=== PATIENT | male | born 1970 | race Caucasian/White ===

== ENCOUNTER 2017-09-16 19:56 | Inpatient (IN) | payer MEDICARE ==
[~2017-09-16] VITALS: Ht 162.6 cm; Wt 54.0 kg
[2017-09-16 20:00] VITALS: PULSE 100
[2017-09-16 20:06] VITALS: BP 127/68; PULSE 98; RESP 24; TEMP 97.5; O2SAT 91
[2017-09-16 20:35] VITALS: O2SAT 94
[2017-09-16 22:00] VITALS: PULSE 113
[2017-09-16] MEDS ORDERED: LIDO1SOL8 SWISH-SWAL (22:11)
[2017-09-16] MEDS ORDERED: MAGNESIUM HYDROXIDE SUSP 30 ML CUP PO PRN (22:15)
[2017-09-16] MEDS ORDERED: BISACODYL 10 MG SUPP RECTAL PRN (22:15)
[2017-09-16] MEDS ORDERED: ACETAMINOPHEN 325 MG TAB PO PRN (22:15)
[2017-09-16] MEDS ORDERED: RESP: ALBUTEROL 2.5 MG/IPRATROPIUM 0.5 MG NEB (PRN) INH (22:15)
[2017-09-16] MEDS ORDERED: MISCELLANEOUS NURSING INFORMATION XX SCH (22:15)
[2017-09-16] MEDS ORDERED: SODIUM CHLORIDE 0.9% FLUSH 10 ML FLUSH IV FLUSH PRN (22:15)
[2017-09-16] MEDS ORDERED: CHLORHEXIDINE GLUCONATE 2 % 1 PACK (2 CLOTHS) TOP PRN (22:15)
[2017-09-16] MEDS ORDERED: ONDANSETRON HCL 4 MG/2 ML VIAL IV PUSH PRN (22:15)
[2017-09-16] MEDS ORDERED: LACTULOSE SYRUP 20 GM/30 ML CUP PO PRN (22:15)
[2017-09-16] MEDS ORDERED: SENNOSIDES 8.6 MG TAB PO PRN (22:15)
[2017-09-16] MEDS ORDERED: LIVA2TAB PO (22:16)
[2017-09-16] MEDS ORDERED: ATAZ1TAB PO (22:16)
[2017-09-16] MEDS ORDERED: EMTR1TAB4 PO (22:19)
--- NOTE | 2017-09-16 22:20 | HHI.HP ---
HPI Service Critical Care Medicine Primary Care Physician Unknown Admission Diagnosis Diagnosis: Travel History International Travel<30 Days: No Contact w/Intl Traveler <30 Da: No Traveled to Known Affected Are: No History of Present Illness 47-year-old very pleasant gentleman with past medical history of HIV on HAART meds at home, compliant with medications and followed by Dr. Preston in [place] for almost 30 years ([phone]) presented to [facility] with complaints of cough, shortness of breath, and fatigue. He also had a mild fever and chills. The CT of the chest at [facility] revealed extensive large cavitary pneumonia, multiple blebs suggestive of likely COPD and bullous emphysema and secondary infected blebs. Initial sputum revealed presumptive Pseudomonas aeruginosa, resistant to Levaquin, sensitive to Zosyn. Patient underwent needle aspiration of one of the cavitary lesions. The procedure was complicated by development of pneumothorax and subcutaneous emphysema with continues air leak. For this the patient is transferred to [facility] for higher level of care and possible CT surgery consultation. Review of Systems Constitutional: COMPLAINS OF: Diaphoretic episodes, Fatigue, Fever, Weight loss , Chills, Dizziness, Night Sweats, DENIES: Weight gain, Change in appetite Endocrine: DENIES: Heat/cold intolerance, Polydipsia, Polyuria, Polyphagia Eyes: DENIES: Blurred vision, Diplopia, Eye inflammation, Eye pain, Vision loss , Photosensitivity, Double Vision Ears, nose, mouth, throat: DENIES: Tinnitus, Hearing loss, Vertigo, Nasal discharge, Oral lesions, Throat pain, Hoarseness, Ear Pain, Running Nose, Epistaxis, Sinus Pain, Toothache, Odynophagia Respiratory: COMPLAINS OF: Cough, Sputum production, Shortness of breath, DENIES: Apneas, Snoring, Wheezing, Hemoptysis Cardiovascular: DENIES: Chest pain, Palpitations, Syncope, Dyspnea on Exertion , PND, Lower Extremity Edema, Orthopnea, Claudication Gastrointestinal: DENIES: Abdominal pain, Black stools, Bloody stools, Constipation, Diarrhea, Nausea, Vomiting, Difficulty Swallowing, Anorexia Genitourinary: DENIES: Sexual dysfunction, Urinary frequency, Urinary incontinence, Urgency, Hematuria, Dysuria, Nocturia, Penile Discharge, Testicular Pain, Testicular Swelling Musculoskeletal: DENIES: Joint pain, Muscle aches, Stiffness, Joint Swelling, Back pain, Neck pain Integumentary: DENIES: Abnormal pigmentation, Nail changes, Pruritus, Rash Hematologic/lymphatic: DENIES: Bruising, Lymphadenopathy Immunologic/allergic: DENIES: Eczema, Urticaria Neurologic: DENIES: Abnormal gait, Headache, Localized weakness, Paresthesias, Seizures, Speech Problems, Tremor, Poor Balance Psychiatric: DENIES: Anxiety, Confusion, Mood changes, Depression, Hallucinations, Agitation, Suicidal Ideation, Homicidal Ideation, Delusions Past Family Social History Allergies: Coded Allergies: No Known Allergies (Unverified , 09/16/17) Past Medical History HIV Past Surgical History Neck and back surgery Reported Medications Reported Meds & Active Scripts Active Reported Descovy (Emtricitabine-Tenofovir Alafenamide) 200-25 mg Tab 1 Tab PO DAILY Evotaz (Atazanavir-Cobicistat) 300-150 Mg Tab 1 Tab PO DAILY Livalo (Pitavastatin) 2 Mg Tab 2 Mg PO DAILY Lidocaine Viscous Liq 2 % Liqd 5 Ml SWISH-SWAL QID PRN Active Ordered Medications Current Medications Medications (Trade) Dose Ordered Sig/Jose Route PRN Reason Start Time Stop Time Status Last Admin Dose Admin Sodium Chloride 1,000 ml @ 84 mls/hr [id number] IV 09/16/17 23:00 09/16/17 23:15 Sodium Chloride (NS Flush) 2 ml UNSCH PRN IV FLUSH FLUSH AFTER USING IV ACCESS 09/16/17 22:15 Sodium Chloride (NS Flush) 2 ml BID IV FLUSH 09/17/17 09:00 Acetaminophen (Tylenol) 650 mg Q6H PRN PO PAIN 1-5 AND/OR FEVER >101F 09/16/17 22:15 Hydromorphone HCl (Dilaudid Pf Inj) 1 mg Q4H PRN IV PAIN SCALE 6 TO 10 09/16/17 22:45 09/16/17 22:43 Famotidine (Pepcid Inj) 20 mg Q12HR IV PUSH 09/17/17 09:00 Ondansetron HCl (Zofran Inj) 4 mg Q6H PRN IV PUSH NAUSEA OR VOMITING 09/16/17 22:15 Temazepam (Restoril) 15 mg HS PRN PO INSOMNIA 09/16/17 22:15 Albuterol/ Ipratropium (Duoneb Neb) 1 ampule Q4HR NEB INH 09/17/17 00:00 09/16/17 23:11 Albuterol/ Ipratropium (Duoneb Neb) 1 ampule Q2HR NEB PRN INH WHEEZING 09/16/17 22:15 Heparin Sodium (Porcine) (Heparin Inj) 5,000 units Q8HR SQ 09/16/17 22:40 Miscellaneous Information 1 Q361D XX 09/16/17 22:15 09/16/17 22:15 Chlorhexidine Gluconate (Chlorhexidine 2% Cloth) 3 pack Taper DAILY@04 TOP 09/17/17 04:00 09/13/18 03:59 Chlorhexidine Gluconate (Chlorhexidine 2% Cloth) 3 pack UNSCH PRN TOP HYGIENIC CARE 09/16/17 22:15 Senna/Docusate Sodium (Ashwini-Colace) 1 tab BID PO 09/17/17 09:00 Magnesium Hydroxide (Milk Of Magnesia Liq) 30 ml Q12H PRN PO Mild constipation 09/16/17 22:15 Sennosides (Senokot) 17.2 mg Q12H PRN PO Moderate constipation 09/16/17 22:15 Bisacodyl (Dulcolax Supp) 10 mg DAILY PRN RECTAL SEVERE CONSITIPATION 09/16/17 22:15 Lactulose (Lactulose Liq) 30 ml DAILY PRN PO SEVERE CONSITIPATION 09/16/17 22:15 Cefepime HCl 2000 mg/Sodium Chloride 100 ml @ 200 mls/hr Q8H IV 09/16/17 23:00 09/16/17 23:04 Azithromycin 500 mg/Sodium Chloride 250 ml @ 250 mls/hr Q24H IV 09/17/17 00:00 09/16/17 23:04 Metronidazole 100 ml @ 100 mls/hr Q8HR IV 09/16/17 22:45 09/16/17 23:14 Patient Own Medication PT OWN MED: NF- (Atazana... DAILY PO 09/17/17 09:00 Future Hold Patient Own Medication NF-(Emtricitabine 200mg-Tenofovir [id number]... DAILY PO 09/17/17 09:00 Future Hold Pravastatin Sodium (Pravachol) 40 mg DAILY PO 09/17/17 09:00 Family History Family history significant of malignancy Social History Smokes half pack per day denies alcohol or illicit drug abuse Physical Exam Vital Signs Vital Signs Date Time Temp Pulse Resp B/P (MAP) Pulse Ox O2 Delivery O2 Flow Rate FiO2 09/16/17 20:06 97.5 98 24 127/68 (87) 91 Physical Exam GENERAL: Cachectic sick gentleman in moderate respiratory distress on facemask nonrebreather SKIN: Warm and dry. HEAD: Normocephalic. EYES: No scleral icterus. No injection or drainage. NECK: Supple, trachea midline. No JVD or lymphadenopathy. CARDIOVASCULAR: Regular rate and rhythm without murmurs, gallops, or rubs. RESPIRATORY: Breath sounds equal bilaterally. No accessory muscle use. GASTROINTESTINAL: Abdomen soft, non-tender, nondistended. MUSCULOSKELETAL: No cyanosis, or edema. BACK: Nontender without obvious deformity. NEURO EXAM: GCS: 15 Mental Status: The patient is alert and oriented to person, place, and time with normal speech. Cranial Nerves: Visual acuity intact bilaterally. Visual vazquez normal in all quadrants. Pupils are round, reactive to light. Extraocular movements are intact without ptosis. Hearing is normal bilaterally. Voice is normal. Tongue protrudes midline and moves symmetrically. Reflexes: Biceps, patellar, and Achilles are 2/4 bilaterally. No clonus. Laboratory Laboratory Tests Test 09/16/17 20:00 Nasal Screen MRSA (PCR) MRSA DETECTED Septic Shock Reassessment Septic shock perfusion: reassessment completed Caprini VTE Risk Assessment Caprini VTE Risk Assessment: Mod/High Risk (score >= 2) Caprini Risk Assessment Model Point Value = 1 Point Value = 2 Point Value = 3 Point Value = 5 Age 41-60 Minor surgery BMI > 25 kg/m2 Swollen legs Varicose veins or History of unexplained or recurrent spontaneous Oral contraceptives or hormone replacement Sepsis (< 1 month) Serious lung disease, including pneumonia (< 1 month) Abnormal pulmonary function Acute myocardial infarction Congestive heart failure (< 1 month) History of inflammatory bowel disease Medical patient at bed rest Age 61-74 Arthroscopic surgery Major open surgery (> 45 min) Laparoscopic surgery (> 45 min) Malignancy Confined to bed (> 72 hours) Immobilizing plaster cast Central venous access Age >= 75 History of VTE Family history of VTE Factor V Leiden Prothrombin [id number] Lupus anticoagulant Anticardiolipin antibodies Elevated serum homocysteine Heparin-induced thrombocytopenia Other congenital or acquired thrombophilia Stroke (< 1 month) Elective arthroplasty Hip, pelvis, or leg fracture Acute spinal cord injury (< 1 month) Prophylaxis Regimen Total Risk Factor Score Risk Level Prophylaxis Regimen 0-1 Low Early ambulation 2 Moderate Order ONE of the following: *Sequential Compression Device (SCD) *Heparin 5000 units SQ BID 3-4 Higher Order ONE of the following medications: *Heparin 5000 units SQ TID *Enoxaparin/Lovenox 40 mg SQ daily (WT < 150 kg, CrCl > 30 mL/min) *Enoxaparin/Lovenox 30 mg SQ daily (WT < 150 kg, CrCl > 10-29 mL/min) *Enoxaparin/Lovenox 30 mg SQ BID (WT < 150 kg, CrCl > 30 mL/min) AND/OR *Sequential Compression Device (SCD) 5 or more Highest Order ONE of the following medications: *Heparin 5000 units SQ TID (Preferred with Epidurals) *Enoxaparin/Lovenox 40 mg SQ daily (WT < 150 kg, CrCl > 30 mL/min) *Enoxaparin/Lovenox 30 mg SQ daily (WT < 150 kg, CrCl > 10-29 mL/min) *Enoxaparin/Lovenox 30 mg SQ BID (WT < 150 kg, CrCl > 30 mL/min) AND *Sequential Compression Device (SCD) Assessment and Plan Assessment and Plan Subcutaneous emphysema Pneumothorax - Continue Chest tube in place to low wall suction - Pulmonary and cardiothoracic surgery consultation - CXR daily Pseudomonas pneumonia - Continue Zosyn per sensitivity from [facility] - Infectious disease consultation HIV infection - Continue home HAART meds - Further per ID COPD - DuoNeb scheduled and when necessary - No wheezing - No indication for steroids - Pulmonary consultation DVT GI prophylaxis - Teds SCDs - Subcutaneous heparin - Pepcid Critical Care: The total critical care time was 35 minutes. Time to perform other separately billable procedures was not included in the critical care time. Сергей Trujillo MD Sep 16, 2017 10:20 pm
[2017-09-16] MEDS: HEPARIN SODIUM - SQ 10,000 UNITS/ML VIAL SQ SCH (22:40)
[2017-09-16] MEDS: HYDROmorphone HCL PF 2 MG/ML VIAL IV PRN (22:43)
[2017-09-16] MEDS ORDERED: metroNIDAZOLE 500 MG INJ 100 ML IV SCH (22:45)
[2017-09-16] MEDS ORDERED: CEFEPIME INJ 2,000 MG in SODIUM CHLORIDE 0.9% INJ 100 ML IV SCH (23:00)
[2017-09-16] MEDS: RESP: ALBUTEROL 2.5 MG/IPRATROPIUM 0.5 MG NEB (SCH) INH (23:11)
[2017-09-16] MEDS: SODIUM CHLOR 0.9% 1000 ML INJ 1,000 ML IV SCH (23:15)
[2017-09-17] VITALS (14 sets, daily range): BP systolic 106–128; BP diastolic 57–75; PULSE 87–105; RESP 18–32; TEMP 97.6–98.6; O2SAT 92–98
[2017-09-17] MEDS ORDERED: AZITHROMYCIN INJ 500 MG in SODIUM CHLOR 0.9% 250 ML INJ 250 ML IV SCH ×2
[2017-09-17] MEDS: RESP: ALBUTEROL 2.5 MG/IPRATROPIUM 0.5 MG NEB (SCH) INH ×5 (03:12→20:01)
[2017-09-17 03:16] LABS: AUTOMATED NEUTROPHIL # 28.5 TH/MM3 (1.8-7.7); BASOPHIL % 0.1 % (0.0-2.0); EOSINOPHIL % 0.1 % (0.0-4.0); HEMATOCRIT 35.1 % (39.0-51.0); HEMOGLOBIN 11.9 GM/DL (13.0-17.0); LYMPH % 3.6 % (9.0-44.0); LYMPHOCYTE # 1.1 TH/MM3 (1.0-4.8); MEAN CELL VOLUME 90.8 FL (80.0-100.0); MEAN CORPUSCULAR HEMOGLOBIN 30.9 PG (27.0-34.0); MEAN PLATELET VOLUME 6.2 FL (7.0-11.0); MONO % 4.2 % (0.0-8.0); MONOCYTE # 1.3 TH/MM3 (0-0.9); PLATELET COUNT 413 TH/MM3 (150-450); RED BLOOD COUNT 3.86 MIL/MM3 (4.50-5.90); RED CELL DISTRIBUTION WIDTH 13.7 % (11.6-17.2); WHITE BLOOD COUNT 30.9 TH/MM3 (4.0-11.0)
[2017-09-17 03:26] LABS: INTERNATIONAL NORMALIZED RATIO 1.2 RATIO; PROTHROMBIN TIME - PATIENT 11.9 SEC (9.8-11.6)
[2017-09-17 03:34] LABS: ALBUMIN 1.6 GM/DL (3.4-5.0); ALT (GPT) 30 U/L (12-78); AST (GOT) 22 U/L (15-37); BICARBONATE 30.2 MEQ/L (21.0-32.0); BLOOD UREA NITROGEN 32 MG/DL (7-18); CALCIUM 8.5 MG/DL (8.5-10.1); CHLORIDE 101 MEQ/L (98-107); CREATININE 0.55 MG/DL (0.60-1.30); GLOMERULAR FILTRATION RATE 158 ML/MIN (>89); GLUCOSE,RANDOM 87 MG/DL (74-106); MAGNESIUM 2.3 MG/DL (1.5-2.5); PHOSPHORUS 2.7 MG/DL (2.5-4.9); SODIUM (NA) 137 MEQ/L (136-145)
[2017-09-17 03:37] LABS: ALKALINE PHOSPHATASE 132 U/L (45-117); TOTAL BILIRUBIN ADULT 3.5 MG/DL (0.2-1.0); TOTAL PROTEIN 5.6 GM/DL (6.4-8.2)
[2017-09-17] MEDS: HYDROmorphone HCL PF 2 MG/ML VIAL IV PRN ×5 (03:45→19:42)
[2017-09-17] MEDS: CHLORHEXIDINE GLUCONATE 2 % 1 PACK (2 CLOTHS) TOP SCH ×2 (03:46→23:05)
[2017-09-17 04:41] LABS: BANDS 16 % (0-6); METAMYELOCYTES 2 % (0-1); MONOCYTES 1 % (0-8); NEUTROPHIL # MANUAL DIFF 30.6 TH/MM3 (1.8-7.7); POLYS (SEG NEUTROPHILS) 81 % (16-70)
[2017-09-17 04:42] LABS: TOXIC GRANULATION 1+ (NORMAL)
[2017-09-17] MEDS: HEPARIN SODIUM - SQ 10,000 UNITS/ML VIAL SQ SCH ×3 (05:22→21:39)
[2017-09-17] MEDS: PIPERACIL-TAZO 4.5 GM PREMIX 100 ML IV SCH ×4 (05:22→21:40)
--- NOTE | 2017-09-17 05:40 | RADRPT ---
EXAM DATE/TIME: 09/17/2017 03:16 [place] COMPARISON: No previous studies available for comparison. INDICATIONS : Shortness of breath, possible pneumonia. MEDICAL HISTORY : None. SURGICAL HISTORY : None. ENCOUNTER: Initial ACUITY: 1 day PAIN SCORE: 0/10 LOCATION: Bilateral chest FINDINGS: A single AP semierect view of the chest was obtained and demonstrates a right-sided chest tube in nallely ce with the tip projected over the right side of the mediastinum. There is a right basilar pneumothor ax which is small to moderate in size. There is extensive subcutaneous emphysema bilaterally. There i s a large focal masslike area of high density in the right midlung. This measures up to approximately 6.6 cm. There is a more loculated appearing component of the pneumothorax above this. There is focal opacity at the right medial lung base. The left lung appears clear. The ribs appear intact. There ar e electrocardiogram leads. There is no effusion. There is no midline shift. CONCLUSION: 1. Right-sided chest tube in place with moderate right pneumothorax. There is a loculated pneumothora x component projects over the upper lobe and extensive bilateral subcutaneous emphysema. 2. Large masslike opacity in the right midlung. Adam Reis MD on September 17, 2017 at 5:35 Board Certified Radiologist. This report was verified electronically.
[2017-09-17] MEDS: DOCUSATE SODIUM 50 MG/SENNA 8.6 MG TAB PO SCH ×2 (08:26→19:43)
[2017-09-17] MEDS: FAMOTIDINE 20 MG/2 ML VIAL IV PUSH SCH ×2 (08:26→19:43)
[2017-09-17] MEDS: SODIUM CHLORIDE 0.9% FLUSH 10 ML FLUSH IV FLUSH SCH ×2 (08:26→19:38)
[2017-09-17] MEDS: PRAVASTATIN SOD 40 MG TAB PO SCH (08:26)
[2017-09-17] MEDS ORDERED: ATAZANAVIR 300 MG PO SCH (09:00)
[2017-09-17] MEDS ORDERED: TENOFOVIR ALAFENAMIDE 25 MG PO SCH (09:00)
[2017-09-17] MEDS ORDERED: COBICISTAT 150 MG PO SCH (09:00)
[2017-09-17] MEDS ORDERED: EMTRICITABINE 200 MG PO SCH (09:00)
[2017-09-17] MEDS: SODIUM CHLOR 0.9% 1000 ML INJ 1,000 ML IV SCH ×2 (11:37→21:43)
--- NOTE | 2017-09-17 11:53 | PD.ID.CON ---
History of Present Illness Service ID Consult Requested By Reason for Consult evaluation and Mment of Pseudomonas Pneumonia in a patient with preexisiting bleb. Primary Care Physician Unknown Diagnoses: History of Present Illness is a 47 y/o CM with PMHx of HIV on HAART for past 30 years per in [place]. I could not reach him at number provided [phone] will attempt to call him when more info available from [facility]. Info from [facility] reviewed, no culture micro data available. Reviewed hospitalist and ID notes and following information obtained so far. Patient is reportedly compliant with HIV meds with undetectable viral load and CD4 unknown. Patient reports to me that he was being treated with oral levaquin as outpatient for Pneumonia. Despite being treated for Pneumonia he had chest pain. When he presented to [facility] with complaints of cough, shortness of breath, and fatigue. He also had a mild fever and chills. The CT of the chest at [facility] revealed extensive large cavitary pneumonia, multiple blebs suggestive of likely COPD and bullous emphysema and secondary infected blebs. Patients PCP status is not known at present time and if this bleb is as a result of COPD or PCP related bullae. Initial sputum revealed presumptive Pseudomonas aeruginosa, resistant to Levaquin, sensitive to Zosyn. Patient underwent needle aspiration of one of the cavitary lesions. The procedure was complicated by development of pneumothorax and subcutaneous emphysema with continues air leak. Post procedure patient developed swelling around the neck and therefore it appears patient was transferred to [facility] for higher level of care and possible CT surgery consultation. ID is consulted for evaluation and Mment of Pseudomonas Pneumonia in a patient with preexisiting bleb. Review of Systems ROS Limitations: Poor Historian Constitutional: COMPLAINS OF: Weight loss, Change in appetite, DENIES: Diaphoretic episodes, Fatigue, Fever, Weight gain, Chills, Dizziness, Night Sweats Endocrine: DENIES: Heat/cold intolerance, Polydipsia, Polyuria, Polyphagia Eyes: DENIES: Blurred vision, Diplopia, Eye inflammation, Eye pain, Vision loss , Photosensitivity, Double Vision Ears, nose, mouth, throat: DENIES: Tinnitus, Hearing loss, Vertigo, Nasal discharge, Oral lesions, Throat pain, Hoarseness, Ear Pain, Running Nose, Epistaxis, Sinus Pain, Toothache, Odynophagia Respiratory: COMPLAINS OF: Shortness of breath Cardiovascular: COMPLAINS OF: Chest pain, DENIES: Palpitations, Syncope, Dyspnea on Exertion, PND, Lower Extremity Edema, Orthopnea, Claudication Gastrointestinal: DENIES: Abdominal pain, Black stools, Bloody stools, Constipation, Diarrhea, Nausea, Vomiting, Difficulty Swallowing, Anorexia Genitourinary: DENIES: Sexual dysfunction, Urinary frequency, Urinary incontinence, Urgency, Hematuria, Dysuria, Nocturia, Penile Discharge, Testicular Pain, Testicular Swelling Musculoskeletal: DENIES: Joint pain, Muscle aches, Stiffness, Joint Swelling, Back pain, Neck pain Integumentary: DENIES: Abnormal pigmentation, Nail changes, Pruritus, Rash Hematologic/lymphatic: DENIES: Bruising, Lymphadenopathy Immunologic/allergic: DENIES: Eczema, Urticaria Neurologic: DENIES: Abnormal gait, Headache, Localized weakness, Paresthesias, Seizures, Speech Problems, Tremor, Poor Balance Psychiatric: DENIES: Anxiety, Confusion, Mood changes, Depression, Hallucinations, Agitation, Suicidal Ideation, Homicidal Ideation, Delusions Except as stated in HPI: all other systems reviewed are Neg Past Family Social History Allergies: Coded Allergies: No Known Allergies (Unverified , 09/16/17) Past Medical History HIV Past Surgical History Neck and back surgery Reported Medications Reported Meds & Active Scripts Active Reported Descovy (Emtricitabine-Tenofovir Alafenamide) 200-25 mg Tab 1 Tab PO DAILY Evotaz (Atazanavir-Cobicistat) 300-150 Mg Tab 1 Tab PO DAILY Livalo (Pitavastatin) 2 Mg Tab 2 Mg PO DAILY Lidocaine Viscous Liq 2 % Liqd 5 Ml SWISH-SWAL QID PRN Active Ordered Medications Current Medications Medications (Trade) Dose Ordered Sig/Jose Route Start Time Stop Time Status Last Admin Sodium Chloride 1,000 ml @ 84 mls/hr [id number] IV 09/16/17 23:00 09/17/17 11:37 (NS Flush) 2 ml UNSCH PRN IV FLUSH 09/16/17 22:15 (NS Flush) 2 ml BID IV FLUSH 09/17/17 09:00 09/17/17 08:26 (Tylenol) 650 mg Q6H PRN PO 09/16/17 22:15 (Dilaudid Pf Inj) 1 mg Q4H PRN IV 09/16/17 22:45 09/17/17 11:36 (Pepcid Inj) 20 mg Q12HR IV PUSH 09/17/17 09:00 09/17/17 08:26 (Zofran Inj) 4 mg Q6H PRN IV PUSH 09/16/17 22:15 (Restoril) 15 mg HS PRN PO 09/16/17 22:15 (Duoneb Neb) 1 ampule Q4HR NEB INH 09/17/17 00:00 09/17/17 11:10 (Duoneb Neb) 1 ampule Q2HR NEB PRN INH 09/16/17 22:15 (Heparin Inj) 5,000 units Q8HR SQ 09/16/17 22:40 09/17/17 05:22 Miscellaneous Information 1 Q361D XX 09/16/17 22:15 09/16/17 22:15 (Chlorhexidine 2% Cloth) 3 pack Taper DAILY@04 TOP 09/17/17 04:00 09/13/18 03:59 09/17/17 03:46 (Chlorhexidine 2% Cloth) 3 pack UNSCH PRN TOP 09/16/17 22:15 (Ashwini-Colace) 1 tab BID PO 09/17/17 09:00 09/17/17 08:26 (Milk Of Magnesia Liq) 30 ml Q12H PRN PO 09/16/17 22:15 (Senokot) 17.2 mg Q12H PRN PO 09/16/17 22:15 (Dulcolax Supp) 10 mg DAILY PRN RECTAL 09/16/17 22:15 (Lactulose Liq) 30 ml DAILY PRN PO 09/16/17 22:15 Patient Own Medication PT OWN MED: NF- (Atazana... DAILY PO 09/17/17 09:00 Future Hold Patient Own Medication NF-(Emtricitabine 200mg-Tenofovir [id number]... DAILY PO 09/17/17 09:00 Future Hold (Pravachol) 40 mg DAILY PO 09/17/17 09:00 09/17/17 08:26 Piperacillin Sod/ Tazobactam Sod 100 ml @ 200 mls/hr Q6H IV 09/17/17 05:00 09/17/17 11:36 Family History reviewed Social History Lives with partner. From [facility]. Physical Exam Vital Signs Vital Signs Date Time Temp Pulse Resp B/P (MAP) Pulse Ox O2 Delivery O2 Flow Rate FiO2 09/17/17 08:08 98 Partial Rebreather 09/17/17 06:00 100 09/17/17 04:15 18 09/17/17 04:00 105 09/17/17 04:00 97.9 105 18 115/62 (79) 92 09/17/17 03:11 98 Partial Rebreather 13.00 09/17/17 02:00 97 09/17/17 00:00 98.0 102 20 128/75 (92) 94 09/17/17 00:00 102 09/16/17 22:00 113 09/16/17 20:35 94 Non-Rebreather 15.00 100 09/16/17 20:06 97.5 98 24 127/68 (87) 91 09/16/17 20:00 100 Physical Exam GENERAL: Thin built patient, in no apparent distress. SKIN: No rashes, ecchymoses or lesions. Cool and dry. HEAD: Atraumatic. Normocephalic. No temporal or scalp tenderness. EYES: Pupils equal round and reactive. Extraocular motions intact. No scleral icterus. No injection or drainage. ENT: Mask on face. Oral thrush. NECK: Trachea midline. Supple, nontender, no meningeal signs. CARDIOVASCULAR: HS audible. RESPIRATORY: Decreased AE on Right side. Rt side CT in place. GASTROINTESTINAL: Abdomen soft, non-tender, nondistended. MUSCULOSKELETAL: Extremities without clubbing, cyanosis, or edema. NEUROLOGICAL: Awake and alert. Non focal exam Psych cooperative IV line sites with no e.o infection Laboratory Laboratory Tests Test 09/16/17 20:00 09/17/17 03:05 Nasal Screen MRSA (PCR) MRSA DETECTED White Blood Count 30.9 Red Blood Count 3.86 Hemoglobin 11.9 Hematocrit 35.1 Mean Corpuscular Volume 90.8 Mean Corpuscular Hemoglobin 30.9 Mean Corpuscular Hemoglobin Concent 34.0 Red Cell Distribution Width 13.7 Platelet Count 413 Mean Platelet Volume 6.2 Neutrophils (%) (Auto) 92.0 Lymphocytes (%) (Auto) 3.6 Monocytes (%) (Auto) 4.2 Eosinophils (%) (Auto) 0.1 Basophils (%) (Auto) 0.1 Neutrophils # (Auto) 28.5 Lymphocytes # (Auto) 1.1 Monocytes # (Auto) 1.3 Eosinophils # (Auto) 0.0 Basophils # (Auto) 0.0 CBC Comment AUTO DIFF Differential Total Cells Counted 100 Neutrophils % (Manual) 81 Band Neutrophils % 16 Monocytes % 1 Neutrophils # (Manual) 30.6 Metamyelocytes 2 Differential Comment FINAL DIFF MANUAL Toxic Granulation 1+ Platelet Estimate NORMAL Platelet Morphology Comment NORMAL Prothrombin Time 11.9 Prothromb Time International Ratio 1.2 Blood Urea Nitrogen 32 Creatinine 0.55 Random Glucose 87 Total Protein 5.6 Albumin 1.6 Calcium Level 8.5 Phosphorus Level 2.7 Magnesium Level 2.3 Alkaline Phosphatase 132 Aspartate Amino Transf (AST/SGOT) 22 Alanine Aminotransferase (ALT/SGPT) 30 Total Bilirubin 3.5 Sodium Level 137 Potassium Level 3.4 Chloride Level 101 Carbon Dioxide Level 30.2 Anion Gap 6 Estimat Glomerular Filtration Rate 158 Lactic Acid Level 1.0 Date/Time Source Procedure Growth Status 09/17/17 00:35 Blood Peripheral Aerobic Blood Culture Pending Received 09/17/17 00:35 Blood Peripheral Anaerobic Blood Culture Pending Received Result Diagram: 09/17/17 0305 09/17/17 0305 Imaging Last Impressions Chest X-Ray 09/17/17 0000 Signed Impressions: Service Date/Time: August 03:16 - CONCLUSION: 1. Right-sided chest tube in place with moderate right pneumothorax. There is a loculated pneumothorax component projects over the upper lobe and extensive bilateral subcutaneous emphysema. 2. Large masslike opacity in the right midlung. Adam Reis MD Assessment and Plan Assessment and Plan Lung masses/abscesses or both. Pseudomonas Pneumonia. Unsure of the timing of the blebs (if these occurred years back as a result of COPD or PCP related Blebs) Acute resp failure Pneumothorax : ? post procedure vs spontaneous from bleb leak. HIV on HAART reportedly well controlled with undetectable viral load. High grade leucocytosis (sepsis, ? steroids) Recs: Continue Zosyn IV Sputum culture and gram stain Blood cultures x 2 CT chest with IV contrast: jl Minor. At risk for malignancy and infections due to HIV status. 2D ECHO r/o vegetations/endocarditis. 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 Follow cultures Follow clinically. dw MDs and patient: source control is important. May benefit from lung resection of one of the larger areas if clinically possible will defer to CTS. dw significant other in the room and patient: updated about plan: urgency to obtain micro and path and CTS opinion first. Depending on their input will provide further recs and also discuss with . Explained to partner I will speak to after more info as at this point I am in process of data gathering and addressing acute infectious process. Critical thinking and decision making. I will be off 09/18/2017 to 09/20/2017. Other ID MDs covering for me. Please check with [facility] call center. Anita Interiano MD Sep 17, 2017 11:53
[2017-09-17] MEDS: DESCOVY PO SCH (14:00)
[2017-09-17] MEDS: EVOTAZ PO SCH (14:00)
[2017-09-17] MEDS: ACETAMINOPHEN/HYDROcodone 325 MG/10 MG TAB PO PRN ×2 (16:14→21:39)
--- NOTE | 2017-09-17 17:54 | HHI.CCPN ---
Subjective Remarks/Hospital Course 09/16: 47-year-old very pleasant gentleman with past medical history of HIV on HAART meds at home, compliant with medications and followed by Dr. Preston in [place] for almost 30 years ([phone]) presented to [facility] with complaints of cough, shortness of breath, and fatigue. He also had a mild fever and chills. The CT of the chest at [facility] revealed extensive large cavitary pneumonia, multiple blebs suggestive of likely COPD and bullous emphysema and secondary infected blebs. Initial sputum revealed presumptive Pseudomonas aeruginosa, resistant to Levaquin, sensitive to Zosyn. Patient underwent needle aspiration of one of the cavitary lesions. The procedure was complicated by development of pneumothorax and subcutaneous emphysema with continues air leak. For this the patient is transferred to [facility] for higher level of care and possible CT surgery consultation. 09/17: Remains on partial rebreather. Persistent large air leak noted from right sided chest tube. Complains of chest pain off and on. Objective Vital Signs Date Time Temp Pulse Resp B/P (MAP) Pulse Ox O2 Delivery O2 Flow Rate FiO2 09/17/17 16:00 104 32 113/57 (75) 96 09/17/17 12:00 97.6 09/17/17 08:08 Partial Rebreather 09/17/17 03:11 13.00 09/16/17 20:35 100 Intake and Output 09/17/17 09/17/17 09/18/17 08:00 16:00 00:00 Intake Total 100 ml Output Total 550 ml Balance -450 ml Result Diagram: 09/17/17 0305 09/17/17 0305 Objective Remarks GENERAL: Cachectic sick gentleman in moderate respiratory distress on facemask partial rebreather SKIN: Warm and dry. HEAD: Normocephalic. EYES: No scleral icterus. No injection or drainage. NECK: Supple, trachea midline. No JVD or lymphadenopathy. CARDIOVASCULAR: Regular rate and rhythm without murmurs, gallops, or rubs. RESPIRATORY: Good air entry bilaterally no wheezing or crackles. Scattered rhonchi bilaterally. Right sided chest tube in place with significant positive air leak GASTROINTESTINAL: Abdomen soft, non-tender, nondistended. MUSCULOSKELETAL: No cyanosis, or edema. BACK: Nontender without obvious deformity. NEURO EXAM: Awake alert oriented 3, nonfocal grossly. A/P Assessment and Plan Subcutaneous emphysema Right Pneumothorax - Continue Chest tube in place to low wall suction - Pulmonary and cardiothoracic surgery consultation - CXR daily Pseudomonas pneumonia -Antibiotics per ID HIV infection - Continue home HAART meds - Further per ID COPD - DuoNeb scheduled and when necessary - No wheezing - No indication for steroids - Pulmonary consultation DVT GI prophylaxis - Teds SCDs - Subcutaneous heparin - Pepcid Discussed with Dr. Jose Camacho, D/W ID Possible plan for surgery next week per Dr. Camacho the pulmonary status is precarious. Philip Interiano MD Sep 17, 2017 17:54
--- NOTE | 2017-09-17 18:16 | MB ---
cc: Crow NULL DATE OF CONSULTATION 09/17/17 Mr. Ibrahim is a 47-year-old white male with a longstanding history of HIV, on therapy with a doctor in [facility]. He was admitted to [facility] for pneumonia. He was found to have cavitary infiltrate extensive in the right upper lobe as well as multiple blebs suggesting COPD/emphysema. He apparently had an aspiration of the infiltrate which revealed Pseudomonas. As a consequence of that procedure, he developed a pneumothorax, had a tube inserted and has had a persistent air leak. He was transferred here for consideration of additional interventions for the air leak and continued treatment of the infection. The patient is a two pack per day smoker, has smoked since he was a teen. Denies ever having been diagnosed with COPD prior to this, although he was given aerosol treatments two years ago with relief when he had what sounds like an exacerbation. PAST MEDICAL HISTORY 1. Longstanding history of HIV but with apparently very few complications currently on therapy. 2. Neck surgery, what sounds like a fusion for arthritis. No prior cardiovascular history. ALLERGIES None known. MEDICATIONS Reviewed in the EMR. SOCIAL HISTORY No alcohol or drug abuse. He lives with a male partner. REVIEW OF SYSTEMS He has had cough with some sputum. No hemoptysis. No chest pain. He developed subcutaneous air after the pneumothorax. That has apparently improved, but his voice has not returned to normal. Some chest discomfort, precordial, at present since the time of the chest tube insertion. No nausea, vomiting, abdominal pain or change in bowel habits and no chronic edema. PHYSICAL EXAMINATION VITAL SIGNS: 98 degrees, 113/60, respirations are 22, pulse is 100. HEENT: Sclerae anicteric. Mucous membranes are moist. NECK: Neck veins are not distended. LUNGS: Breath sounds are diminished, some scattered congestion, particularly on the right, no wheezing. HEART: Regular rhythm. No harsh murmur. EXTREMITIES: No peripheral edema. IMAGING STUDIES Chest x-ray Reveals a right upper lobe cavity with infiltrate at the base, possibly one or two air-fluid levels, patchy infiltrate in the left hilar region and at the right heart border. CT scan is pending. He has subcutaneous air as well and a chest tube in good position. I should have mentioned that the chest tube has an active air leak. DISCUSSION Mr. Ibrahim presents with what appears to be a large bulla in the right upper lobe, probably underlying emphysema given the history of smoking for his entire adult life. He also has HIV though and infectious disease is evaluating him and requesting the microbiology and pathology reports from the previous hospital. Thoracic surgery has also been consulted in light of the persistent air leak. We will continue him on oxygen therapy, tube to water seal, aerosol treatments three times a day and as needed. Further diagnostic and/or therapeutic intervention will depend on his ongoing clinical course. R. MD LAURI Canales/ /4:25 PM /5:54 PM
--- NOTE | 2017-09-17 20:59 | MB ---
cc: TOD WYLIE MD DATE OF CONSULTATION 09/17/17 1968 HISTORY OF PRESENT ILLNESS A 47-year-old male, history of HIV positive on heart medication HAART for the last 30 years with a doctor in [facility] who apparently is compliant with his medications with an undetectable viral load, CD-4 count was unknown. He was treated recently with Levaquin for outpatient pneumonia. He presented to [facility] on the , found to have cavitary pneumonia and, because of his HIV, they had also found that his CT scan showed an extensive large cavitary pneumonia, multiple blebs suggested of likely COPD, bullous emphysema and secondary infected blebs. The patient underwent needle aspiration of one of the cavitary lesions and it was complicated by development of a large hemothorax and subcutaneous emphysema with continuous air leak. They transferred the patient to our facility for higher care and for cardiovascular surgery consultation. They consulted Infectious Disease for evaluation of Pseudomonas pneumonia in a patient with preexisting blebs. PAST MEDICAL HISTORY 1. HIV positive. 2. Apparently has had significant weight loss in the several months, BMI of 17, marked muscle waist. PAST SURGICAL HISTORY Neck and back surgery. ALLERGIES No known allergies MEDICATIONS 1. Albuterol 2. 3. Fluconazole. 4. Duonebs. 5. Levaquin. 6. Singulair. 7. Neomycin 8. Polymyxin 90. 9. Nystatin 10. ____statin FAMILY HISTORY No history of the colon cancer or liver disease. SOCIAL HISTORY Smokes half a pack per day. No alcohol or illicit drugs. REVIEW OF SYSTEMS Positive for shortness of breath. No current chest pain. He has had some pain at site of his chest tube. Positive for recent weight loss. No joint swelling, redness, no paresthesia, no dysuria. PHYSICAL EXAMINATION VITAL SIGNS: Blood pressure 114/60, heart rate 104, temperature max 97.6, respiratory rate 26-28. GENERAL: He is awake, alert. He has a partial non-rebreather in place. HEENT: Head is normocephalic, atraumatic. Pupils equal and reactive. Oral mucosa pink, moist. NECK: Supple. No JVD. CARDIAC: S1, S2 slightly tachycardiac. No audible rubs or gallops. LUNGS: Very diminished in the bases, right versus the left. He has a pigtail catheter in the right with a positive air leak, minimal drainage. He has some subcuticular emphysema on the right upper chest wall. ABDOMEN: Soft, flat, concave. EXTREMITIES: No cyanosis, clubbing or edema. LABORATORY DATA Hemoglobin 11, hematocrit 35, white cell count of 30,000, platelet count 413. Sodium 137, potassium 3.4, BUN of 32, creatinine 0.5, CRP of 5.4, INR 1.2. MRSA nondetected. Blood cultures are pending. IMAGING STUDIES Chest x-ray shows some moderate right pneumothorax, loculated pneumothorax upper lobe, extensive bilateral subcu emphysema. IMPRESSION This is a 47-year-old with history of COPD, emphysema with bulla that was found to have a cavitary pneumonia where they did a biopsy. We will try to obtain the path report from [facility]. In the meantime, the patient will require right upper lobe lobectomy but we will need to discuss what his CD-4 counts are as I do not have that at this time. Also will not be able to evaluate with a pulmonary function test due to his current need for high-flow O2. Procedure, alternatives and risks will be discussed by Dr. Tod Wylie. Planning is possibly on Thursday. We will continue to try to wean the patient from the amount of O2 that he is. BRAYAN Killian Dictating for MD Blanquita Pryor/ /4:42 PM /8:27 PM
[2017-09-17] MEDS ORDERED: IOHEXOL 350 MG/ML 10 ML VIAL (for RAD DIAG) IVCONTRAST ONE (21:28)
[2017-09-17] MEDS: TEMAZEPAM 15 MG CAP PO PRN (21:39)
--- NOTE | 2017-09-17 22:00 | RADRPT ---
EXAM DATE/TIME: 09/17/2017 21:03 [place] COMPARISON: No previous studies available for comparison. INDICATIONS : Shortness of breath. Lung mass vs abscess. IV CONTRAST: 50 cc Omnipaque 350 (iohexol) IV RADIATION DOSE: 5.71 CTDIvol (mGy) MEDICAL HISTORY : None SURGICAL HISTORY : None. ENCOUNTER: Initial ACUITY: 1 day PAIN SCALE: 0/10 LOCATION: chest TECHNIQUE: Volumetric scanning of the chest was performed. Using automated exposure control and adjustment of t he mA and/or kV according to patient size, radiation dose was kept as low as reasonably achievable to obtain optimal diagnostic quality images. DICOM format image data is available electronically for r eview and comparison. Follow-up recommendations for detected pulmonary nodules are based at a minimum on nodule size and pa tient risk factors according to Fleischner Society Guidelines. FINDINGS: LUNGS: There is a large cavitary mass measuring 10.3 x 12.9 cm in the right apex with air-fluid level. This appears parenchymal with apparent communication to a right upper lobe bronchus. Moderate centrilobula r this edema of the left lung apex. Additional cavitary bilateral nodules which are largely subcentim eter in size. Air space consolidation at the extreme lung bases. PLEURA: Apical right anterior chest tube in good position. Moderate residual right-sided hydropneumothorax wi th abdominal phase subpulmonic air. MEDIASTINUM: Pneumomediastinum. Multiple subcentimeter mediastinal nodes. Slightly prominent right hilar lymph nod e. Very trace anterior pericardial effusion. Heart is otherwise unremarkable. AXILLAE: Extensive subcutaneous emphysema bilaterally. MUSCULOSKELETAL: Extensive soft tissue subcutaneous emphysema. MISCELLANEOUS: The visualized upper abdominal organs demonstrate no acute abnormality. POST CONTRAST: No abnormal areas of enhancement are seen. CONCLUSION: 1. Large cavitary mass measuring 10.3 x 12.9 cm in the right apex which appears parenchymal and is co nsistent with cavitary lung mass, abscess or secondarily infected. There are additional bilateral sub centimeter cavitary lung nodules. 2. Well-positioned apical right anterior chest tube with moderate residual right-sided inferior hydro pneumothorax. Patient may benefit from second inferiorly placed chest tube. 3. Extensive subcutaneous emphysema and pneumomediastinum. Charli Linder MD on September 17, 2017 at 21:51 Board Certified Radiologist. This report was verified electronically.
[2017-09-18] VITALS (21 sets, daily range): BP systolic 86–114; BP diastolic 53–69; PULSE 74–122; RESP 23–40; TEMP 97.9–98.9; O2SAT 96–100
[2017-09-18] MEDS: HYDROmorphone HCL PF 2 MG/ML VIAL IV PRN ×4 (05:29→18:53)
[2017-09-18] MEDS: HEPARIN SODIUM - SQ 10,000 UNITS/ML VIAL SQ SCH ×3 (05:30→20:22)
[2017-09-18] MEDS: PIPERACIL-TAZO 4.5 GM PREMIX 100 ML IV SCH ×4 (05:30→21:31)
[2017-09-18 05:32] LABS: AUTOMATED NEUTROPHIL # 14.6 TH/MM3 (1.8-7.7); BASOPHIL % 0.1 % (0.0-2.0); EOSINOPHIL % 0.1 % (0.0-4.0); HEMATOCRIT 30.5 % (39.0-51.0); HEMOGLOBIN 10.4 GM/DL (13.0-17.0); LYMPH % 5.9 % (9.0-44.0); MEAN CELL VOLUME 92.4 FL (80.0-100.0); MEAN CORPUSCULAR HEMOGLOBIN 31.6 PG (27.0-34.0); MEAN CORPUSCULAR HGB CONC 34.2 % (32.0-36.0); MEAN PLATELET VOLUME 6.1 FL (7.0-11.0); MONOCYTE # 1.2 TH/MM3 (0-0.9); NEUT % 86.9 % (16.0-70.0); PLATELET COUNT 360 TH/MM3 (150-450); RED CELL DISTRIBUTION WIDTH 13.8 % (11.6-17.2); WHITE BLOOD COUNT 16.7 TH/MM3 (4.0-11.0)
[2017-09-18 05:54] LABS: ALBUMIN 1.5 GM/DL (3.4-5.0); ALKALINE PHOSPHATASE 120 U/L (45-117); ALT (GPT) 22 U/L (12-78); AST (GOT) 21 U/L (15-37); BLOOD UREA NITROGEN 17 MG/DL (7-18); CALCIUM 8.2 MG/DL (8.5-10.1); CHLORIDE 101 MEQ/L (98-107); CREATININE 0.46 MG/DL (0.60-1.30); GLOMERULAR FILTRATION RATE 195 ML/MIN (>89); GLUCOSE,RANDOM 69 MG/DL (74-106); SODIUM (NA) 136 MEQ/L (136-145); TOTAL BILIRUBIN ADULT 0.7 MG/DL (0.2-1.0); TOTAL PROTEIN 5.2 GM/DL (6.4-8.2)
[2017-09-18] MEDS: RESP: ALBUTEROL 2.5 MG/IPRATROPIUM 0.5 MG NEB (SCH) INH ×3 (07:19→19:43)
[2017-09-18] MEDS: DOCUSATE SODIUM 50 MG/SENNA 8.6 MG TAB PO SCH ×2 (09:00→20:22)
[2017-09-18] MEDS: SODIUM CHLORIDE 0.9% FLUSH 10 ML FLUSH IV FLUSH SCH ×2 (09:00→20:21)
[2017-09-18] MEDS: EVOTAZ PO SCH (09:14)
[2017-09-18] MEDS: DESCOVY PO SCH (09:14)
[2017-09-18] MEDS: FAMOTIDINE 20 MG/2 ML VIAL IV PUSH SCH ×2 (09:14→20:20)
[2017-09-18] MEDS: PRAVASTATIN SOD 40 MG TAB PO SCH (09:15)
--- NOTE | 2017-09-18 09:28 | HHI.CCPN ---
Subjective Remarks/Hospital Course 09/16: 47-year-old very pleasant gentleman with past medical history of HIV on HAART meds at home, compliant with medications and followed by Dr. Preston in [place] for almost 30 years ([phone]) presented to [place] [place] [facility] with complaints of cough, shortness of breath, and fatigue. He also had a mild fever and chills. The CT of the chest at [place] [place] [place] revealed extensive large cavitary pneumonia, multiple blebs suggestive of likely COPD and bullous emphysema and secondary infected blebs. Initial sputum revealed presumptive Pseudomonas aeruginosa, resistant to Levaquin, sensitive to Zosyn. Patient underwent needle aspiration of one of the cavitary lesions. The procedure was complicated by development of pneumothorax and subcutaneous emphysema with continues air leak. For this the patient is transferred to [facility] for higher level of care and possible CT surgery consultation. 09/17: Remains on partial rebreather. Persistent large air leak noted from right sided chest tube. Complains of chest pain off and on. 09/18 Patient is on partial rebreather with sats 98-100%. Afebrile. Objective Vital Signs Date Time Temp Pulse Resp B/P (MAP) Pulse Ox O2 Delivery O2 Flow Rate FiO2 09/18/17 07:20 98 Partial Rebreather 09/18/17 06:00 74 09/18/17 04:00 98.3 32 114/65 (81) 09/17/17 20:00 12.00 09/16/17 20:35 100 Intake and Output 09/18/17 09/18/17 09/19/17 08:00 16:00 00:00 Intake Total 100 ml Output Total 900 ml Balance -800 ml Result Diagram: 09/18/17 0400 09/18/17 0400 Other Results Laboratory Tests Test 09/17/17 12:50 09/18/17 04:00 C-Reactive Protein 5.40 MG/DL White Blood Count 16.7 TH/MM3 Red Blood Count 3.30 MIL/MM3 Hemoglobin 10.4 GM/DL Hematocrit 30.5 % Mean Corpuscular Volume 92.4 FL Mean Corpuscular Hemoglobin 31.6 PG Mean Corpuscular Hemoglobin Concent 34.2 % Red Cell Distribution Width 13.8 % Platelet Count 360 TH/MM3 Mean Platelet Volume 6.1 FL Neutrophils (%) (Auto) 86.9 % Lymphocytes (%) (Auto) 5.9 % Monocytes (%) (Auto) 7.0 % Eosinophils (%) (Auto) 0.1 % Basophils (%) (Auto) 0.1 % Neutrophils # (Auto) 14.6 TH/MM3 Lymphocytes # (Auto) 1.0 TH/MM3 Monocytes # (Auto) 1.2 TH/MM3 Eosinophils # (Auto) 0.0 TH/MM3 Basophils # (Auto) 0.0 TH/MM3 CBC Comment DIFF FINAL Differential Comment Blood Urea Nitrogen 17 MG/DL Creatinine 0.46 MG/DL Random Glucose 69 MG/DL Total Protein 5.2 GM/DL Albumin 1.5 GM/DL Calcium Level 8.2 MG/DL Alkaline Phosphatase 120 U/L Aspartate Amino Transf (AST/SGOT) 21 U/L Alanine Aminotransferase (ALT/SGPT) 22 U/L Total Bilirubin 0.7 MG/DL Sodium Level 136 MEQ/L Potassium Level 3.5 MEQ/L Chloride Level 101 MEQ/L Carbon Dioxide Level 29.0 MEQ/L Anion Gap 6 MEQ/L Estimat Glomerular Filtration Rate 195 ML/MIN Imaging Last Impressions Chest X-Ray 09/17/17 0000 Signed Impressions: Service Date/Time: August 03:16 - CONCLUSION: 1. Right-sided chest tube in place with moderate right pneumothorax. There is a loculated pneumothorax component projects over the upper lobe and extensive bilateral subcutaneous emphysema. 2. Large masslike opacity in the right midlung. Adam Reis MD Chest CT 09/17/17 0000 Signed Impressions: Service Date/Time: August 21:03 - CONCLUSION: 1. Large cavitary mass measuring 10.3 x 12.9 cm in the right apex which appears parenchymal and is consistent with cavitary lung mass, abscess or secondarily infected. There are additional bilateral subcentimeter cavitary lung nodules. 2. Well-positioned apical right anterior chest tube with moderate residual right-sided inferior hydropneumothorax. Patient may benefit from second inferiorly placed chest tube. 3. Extensive subcutaneous emphysema and pneumomediastinum. Charli Linder MD Objective Remarks GENERAL: Cachectic sick gentleman on facemask partial rebreather SKIN: Warm and dry. HEAD: Normocephalic. EYES: No scleral icterus. No injection or drainage. NECK: Supple, trachea midline. No JVD or lymphadenopathy. CARDIOVASCULAR: Regular rate and rhythm without murmurs, gallops, or rubs. RESPIRATORY: Good air entry bilaterally no wheezing or crackles. Scattered rhonchi bilaterally. Right sided chest tube in place with significant positive air leak GASTROINTESTINAL: Abdomen soft, non-tender, nondistended. MUSCULOSKELETAL: No cyanosis, or edema. BACK: Nontender without obvious deformity. NEURO EXAM: Awake alert oriented 3, nonfocal grossly. A/P Assessment and Plan 1)Resp Insuff 2)Subcutaneous emphysema 3)Cavitary lung mass 4)Right hydro Pneumothorax 5)Pseudomonas pneumonia 6)HIV infection 7)COPD Plan Neuro: Awake and alert Pulm: Continue with oxygen keep sat >92% Bronchodilators CT chest showed Large cavitary mass measuring 10.3 x 12.9 cm in the right apex which appears parenchymal and is consistent with cavitary lung mass , abscess or secondarily infected. There are additional bilateral subcentimeter cavitary lung nodules. Well-positioned apical right anterior chest tube with moderate residual right-sided inferior hydropneumothorax. Extensive subcutaneous emphysema and pneumomediastinum. Pulm, CTS is following, for possible surgery next week ( RUL lobectomy ) CV: Monitor HR and BP keep MAP>65mmHg For 2D echo : Monitor renal function, I/O's, electrolytes replacement per protocol On NS@84ml/hr ID: Continue with abx ( Zosyn)add vanco Monitor for signs of infections ( Fever , WBC) WBC is trending down ID is following, follow up on 09/17- NGTD Check sputum cx, strep pneumonia and Legionella urinary Ag Heme: Monitor CBC Endo: SSI for glycemic control DVT GI prophylaxis - Teds SCDs - Subcutaneous heparin - Pepcid Level 2 Alanna Gore MD Sep 18, 2017 09:28
[2017-09-18] MEDS ORDERED: GLUCAGON 1 MG/ML VIAL OTHER PRN (09:30)
[2017-09-18] MEDS ORDERED: DEXTROSE 50% IN WATER 50 ML VIAL(D50) IV PUSH PRN (09:30)
[2017-09-18] MEDS ORDERED: VANCOMYCIN INJ 1,000 MG in SODIUM CHLOR 0.9% 250 ML INJ 250 ML IV SCH (09:30)
[2017-09-18] MEDS: INSULIN NovoLIN REGULAR SUPPLEMENTAL SCALE SQ SCH ×3 (10:00→20:46)
[2017-09-18] MEDS ORDERED: Vancomycin Consult Pharmacy 1 EA OTHER SCH (10:00)
[2017-09-18] MEDS: SODIUM CHLOR 0.9% 1000 ML INJ 1,000 ML IV SCH ×2 (12:05→21:32)
[2017-09-18] MEDS: ACETAMINOPHEN/HYDROcodone 325 MG/10 MG TAB PO PRN ×2 (12:05→20:23)
--- NOTE | 2017-09-18 12:47 | HHI.IDPN ---
Subjective Subjective Remarks ID X cover for Dr Interiano chart reviewed 47 yo male with HIV ax 20 yrs or so and large cavitary RUL mass diagnosed about 1 month ago He c/o productive cough co odynophagia states his CD4 1200 - on Evotaz+ Descovey His WBC down to 16K On NC O2 feels better He is afebrile, but is hypotensive, not on pressors Antibiotics [facility] Allergies: Coded Allergies: No Known Allergies (Unverified , 09/16/17) Objective . Vital Signs Date Time Temp Pulse Resp B/P (MAP) Pulse Ox O2 Delivery O2 Flow Rate FiO2 09/18/17 11:00 108 09/18/17 11:00 108 30 94/53 (67) 96 09/18/17 10:00 107 09/18/17 10:00 107 36 91/58 (69) 98 09/18/17 09:00 110 33 96/69 (78) 100 09/18/17 09:00 110 09/18/17 08:01 107 37 86/67 (73) 96 09/18/17 08:01 107 09/18/17 08:00 105 09/18/17 08:00 98.1 105 40 99 09/18/17 07:20 98 Partial Rebreather 09/18/17 06:00 74 09/18/17 04:00 98.3 92 32 114/65 (81) 100 09/18/17 04:00 92 09/18/17 02:00 95 09/18/17 00:00 84 09/18/17 00:00 97.9 84 25 111/61 (78) 98 09/17/17 22:00 98 09/17/17 20:00 99 09/17/17 20:00 98 Partial Rebreather 12.00 09/17/17 20:00 97.9 99 28 106/58 (74) 94 09/17/17 18:00 87 09/17/17 17:00 97 09/17/17 16:00 104 32 113/57 (75) 96 09/17/17 16:00 104 09/17/17 16:00 104 09/17/17 14:00 105 . Laboratory Tests Test 09/17/17 03:05 09/18/17 04:00 White Blood Count 30.9 TH/MM3 16.7 TH/MM3 Red Blood Count 3.86 MIL/MM3 3.30 MIL/MM3 Hemoglobin 11.9 GM/DL 10.4 GM/DL Hematocrit 35.1 % 30.5 % Mean Corpuscular Volume 90.8 FL 92.4 FL Mean Corpuscular Hemoglobin 30.9 PG 31.6 PG Mean Corpuscular Hemoglobin Concent 34.0 % 34.2 % Red Cell Distribution Width 13.7 % 13.8 % Platelet Count 413 TH/MM3 360 TH/MM3 Mean Platelet Volume 6.2 FL 6.1 FL Neutrophils (%) (Auto) 92.0 % 86.9 % Lymphocytes (%) (Auto) 3.6 % 5.9 % Monocytes (%) (Auto) 4.2 % 7.0 % Eosinophils (%) (Auto) 0.1 % 0.1 % Basophils (%) (Auto) 0.1 % 0.1 % Neutrophils # (Auto) 28.5 TH/MM3 14.6 TH/MM3 Lymphocytes # (Auto) 1.1 TH/MM3 1.0 TH/MM3 Monocytes # (Auto) 1.3 TH/MM3 1.2 TH/MM3 Eosinophils # (Auto) 0.0 TH/MM3 0.0 TH/MM3 Basophils # (Auto) 0.0 TH/MM3 0.0 TH/MM3 CBC Comment AUTO DIFF DIFF FINAL Differential Total Cells Counted 100 Neutrophils % (Manual) 81 % Band Neutrophils % 16 % Monocytes % 1 % Neutrophils # (Manual) 30.6 TH/MM3 Metamyelocytes 2 % Differential Comment FINAL DIFF MANUAL Toxic Granulation 1+ Platelet Estimate NORMAL Platelet Morphology Comment NORMAL Laboratory Tests Test 09/17/17 03:05 09/17/17 12:50 09/18/17 04:00 Blood Urea Nitrogen 32 MG/DL 17 MG/DL Creatinine 0.55 MG/DL 0.46 MG/DL Random Glucose 87 MG/DL 69 MG/DL Total Protein 5.6 GM/DL 5.2 GM/DL Albumin 1.6 GM/DL 1.5 GM/DL Calcium Level 8.5 MG/DL 8.2 MG/DL Phosphorus Level 2.7 MG/DL Magnesium Level 2.3 MG/DL Alkaline Phosphatase 132 U/L 120 U/L Aspartate Amino Transf (AST/SGOT) 22 U/L 21 U/L Alanine Aminotransferase (ALT/SGPT) 30 U/L 22 U/L Total Bilirubin 3.5 MG/DL 0.7 MG/DL Sodium Level 137 MEQ/L 136 MEQ/L Potassium Level 3.4 MEQ/L 3.5 MEQ/L Chloride Level 101 MEQ/L 101 MEQ/L Carbon Dioxide Level 30.2 MEQ/L 29.0 MEQ/L Anion Gap 6 MEQ/L 6 MEQ/L Estimat Glomerular Filtration Rate 158 ML/MIN 195 ML/MIN Lactic Acid Level 1.0 mmol/L C-Reactive Protein 5.40 MG/DL Microbiology Date/Time Source Procedure Growth Status 09/17/17 00:35 Blood Peripheral Aerobic Blood Culture - Preliminary NO GROWTH IN 1 DAY Resulted 09/17/17 00:35 Blood Peripheral Anaerobic Blood Culture - Preliminary NO GROWTH IN 1 DAY Resulted 09/17/17 00:31 Blood Peripheral Aerobic Blood Culture - Preliminary NO GROWTH IN 1 DAY Resulted 09/17/17 00:31 Blood Peripheral Anaerobic Blood Culture - Preliminary NO GROWTH IN 1 DAY Resulted 09/18/17 11:45 Sputum Expectorated Sputum Gram Stain Pending Received 09/18/17 11:45 Sputum Expectorated Sputum Sputum Culture Pending Received 09/18/17 11:56 Urine Catheterized Urine Legionella Antigen Pending Received 09/18/17 11:56 Urine Catheterized Urine Streptococcus pneumoniae Antigen (M Pending Received Imaging Last Impressions Chest X-Ray 09/17/17 0000 Signed Impressions: Service Date/Time: August 03:16 - CONCLUSION: 1. Right-sided chest tube in place with moderate right pneumothorax. There is a loculated pneumothorax component projects over the upper lobe and extensive bilateral subcutaneous emphysema. 2. Large masslike opacity in the right midlung. Adam Reis MD Chest CT 09/17/17 0000 Signed Impressions: Service Date/Time: August 21:03 - CONCLUSION: 1. Large cavitary mass measuring 10.3 x 12.9 cm in the right apex which appears parenchymal and is consistent with cavitary lung mass, abscess or secondarily infected. There are additional bilateral subcentimeter cavitary lung nodules. 2. Well-positioned apical right anterior chest tube with moderate residual right-sided inferior hydropneumothorax. Patient may benefit from second inferiorly placed chest tube. 3. Extensive subcutaneous emphysema and pneumomediastinum. Charli Linder MD Physical Exam CONSTITUTIONAL/GENERAL: This a thin cachectic patient, in no apparent distress. TUBES/LINES/DRAINS: SKIN: No jaundice, rashes, or lesions. Skin temperature appropriate. Not diaphoretic. HEAD: Atraumatic. Normocephalic. EYES: Pupils equal and round and reactive. Extraocular motions intact. No scleral icterus. No injection or drainage. Fundi not examined. ENT: Hearing grossly normal. Nose without bleeding or purulent drainage. Throat without visible erythema, exudates, masses, or lesions. No thrush NECK: Trachea midline. Supple, nontender. No palpable thyroid enlargement or nodularity. CARDIOVASCULAR: Regular rate and rhythm without murmurs, gallops, or rubs. No JVD. Peripheral pulses symmetric. RESPIRATORY/CHEST: Symmetric, unlabored respirations. Clear to auscultation. Breath sounds amphoric to R apex + RUL rhonchi. + increased egophonic (markedly ) R apex GASTROINTESTINAL: Abdomen soft, non-tender, nondistended. No hepato-splenomegaly , or palpable masses. No guarding. Bowel sounds present. GENITOURINARY: Without palpable bladder distension. MUSCULOSKELETAL: Extremities without clubbing, cyanosis, or edema. No joint tenderness or effusion noted. No calf tenderness. No mottling or clubbing. LYMPHATICS: No palpable cervical or supraclavicular adenopathy. NEUROLOGICAL: Awake and alert. Motor and sensory grossly within normal limits. Follows commands. Clear speech . Moves all extremities. PSYCHIATRIC: No obvious anxiety/depression. no apparent hallucinations or other psychotic thought process. Assessment & Plan Remarks Pseudomonas Pneumonia. Unsure of the timing of the blebs (if these occurred years back as a result of COPD or PCP related Blebs) jl [facility]: he has no bx done there, but has thoracocenthesis with cytology and culture: I requested the report Acute resp failure Pneumothorax : ? post procedure vs spontaneous from bleb leak. HIV on HAART reportedly well controlled with undetectable viral load. High grade leucocytosis (sepsis, ? steroids) Recs: Continue Zosyn IV Sputum culture and gram stain Blood cultures x 2 CT chest with IV contrast At risk for malignancy and infections due to HIV status. 2D ECHO r/o vegetations/endocarditis. Continue HAART per (patient's HIV doctor in [place]) jl pt dw his s/o @ b/s jl RN talked to pathologist tad @ [facility] Follow cultures Follow clinically. jl Camacho agree with plan for lobectomy Thursday Angelique Roche MD Sep 18, 2017 12:47
[2017-09-18] MEDS: VANCOMYCIN INJ 750 MG in SODIUM CHLOR 0.9% 250 ML INJ 250 ML IV SCH ×2 (12:58→20:21)
--- NOTE | 2017-09-18 14:07 | PD.CAR.PN ---
CVT Progress Note Subjective/Hospital Course: A 47-year-old male, history of HIV positive on heart medication HAART for the last 30 years with a doctor in [facility] who apparently is compliant with his medications with an undetectable viral load, CD-4 1200 He was treated recently with Levaquin for outpatient pneumonia. He presented to [facility] on the , found to have cavitary pneumonia and, because of his HIV, they had also found that his CT scan showed an extensive large cavitary pneumonia, multiple blebs suggested of likely COPD, bullous emphysema and secondary infected blebs. The patient underwent needle aspiration of one of the cavitary lesions and it was complicated by development of a large hemothorax and subcutaneous emphysema with continuous air leak. They transferred the patient to our facility for higher care and for cardiovascular surgery consultation. They consulted Infectious Disease for evaluation of Pseudomonas pneumonia in a patient with preexisting blebs. 09/18 pt still has intermittent air leak / now on 4 liter nasal cannula sitting up in bed, still scheduled for tentative surgery on Thursday Objective: GENERAL: A&O x 3 SKIN: Warm and dry. HEAD: Normocephalic. EYES: No scleral icterus. No injection or drainage. NECK: Supple, trachea midline. No JVD or lymphadenopathy. CARDIOVASCULAR: Regular rate and rhythm without murmurs, gallops, or rubs. RESPIRATORY: Breath sounds equal bilaterally. No accessory muscle use. right lateral chest tube to 20cm wall suction + intermittent air leak / + subq emphysema GASTROINTESTINAL: Abdomen soft, non-tender, nondistended. MUSCULOSKELETAL: No cyanosis, or edema. BACK: Nontender without obvious deformity. No CVA tenderness. Vital Signs Date Time Temp Pulse Resp B/P (MAP) Pulse Ox O2 Delivery O2 Flow Rate FiO2 09/18/17 12:00 104 09/18/17 12:00 98.5 104 28 97/63 (74) 96 09/18/17 11:00 108 09/18/17 11:00 108 30 94/53 (67) 96 09/18/17 10:00 107 09/18/17 10:00 107 36 91/58 (69) 98 09/18/17 09:00 110 33 96/69 (78) 100 09/18/17 09:00 110 09/18/17 08:01 107 37 86/67 (73) 96 09/18/17 08:01 107 09/18/17 08:00 105 09/18/17 08:00 98.1 105 40 99 09/18/17 07:20 98 Partial Rebreather 09/18/17 06:00 74 09/18/17 04:00 98.3 92 32 114/65 (81) 100 09/18/17 04:00 92 09/18/17 02:00 95 09/18/17 00:00 84 09/18/17 00:00 97.9 84 25 111/61 (78) 98 09/17/17 22:00 98 09/17/17 20:00 99 09/17/17 20:00 98 Partial Rebreather 12.00 09/17/17 20:00 97.9 99 28 106/58 (74) 94 09/17/17 18:00 87 09/17/17 17:00 97 09/17/17 16:00 104 32 113/57 (75) 96 09/17/17 16:00 104 09/17/17 16:00 104 09/17/17 14:00 105 Labs: Laboratory Tests Test 09/18/17 04:00 White Blood Count 16.7 TH/MM3 (4.0-11.0) Red Blood Count 3.30 MIL/MM3 (4.50-5.90) Hemoglobin 10.4 GM/DL (13.0-17.0) Hematocrit 30.5 % (39.0-51.0) Mean Corpuscular Volume 92.4 FL (80.0-100.0) Mean Corpuscular Hemoglobin 31.6 PG (27.0-34.0) Mean Corpuscular Hemoglobin Concent 34.2 % (32.0-36.0) Red Cell Distribution Width 13.8 % (11.6-17.2) Platelet Count 360 TH/MM3 (150-450) Mean Platelet Volume 6.1 FL (7.0-11.0) Neutrophils (%) (Auto) 86.9 % (16.0-70.0) Lymphocytes (%) (Auto) 5.9 % (9.0-44.0) Monocytes (%) (Auto) 7.0 % (0.0-8.0) Eosinophils (%) (Auto) 0.1 % (0.0-4.0) Basophils (%) (Auto) 0.1 % (0.0-2.0) Neutrophils # (Auto) 14.6 TH/MM3 (1.8-7.7) Lymphocytes # (Auto) 1.0 TH/MM3 (1.0-4.8) Monocytes # (Auto) 1.2 TH/MM3 (0-0.9) Eosinophils # (Auto) 0.0 TH/MM3 (0-0.4) Basophils # (Auto) 0.0 TH/MM3 (0-0.2) CBC Comment DIFF FINAL Differential Comment Blood Urea Nitrogen 17 MG/DL (7-18) Creatinine 0.46 MG/DL (0.60-1.30) Random Glucose 69 MG/DL (74-106) Total Protein 5.2 GM/DL (6.4-8.2) Albumin 1.5 GM/DL (3.4-5.0) Calcium Level 8.2 MG/DL (8.5-10.1) Alkaline Phosphatase 120 U/L (45-117) Aspartate Amino Transf (AST/SGOT) 21 U/L (15-37) Alanine Aminotransferase (ALT/SGPT) 22 U/L (12-78) Total Bilirubin 0.7 MG/DL (0.2-1.0) Sodium Level 136 MEQ/L (136-145) Potassium Level 3.5 MEQ/L (3.5-5.1) Chloride Level 101 MEQ/L (98-107) Carbon Dioxide Level 29.0 MEQ/L (21.0-32.0) Anion Gap 6 MEQ/L (5-15) Estimat Glomerular Filtration Rate 195 ML/MIN (>89) Result Diagram: 09/18/1739909/18/17399 Telemetry: NSR > ST (1) COPD (chronic obstructive pulmonary disease) (2) Cavitary lesion of lung (3) HIV disease (4) Pneumothorax on right Plan: for right thoracotomy right upper lobectomy on 09/21 Rosemary Montes Sep 18, 2017 14:06
[2017-09-18] MEDS ORDERED: Gentamicin Consult Pharmacy 1 EA OTHER SCH (15:30)
--- NOTE | 2017-09-18 16:39 | ECHRPT ---
Indication: endocarditis CONCLUSIONS Normal left ventricular size. The left ventricular systolic function is low normal with an estimated ejection fraction in the rang e of 50- 55%. The pulmonary valve is not well visualized. BP: / HR: Rhythm: MEASUREMENTS (Male / Female) Normal Values Technical Quality:Very technically difficult study 2D ECHO LV Ejection Fraction MOD 4C 53.8 % LV Ejection Fraction 4C AL 56.2 % DOPPLER Mitral E Point Velocity 56.8 cm/s Mitral A Point Velocity 72.1 cm/s Mitral E to A Ratio 0.8 LV E' Lateral Velocity 7.9 cm/s Mitral E to LV E' Lateral Ratio 7.2 LV E' Septal Velocity 5.9 cm/s Mitral E to LV E' Septal Ratio 9.7 TR Peak Velocity 235.0 cm/s TR Peak Gradient 22.1 mmHg Right Atrial Pressure 10.0 mmHg Pulmonary Artery Systolic Pressu 32.1 mmHg Right Ventricular Systolic Press 32.1 mmHg FINDINGS LEFT VENTRICLE Normal left ventricular size. The left ventricular systolic function is low normal with an estimated ejection fraction in the rang e of 50- 55%. RIGHT VENTRICLE Normal right ventricular size and systolic function. LEFT ATRIUM The left atrial size is normal. RIGHT ATRIUM The right atrial size is normal. ATRIAL SEPTUM Normal atrial septal thickness without atrial level shunting by limited color doppler interrogation. AORTA The aortic root and proximal ascending aorta are normal in size on limited imaging. MITRAL VALVE Structurally normal mitral valve. No mitral valve stenosis or regurgitation. AORTIC VALVE Trileaflet aortic valve. No aortic valve stenosis or regurgitation. TRICUSPID VALVE Structurally normal tricuspid valve. No tricuspid valve stenosis or regurgitation. PULMONARY VALVE The pulmonary valve is not well visualized. VESSELS The inferior vena cava is normal in size. PERICARDIUM No pericardial effusion. Celio Bruno MD, FACC (Electronically Signed) Final Date:18 September 2017 16:39
[2017-09-18] MEDS ORDERED: GENTAMICIN INJ 300 MG in SODIUM CHLORIDE 0.9% INJ 100 ML IV ONE (18:00)
--- NOTE | 2017-09-18 18:27 | RADRPT ---
EXAM DATE/TIME: 09/18/2017 18:09 [facility] COMPARISON: CT THORAX W & W/O CONTRAST, September 17, 2017, 21:03. CHEST SINGLE AP, September 17, 2017, 3:16. INDICATIONS : Follow up pneumothorax MEDICAL HISTORY : None. SURGICAL HISTORY : None. ENCOUNTER: Initial ACUITY: 1 day PAIN SCORE: 10/10 LOCATION: Right chest FINDINGS: Large cavitary mass in the right lung apex. Stable right base pneumothorax. Right thoracostomy tube r emains stable in position. Left lung remains clear. Extensive subcutaneous emphysema bilaterally. Car diac contours are grossly stable. CONCLUSION: No significant change Kosta Frias MD on September 18, 2017 at 18:24 Board Certified Radiologist. This report was verified electronically.
[2017-09-18] MEDS: TEMAZEPAM 15 MG CAP PO PRN (21:31)
--- NOTE | 2017-09-18 22:08 | HHI.PR ---
Addendum to Inpatient Note Additional Information otes from [facility] obtained on fluid: benign cytology PSAE I cefepime R leva S zosymacey, doug blake [employer] stain/fungal stain neg cont zosyn; add tob fluc Angelique Roche MD Sep 18, 2017 22:08
[2017-09-19] VITALS (14 sets, daily range): BP systolic 97–122; BP diastolic 58–75; PULSE 65–122; RESP 17–31; TEMP 98.3–98.6; O2SAT 94–100
[2017-09-19] MEDS: INSULIN NovoLIN REGULAR SUPPLEMENTAL SCALE SQ SCH ×4 (03:54→22:00)
[2017-09-19] MEDS: PIPERACIL-TAZO 4.5 GM PREMIX 100 ML IV SCH ×4 (03:55→22:18)
[2017-09-19] MEDS: CHLORHEXIDINE GLUCONATE 2 % 1 PACK (2 CLOTHS) TOP SCH (03:55)
[2017-09-19] MEDS: VANCOMYCIN INJ 750 MG in SODIUM CHLOR 0.9% 250 ML INJ 250 ML IV SCH ×2 (03:55→13:42)
[2017-09-19] MEDS: HEPARIN SODIUM - SQ 10,000 UNITS/ML VIAL SQ SCH ×3 (04:14→22:16)
[2017-09-19 04:40] LABS: AUTOMATED NEUTROPHIL # 15.6 TH/MM3 (1.8-7.7); BASOPHIL % 0.1 % (0.0-2.0); EOSINOPHIL % 0.1 % (0.0-4.0); HEMATOCRIT 37.3 % (39.0-51.0); HEMOGLOBIN 12.3 GM/DL (13.0-17.0); LYMPH % 4.9 % (9.0-44.0); LYMPHOCYTE # 0.9 TH/MM3 (1.0-4.8); MEAN CELL VOLUME 93.5 FL (80.0-100.0); MEAN CORPUSCULAR HEMOGLOBIN 30.9 PG (27.0-34.0); MEAN CORPUSCULAR HGB CONC 33.1 % (32.0-36.0); MEAN PLATELET VOLUME 6.5 FL (7.0-11.0); MONO % 5.6 % (0.0-8.0); NEUT % 89.3 % (16.0-70.0); PLATELET COUNT 300 TH/MM3 (150-450); RED BLOOD COUNT 3.99 MIL/MM3 (4.50-5.90); RED CELL DISTRIBUTION WIDTH 14.1 % (11.6-17.2); WHITE BLOOD COUNT 17.5 TH/MM3 (4.0-11.0)
[2017-09-19 05:01] LABS: BICARBONATE 22.9 MEQ/L (21.0-32.0); CALCIUM 8.2 MG/DL (8.5-10.1); CREATININE 0.42 MG/DL (0.60-1.30); MAGNESIUM 1.9 MG/DL (1.5-2.5); PHOSPHORUS 1.6 MG/DL (2.5-4.9); RANDOM GENTAMICIN 2.2 MCG/ML
[2017-09-19] MEDS: HYDROmorphone HCL PF 2 MG/ML VIAL IV PRN ×4 (05:33→19:48)
[2017-09-19] MEDS: RESP: ALBUTEROL 2.5 MG/IPRATROPIUM 0.5 MG NEB (SCH) INH ×3 (07:22→18:58)
[2017-09-19] MEDS: FAMOTIDINE 20 MG/2 ML VIAL IV PUSH SCH ×2 (08:13→22:17)
[2017-09-19] MEDS: ACETAMINOPHEN/HYDROcodone 325 MG/10 MG TAB PO PRN ×4 (08:13→22:16)
[2017-09-19] MEDS: FLUCONAZOLE 200 MG TAB PO SCH (08:14)
[2017-09-19] MEDS: PRAVASTATIN SOD 40 MG TAB PO SCH (08:14)
[2017-09-19] MEDS: DOCUSATE SODIUM 50 MG/SENNA 8.6 MG TAB PO SCH ×2 (08:14→21:00)
[2017-09-19] MEDS: DESCOVY PO SCH (08:16)
[2017-09-19] MEDS: EVOTAZ PO SCH (08:22)
[2017-09-19] MEDS: SODIUM CHLORIDE 0.9% FLUSH 10 ML FLUSH IV FLUSH SCH ×2 (08:25→22:17)
--- NOTE | 2017-09-19 08:50 | RADRPT ---
EXAM DATE/TIME: 09/19/2017 08:12 [facility] COMPARISON: CT THORAX W & W/O CONTRAST, September 17, 2017, 21:03. CHEST SINGLE AP, September 18, 2017, 18:09. INDICATIONS : Pneumonia. MEDICAL HISTORY : None. SURGICAL HISTORY : None. ENCOUNTER: Subsequent ACUITY: 1 day PAIN SCORE: 4/10 LOCATION: Bilateral chest FINDINGS: There continues to be a large cavitary mass in the right upper lung. The inferior aspect of this has soft tissue density. The superior aspect has air. There is a right-sided chest tube in place. A p neumothorax is not seen on this chest x-ray. There is extensive subcutaneous emphysema seen. There is some minimal suspected atelectasis at the right lung base. There is blunting of the right costoph renic angle likely secondary to mild effusion on the right side. The left lung appears grossly clear . The heart size is normal. The trachea is deviated to the left potentially secondary to the large cavitary mass. There is an anterior cervical fusion plate present. CONCLUSION: 1. Large cavitary mass with associated soft tissue density occupying much of the right upper lung. This appears to cause some displacement of the trachea at the level of the thoracic inlet towards the left. 2. Right chest tube without a pneumothorax seen on this plain film examination. There continues to be extensive subcutaneous emphysema. 3. Mild right pleural effusion. Kosta Jones MD on September 19, 2017 at 8:37 Board Certified Radiologist. This report was verified electronically.
[2017-09-19] MEDS: SODIUM CHLOR 0.9% 1000 ML INJ 1,000 ML IV SCH (10:17)
[2017-09-19] MEDS ORDERED: PHARMACY ORDERED LAB ONE (11:45)
[2017-09-19] MEDS ORDERED: ICU - POTASSIUM PHOSPHATE 30 MMOL/NS 250 ML IV PRN ×2 (14:30)
[2017-09-19] MEDS ORDERED: POTASSIUM CHLORIDE 25 MEQ EFFERVESCENT TAB PO PRN (14:30)
[2017-09-19] MEDS ORDERED: ICU - MAGNESIUM SULFATE 2 GM/NS 100 ML IV PRN ×2 (14:30)
[2017-09-19] MEDS ORDERED: ICU - SODIUM PHOSPHATE 30 MMOL/NS 250 ML IV PRN ×2 (14:30)
[2017-09-19] MEDS ORDERED: ICU - D/C ICU ELECTROLYTE ORDERS PRN (14:30)
[2017-09-19] MEDS ORDERED: ICU - MAGNESIUM OXIDE 400 MG TAB PO PRN (14:30)
[2017-09-19] MEDS ORDERED: ICU - POTASSIUM CHLORIDE/AQUEOUS SOLN 20 MEQ/100 ML IVPB IV PRN (14:30)
[2017-09-19] MEDS ORDERED: ICU - MAGNESIUM SULFATE 4 GM/NS 100 ML IV PRN ×2 (14:30)
[2017-09-19] MEDS ORDERED: ICU - CALL ORDERING PHYSICIAN PRN (14:30)
[2017-09-19] MEDS ORDERED: ICU - POTASSIUM PHOSPHATE MONOBASIC 500 MG TAB PO PRN (14:30)
[2017-09-19] MEDS ORDERED: ICU - POTASSIUM CHLORIDE/AQUEOUS SOLN 40 MEQ/100 ML IVPB IV PRN (14:30)
[2017-09-19] MEDS: GENTAMICIN INJ 300 MG in SODIUM CHLORIDE 0.9% INJ 100 ML IV SCH (17:17)
--- NOTE | 2017-09-19 18:22 | HHI.IDPN ---
Subjective Subjective Remarks ID X cover for Dr Interiano doing better On RA co chest pain His WBC up to 17K feels better He is afebrile, BP better growing PSAE and staph from sputum clx Antibiotics vanco zosyn Allergies: Coded Allergies: No Known Allergies (Unverified , 09/16/17) Objective . Vital Signs Date Time Temp Pulse Resp B/P (MAP) Pulse Ox O2 Delivery O2 Flow Rate FiO2 09/19/17 16:00 98.6 94 17 104/75 (85) 97 09/19/17 16:00 108 09/19/17 14:00 108 09/19/17 12:00 98.3 100 18 121/66 (84) 100 09/19/17 12:00 97 09/19/17 10:00 92 09/19/17 08:00 98.4 104 18 97/58 (71) 99 09/19/17 08:00 104 09/19/17 07:27 94 Aerosol Mask 7.00 09/19/17 06:00 88 09/19/17 04:00 98.6 65 20 101/65 (77) 99 09/19/17 04:00 65 09/19/17 02:00 91 09/19/17 00:00 102 09/19/17 00:00 95 31 106/58 (74) 97 09/18/17 22:00 101 09/18/17 20:00 98.2 113 28 109/61 (77) 100 09/18/17 20:00 113 09/18/17 19:45 100 Venturi Mask 6.00 50 09/18/17 19:00 106 09/19/17 09/19/17 09/20/17 15:00 23:00 07:00 Intake Total 100 ml Balance 100 ml IV Total 100 ml . Laboratory Tests Test 09/18/17 04:00 09/19/17 03:55 White Blood Count 16.7 TH/MM3 17.5 TH/MM3 Red Blood Count 3.30 MIL/MM3 3.99 MIL/MM3 Hemoglobin 10.4 GM/DL 12.3 GM/DL Hematocrit 30.5 % 37.3 % Mean Corpuscular Volume 92.4 FL 93.5 FL Mean Corpuscular Hemoglobin 31.6 PG 30.9 PG Mean Corpuscular Hemoglobin Concent 34.2 % 33.1 % Red Cell Distribution Width 13.8 % 14.1 % Platelet Count 360 TH/MM3 300 TH/MM3 Mean Platelet Volume 6.1 FL 6.5 FL Neutrophils (%) (Auto) 86.9 % 89.3 % Lymphocytes (%) (Auto) 5.9 % 4.9 % Monocytes (%) (Auto) 7.0 % 5.6 % Eosinophils (%) (Auto) 0.1 % 0.1 % Basophils (%) (Auto) 0.1 % 0.1 % Neutrophils # (Auto) 14.6 TH/MM3 15.6 TH/MM3 Lymphocytes # (Auto) 1.0 TH/MM3 0.9 TH/MM3 Monocytes # (Auto) 1.2 TH/MM3 1.0 TH/MM3 Eosinophils # (Auto) 0.0 TH/MM3 0.0 TH/MM3 Basophils # (Auto) 0.0 TH/MM3 0.0 TH/MM3 CBC Comment DIFF FINAL DIFF FINAL Differential Comment Laboratory Tests Test 09/18/17 04:00 09/19/17 03:55 Blood Urea Nitrogen 17 MG/DL 13 MG/DL Creatinine 0.46 MG/DL 0.42 MG/DL Random Glucose 69 MG/DL 51 MG/DL Total Protein 5.2 GM/DL Albumin 1.5 GM/DL Calcium Level 8.2 MG/DL 8.2 MG/DL Alkaline Phosphatase 120 U/L Aspartate Amino Transf (AST/SGOT) 21 U/L Alanine Aminotransferase (ALT/SGPT) 22 U/L Total Bilirubin 0.7 MG/DL Sodium Level 136 MEQ/L 135 MEQ/L Potassium Level 3.5 MEQ/L 2.9 MEQ/L Chloride Level 101 MEQ/L 104 MEQ/L Carbon Dioxide Level 29.0 MEQ/L 22.9 MEQ/L Anion Gap 6 MEQ/L 8 MEQ/L Estimat Glomerular Filtration Rate 195 ML/MIN 216 ML/MIN Phosphorus Level 1.6 MG/DL Magnesium Level 1.9 MG/DL Microbiology Date/Time Source Procedure Growth Status 09/17/17 00:35 Blood Peripheral Aerobic Blood Culture - Preliminary NO GROWTH IN 2 DAYS Resulted 09/17/17 00:35 Blood Peripheral Anaerobic Blood Culture - Preliminary NO GROWTH IN 2 DAYS Resulted 09/17/17 00:31 Blood Peripheral Aerobic Blood Culture - Preliminary NO GROWTH IN 2 DAYS Resulted 09/17/17 00:31 Blood Peripheral Anaerobic Blood Culture - Preliminary NO GROWTH IN 2 DAYS Resulted 09/18/17 11:45 Sputum Expectorated Sputum Gram Stain - Final Resulted 09/18/17 11:45 Sputum Culture - Preliminary Pseudomonas Species Staphylococcus Species Resulted 09/18/17 11:56 Urine Catheterized Urine Legionella Antigen - Final PRESUMPTIVE NEGATIVE FOR LEGIONELLA P... Complete 09/18/17 11:56 Urine Catheterized Urine Streptococcus pneumoniae Antigen (M - Final PRESUMPTIVE NEGATIVE FOR STREPTOCOCCU... Complete Imaging Last Impressions Chest X-Ray 09/19/17 0600 Signed Impressions: Service Date/Time: Tuesday, September 19, 2017 08:12 - CONCLUSION: 1. Large cavitary mass with associated soft tissue density occupying much of the right upper lung. This appears to cause some displacement of the trachea at the level of the thoracic inlet towards the left. 2. Right chest tube without a pneumothorax seen on this plain film examination. There continues to be extensive subcutaneous emphysema. 3. Mild right pleural effusion. Kosta Jones MD Chest CT 09/17/17 0000 Signed Impressions: Service Date/Time: August 21:03 - CONCLUSION: 1. Large cavitary mass measuring 10.3 x 12.9 cm in the right apex which appears parenchymal and is consistent with cavitary lung mass, abscess or secondarily infected. There are additional bilateral subcentimeter cavitary lung nodules. 2. Well-positioned apical right anterior chest tube with moderate residual right-sided inferior hydropneumothorax. Patient may benefit from second inferiorly placed chest tube. 3. Extensive subcutaneous emphysema and pneumomediastinum. Charli Linder MD Physical Exam CONSTITUTIONAL/GENERAL: This a thin cachectic patient, in no apparent distress. TUBES/LINES/DRAINS: SKIN: No jaundice, rashes, or lesions. Skin temperature appropriate. Not diaphoretic. EYES: Pupils equal and round and reactive. Extraocular motions intact. No scleral icterus. No injection or drainage. Fundi not examined. ENT: Hearing grossly normal. Nose without bleeding or purulent drainage. Throat without visible erythema, exudates, masses, or lesions. No thrush NECK: Trachea midline. Supple, nontender. No palpable thyroid enlargement or nodularity. CARDIOVASCULAR: Regular rate and rhythm without murmurs, gallops, or rubs. No JVD. Peripheral pulses symmetric. RESPIRATORY/CHEST: Symmetric, unlabored respirations. Clear to auscultation. Breath sounds amphoric to R apex + RUL rhonchi. + increased egophonic (markedly ) R apex CT in place R chest with serous drainage GASTROINTESTINAL: Abdomen soft, non-tender, nondistended. No hepato-splenomegaly , or palpable masses. No guarding. Bowel sounds present. GENITOURINARY: Without palpable bladder distension. MUSCULOSKELETAL: Extremities without clubbing, cyanosis, or edema. No joint tenderness or effusion noted. No calf tenderness. No mottling or clubbing. LYMPHATICS: No palpable cervical or supraclavicular adenopathy. NEUROLOGICAL: Awake and alert. Motor and sensory grossly within normal limits. Follows commands. Clear speech . Moves all extremities. PSYCHIATRIC: No obvious anxiety/depression. no apparent hallucinations or other psychotic thought process. Assessment & Plan Remarks Pseudomonas Pneumonia. Now also growing staph Unsure of the timing of the blebs (if these occurred years back as a result of COPD or PCP related Blebs) [facility]: he has no bx done there, but has thoracocenthesis with cytology and culture: I requested the report Acute resp failure Pneumothorax : ? post procedure vs spontaneous from bleb leak. HIV on HAART reportedly well controlled with undetectable viral load. High grade leucocytosis (sepsis, ? steroids) Recs: Continue Zosyn IV, gent and cont vanco (restarted) MOnitor GFR really closely Drop gentamycin once S are available on PSAE fu sputum culture fu Blood cultures x 2 2D ECHO r/o vegetations/endocarditis. Continue HAART per (patient's HIV doctor in [place]) plan for lobectomy Thursday Angelique Roche MD Sep 19, 2017 18:22
[2017-09-19] MEDS: VANCOMYCIN 1,000 MG/NS 250 ML IV SCH ×2 (19:49)
--- NOTE | 2017-09-19 21:15 | HHI.CCPN ---
Subjective Remarks/Hospital Course 09/16: 47-year-old very pleasant gentleman with past medical history of HIV on HAART meds at home, compliant with medications and followed by Dr. Preston in [place] for almost 30 years ([phone]) presented to [facility] with complaints of cough, shortness of breath, and fatigue. He also had a mild fever and chills. The CT of the chest at [facility] revealed extensive large cavitary pneumonia, multiple blebs suggestive of likely COPD and bullous emphysema and secondary infected blebs. Initial sputum revealed presumptive Pseudomonas aeruginosa, resistant to Levaquin, sensitive to Zosyn. Patient underwent needle aspiration of one of the cavitary lesions. The procedure was complicated by development of pneumothorax and subcutaneous emphysema with continues air leak. For this the patient is transferred to [facility] for higher level of care and possible CT surgery consultation. 09/17: Remains on partial rebreather. Persistent large air leak noted from right sided chest tube. Complains of chest pain off and on. 09/18 Patient is on partial rebreather with sats 98-100%. Afebrile. Subjective: 09/19. Complains of cough with sputum production and states he remains sitting upright because dyspneic when flat. On NC. Intermittent air leak persists with R sided chest tube. Some pain at chest tube site. States he was hallucinating after Restoril and never wants to take that again. Objective Vital Signs Date Time Temp Pulse Resp B/P (MAP) Pulse Ox O2 Delivery O2 Flow Rate FiO2 09/19/17 19:45 16 09/19/17 18:58 99 Nasal Cannula 09/19/17 18:00 102 09/19/17 16:00 98.6 104/75 (85) 09/19/17 07:27 7.00 09/18/17 19:45 50 Intake and Output 09/19/17 09/19/17 09/20/17 08:00 16:00 00:00 Intake Total 465.0 ml 100 ml 960 ml Output Total 800 ml 1207 ml Balance -335.0 ml 100 ml -247 ml Result Diagram: 09/19/17 0355 09/19/17 0355 Other Results Microbiology Date/Time Source Procedure Growth Status 09/18/17 11:56 Urine Catheterized Urine Legionella Antigen - Final PRESUMPTIVE NEGATIVE FOR LEGIONELLA P... Complete 09/18/17 11:56 Urine Catheterized Urine Streptococcus pneumoniae Antigen (M - Final PRESUMPTIVE NEGATIVE FOR STREPTOCOCCU... Complete Imaging Last Impressions Chest X-Ray 09/17/17 0000 Signed Impressions: Service Date/Time: August 03:16 - CONCLUSION: 1. Right-sided chest tube in place with moderate right pneumothorax. There is a loculated pneumothorax component projects over the upper lobe and extensive bilateral subcutaneous emphysema. 2. Large masslike opacity in the right midlung. Adam Reis MD Chest CT 09/17/17 0000 Signed Impressions: Service Date/Time: August 21:03 - CONCLUSION: 1. Large cavitary mass measuring 10.3 x 12.9 cm in the right apex which appears parenchymal and is consistent with cavitary lung mass, abscess or secondarily infected. There are additional bilateral subcentimeter cavitary lung nodules. 2. Well-positioned apical right anterior chest tube with moderate residual right-sided inferior hydropneumothorax. Patient may benefit from second inferiorly placed chest tube. 3. Extensive subcutaneous emphysema and pneumomediastinum. Charli Linder MD Objective Remarks GENERAL: Cachectic Ill appearing gentleman who is sitting up in [facility] bed, currently on NC. Very talkative. SKIN: Warm and dry, adequately perfused. HEAD: Normocephalic. EYES: No scleral icterus. No injection or drainage. NECK: Supple, trachea midline. No JVD or lymphadenopathy. CARDIOVASCULAR: Regular rate and rhythm without murmurs, gallops, or rubs appreciated. RESPIRATORY: Breath sounds more distant on right mid lung field with rhonchi RUL. No wheeze or rales. Subcut emphysema present supraclavicular and upper anterior chest wall bilaterally. Right sided chest tube in place -20 cm suction with 3+ air leak with cough, minimal serosanguineous fluid in chamber. GASTROINTESTINAL: Abdomen soft, non-tender, scaphoid, bowel sounds present. MUSCULOSKELETAL: No cyanosis, or edema. NEURO EXAM: Awake alert oriented 3, moves all extremities spontaneously without apparent focal deficit. A/P Assessment and Plan Plan Neuro: Pain secondary to chest tube Awake and alert Hydrocodone 10 q4 hours prn pain 3-10. Dilaudid 1 mg IV every 4 hours as needed for breakthrough pain 6-10 Patient reports hallucinations after Restoril. Discontinued per his request. Pulm: Hypoxia with respiratory insufficiency secondary to: Cavitary lung mass Right hydro Pneumothorax following CT guided needle aspirate of RUL at outside facility 09/14/17. Per procedure note at outside hospital 6 mLs of thick aspirate was obtained and sent to lab for analysis. Chest tube placed OSH ( [facility]) for iatrogenic PTX 09/13 Subcutaneous emphysema Pseudomonas pneumonia COPD tobacco abuse Continue with oxygen keep sat >92% Bronchodilators CT chest showed Large cavitary mass measuring 10.3 x 12.9 cm in the right apex which appears parenchymal and is consistent with cavitary lung mass , abscess or secondarily infected. There are additional bilateral subcentimeter cavitary lung nodules. Well-positioned apical right anterior chest tube with moderate residual right-sided inferior hydropneumothorax. Extensive subcutaneous emphysema and pneumomediastinum. Pulmonology (Dr. Gregg Minor) and CTS (Dr. Camacho) following. Plan for R thoracotomy and right upper lobectomy 09/21/1709/14 - Path report from [facility] states " right lung abscess fluid for cytologic exam with smear and cellblock: Abscess contents, negative for malignant cells" CV: Hyperlipidemia Monitor HR and BP keep MAP>65mmHg 2D echo 09/18/17 - ejection fraction 50-55%. Normal RV function. No vegetations. Home statin converted to pravastatin 40 g by mouth daily. LFTs okay. FEN/RENAL: Chronic severe protein energy malnutrition Mild hyponatremia Hypokalemia Hypophosphatemia Monitor renal function, I/O's, electrolytes replacement per protocol On NS@84ml/hr -->Discontinue. Taking po well, voiding. Monitor creatinine, on nephrotoxic antimicrobials. ID: HIV Sepsis Cavitary lung mass/abscess Pseudomonas/staph pneumonia Leukocytosis ID has continued HAART regimen per Dr. Preston (patient's HIV/ID physician in [facility] [place]). Patient taking on meds Emtricitabine 200/Tenoforvir 25 daily, Evotaz 300/150 po daily. Antibiotics per ID, Dr. Roche: Vancomycin 09/19 #1 gentamicin 09/18# fluconazole 200 mg by mouth daily 09/19 (for dysphagia with ?jaci esophagitis per Records at [facility], consider EGD when resp status stabilized), Zosyn 09/17 #3 From [facility]: Gram stain oral fluid: Few gram-negative bacilli, many white blood cells on final report. Right lung abscess deep culture with Pseudomonas sensitive to gentamicin and tobramycin. States sensitive to zosyn... BUCK abscess fluid 64? defer to ID. AFB and fungal smear negative, culture pending. Microbiology: Blood culture 09/17- no growth today Sputum culture 09/18 Pseudomonas and Heavy growth Staphylococcus Urine Legionella and pneumococcal antigen -09/18 Heme: Monitor CBC Endo: Bedside glucose every 6 hours with low-dose sliding scale as indicated DVT GI prophylaxis SCDs/ heparin 5000 subcutaneous every 8 hours - Pepcid for stress ulcer prophylaxis ACCESS: PIV Patient with large cavitary mass, pneumothorax, persistent significant subcutaneous emphysema and pneumomediastinum, tracheal deviation. He is on nasal cannula, however respiratory status remains tenuous. Chest tube with persistent air leak and patient with poor respiratory reserve so would not tolerate situation if he decompensated on the floor. Should remain in ICU. I have updated patient and his partner at bedside. They seem to have poor insight despite attempts at explanation. Continue ongoing patient education. Level 3 Anca Hou MD Sep 19, 2017 21:15
[2017-09-20] VITALS (14 sets, daily range): BP systolic 113–116; BP diastolic 62–72; PULSE 64–112; RESP 18–24; TEMP 97.7–98.6; O2SAT 95–100
[2017-09-20] MEDS: HYDROmorphone HCL PF 2 MG/ML VIAL IV PRN ×6 (00:07→20:31)
[2017-09-20] MEDS: ACETAMINOPHEN/HYDROcodone 325 MG/10 MG TAB PO PRN ×6 (02:00→22:35)
[2017-09-20] MEDS: INSULIN NovoLIN REGULAR SUPPLEMENTAL SCALE SQ SCH ×4 (04:00→21:00)
[2017-09-20] MEDS: CHLORHEXIDINE GLUCONATE 2 % 1 PACK (2 CLOTHS) TOP SCH (04:00)
[2017-09-20] MEDS: VANCOMYCIN 1,000 MG/NS 250 ML IV SCH ×6 (04:17→20:29)
[2017-09-20] MEDS: HEPARIN SODIUM - SQ 10,000 UNITS/ML VIAL SQ SCH ×4 (05:58→22:25)
[2017-09-20] MEDS: PIPERACIL-TAZO 4.5 GM PREMIX 100 ML IV SCH ×4 (05:58→22:35)
[2017-09-20] MEDS: RESP: ALBUTEROL 2.5 MG/IPRATROPIUM 0.5 MG NEB (SCH) INH ×3 (07:24→20:34)
[2017-09-20] MEDS: DESCOVY PO SCH (08:27)
[2017-09-20] MEDS: EVOTAZ PO SCH (08:27)
[2017-09-20] MEDS: PRAVASTATIN SOD 40 MG TAB PO SCH (08:28)
[2017-09-20] MEDS: DOCUSATE SODIUM 50 MG/SENNA 8.6 MG TAB PO SCH ×2 (08:28→20:30)
[2017-09-20] MEDS: SODIUM CHLORIDE 0.9% FLUSH 10 ML FLUSH IV FLUSH SCH ×2 (08:28→20:30)
[2017-09-20] MEDS: FAMOTIDINE 20 MG/2 ML VIAL IV PUSH SCH (08:28)
[2017-09-20] MEDS: FLUCONAZOLE 200 MG TAB PO SCH (08:28)
[2017-09-20] MEDS ORDERED: PHARMACY ORDERED LAB ONE (11:45)
[2017-09-20 13:41] LABS: ALBUMIN 1.6 GM/DL (3.4-5.0); ALKALINE PHOSPHATASE 128 U/L (45-117); ALT (GPT) 30 U/L (12-78); AST (GOT) 18 U/L (15-37); BICARBONATE 28.1 MEQ/L (21.0-32.0); BLOOD UREA NITROGEN 12 MG/DL (7-18); CALCIUM 8.5 MG/DL (8.5-10.1); CHLORIDE 98 MEQ/L (98-107); GLOMERULAR FILTRATION RATE 229 ML/MIN (>89); GLUCOSE,RANDOM 65 MG/DL (74-106); PHOSPHORUS 1.9 MG/DL (2.5-4.9); SODIUM (NA) 134 MEQ/L (136-145); TOTAL BILIRUBIN ADULT 0.7 MG/DL (0.2-1.0); TOTAL PROTEIN 5.6 GM/DL (6.4-8.2)
--- NOTE | 2017-09-20 16:18 | HHI.CCPN ---
Subjective Remarks/Hospital Course 09/16: 47-year-old very pleasant gentleman with past medical history of HIV on HAART meds at home, compliant with medications and followed by Dr. Preston in [place] for almost 30 years ([phone]) presented to [facility] with complaints of cough, shortness of breath, and fatigue. He also had a mild fever and chills. The CT of the chest at [facility] revealed extensive large cavitary pneumonia, multiple blebs suggestive of likely COPD and bullous emphysema and secondary infected blebs. Initial sputum revealed presumptive Pseudomonas aeruginosa, resistant to Levaquin, sensitive to Zosyn. Patient underwent needle aspiration of one of the cavitary lesions. The procedure was complicated by development of pneumothorax and subcutaneous emphysema with continues air leak. For this the patient is transferred to [facility] for higher level of care and possible CT surgery consultation. 09/17: Remains on partial rebreather. Persistent large air leak noted from right sided chest tube. Complains of chest pain off and on. 09/18 Patient is on partial rebreather with sats 98-100%. Afebrile. 09/19. Complains of cough with sputum production and states he remains sitting upright because dyspneic when flat. On NC. Intermittent air leak persists with R sided chest tube. Some pain at chest tube site. States he was hallucinating after Restoril and never wants to take that again. Subjective 09/20: Requesting viscous lidocaine for scratchy throat. Plan for lobectomy tomorrow 09/21. Requesting general diet. Positive BM 3. Positive air leak right-sided chest tube. Chest x-ray ordered for a.m. 09/21. Objective Vital Signs Date Time Temp Pulse Resp B/P (MAP) Pulse Ox O2 Delivery O2 Flow Rate FiO2 09/20/17 14:00 91 09/20/17 12:00 97.8 19 113/63 (80) 100 09/20/17 07:24 Nasal Cannula 6.00 09/18/17 19:45 50 Intake and Output 09/20/17 09/20/17 09/21/17 08:00 16:00 00:00 Intake Total 960 ml Output Total 1550 ml Balance -590 ml Result Diagram: 09/19/17 0355 09/20/17 1117 Other Results Microbiology Date/Time Source Procedure Growth Status 09/17/17 00:35 Blood Peripheral Aerobic Blood Culture - Preliminary NO GROWTH IN 3 DAYS Resulted 09/17/17 00:35 Blood Peripheral Anaerobic Blood Culture - Preliminary NO GROWTH IN 3 DAYS Resulted 09/18/17 11:45 Sputum Expectorated Sputum Gram Stain - Final Complete 09/18/17 11:45 Sputum Culture - Final Pseudomonas Aeruginosa Multi-Drug Resistant S. Aureus Mrsa Complete 09/18/17 11:56 Urine Catheterized Urine Legionella Antigen - Final PRESUMPTIVE NEGATIVE FOR LEGIONELLA P... Complete 09/18/17 11:56 Urine Catheterized Urine Streptococcus pneumoniae Antigen (M - Final PRESUMPTIVE NEGATIVE FOR STREPTOCOCCU... Complete Imaging Last Impressions Chest X-Ray 09/19/17 0600 Signed Impressions: Service Date/Time: Tuesday, September 19, 2017 08:12 - CONCLUSION: 1. Large cavitary mass with associated soft tissue density occupying much of the right upper lung. This appears to cause some displacement of the trachea at the level of the thoracic inlet towards the left. 2. Right chest tube without a pneumothorax seen on this plain film examination. There continues to be extensive subcutaneous emphysema. 3. Mild right pleural effusion. Kosta Jones MD Chest CT 09/17/17 0000 Signed Impressions: Service Date/Time: August 21:03 - CONCLUSION: 1. Large cavitary mass measuring 10.3 x 12.9 cm in the right apex which appears parenchymal and is consistent with cavitary lung mass, abscess or secondarily infected. There are additional bilateral subcentimeter cavitary lung nodules. 2. Well-positioned apical right anterior chest tube with moderate residual right-sided inferior hydropneumothorax. Patient may benefit from second inferiorly placed chest tube. 3. Extensive subcutaneous emphysema and pneumomediastinum. Charli Linder MD Objective Remarks GENERAL: 47-year-old male resting in bed in no acute distress SKIN: Warm and dry, adequately perfused. HEAD: Normocephalic. EYES: No scleral icterus. No injection or drainage. NECK: Supple, trachea midline. No JVD or lymphadenopathy. CARDIOVASCULAR: RRR. S1, S2 no S4. Without murmurs clicks, rubs RESPIRATORY: Breath sounds more distant on right mid lung field with rhonchi RUL. No wheeze or rales. He needs emphysema present right anterior chest wall bilaterally. Right sided chest tube in place -20 cm suction with 2-3+ air leak with cough, minimal serosanguineous fluid in chamber. 7 cc past 24 hours GASTROINTESTINAL: Abdomen soft, non-tender, scaphoid, bowel sounds present. MUSCULOSKELETAL: No significant peripheral edema. NEURO EXAM: Awake alert oriented 3, cranial nerves II through XII grossly intact. Moves all extremities spontaneously without apparent focal deficit. A/P Assessment and Plan Neuro/Psych: Pain secondary to chest tube Acetaminophen 650 mg by mouth every 6 hours when necessary fever/pain 1-2 Hydrocodone/acetaminophen 10/325 one tablet q4 hours prn pain 3-10. Hydromorphone 1 mg IV every 4 hours as needed for breakthrough pain Patient reports hallucinations after Restoril. Discontinued per his request. Pulm: Hypoxia with respiratory insufficiency secondary to: Right upper lobe Cavitary lung mass Right hydro Pneumothorax following CT guided needle aspirate of RUL at outside facility 09/14/17. Per procedure note at outside hospital 6 mLs of thick aspirate was obtained and sent to lab for analysis. Chest tube placed OSH ( [facility]) for iatrogenic PTX 09/13 Subcutaneous emphysema Pseudomonas pneumonia MDRO and MRSA pneumonia COPD Ongoing tobaccoism Continue with oxygen is a cannula keep sat >92% Albuterol/ipratropium aerosols every 8 hours with albuterol aerosols every 2 hours as needed Dyspnea CT chest showed Large cavitary mass measuring 10.3 x 12.9 cm in the right apex which appears parenchymal and is consistent with cavitary lung mass , abscess or secondarily infected. There are additional bilateral subcentimeter cavitary lung nodules. Well-positioned apical right anterior chest tube with moderate residual right-sided inferior hydropneumothorax. Extensive subcutaneous emphysema and pneumomediastinum. Pulmonology (Dr. Gregg Minor) and CTS (Dr. Camacho) following. Plan for R thoracotomy and right upper lobectomy 09/21/1709/14 - Path report from [facility] states " right lung abscess fluid for cytologic exam with smear and cellblock: Abscess contents, negative for malignant cells" Self-examination cessation booklet will be provided for tobacco cessation CV: Hyperlipidemia Monitor HR and BP keep MAP>65mmHg 2D echo 09/18/17 - ejection fraction 50-55%. Normal RV function. No vegetations. Home Pitavastatin 2 mg daily converted to pravastatin 40 mg by mouth daily. GI: Hypoalbuminemia Nothing by mouth after midnight Famotidine for GI prophylaxis Docusate sodium/senna 1 tablet twice a day for bowel regimen FEN/RENAL/: Chronic severe protein energy malnutrition Hypoalbuminemia Mild hyponatremia Hypophosphatemia Monitor renal function, I/O's, electrolytes replacement per protocol On NS@84ml/hr -->Discontinue. Taking po well, voiding. Monitor creatinine, on nephrotoxic antimicrobials. ID: HIV Sepsis Cavitary lung mass/abscess Pseudomonas MDRO/MRSA pneumonia MRSA nasal swab positive ID has continued HAART regimen per Dr. Preston (patient's HIV/ID physician in [facility]). Patient taking on meds Emtricitabine 200 grams/Tenofovir 25 grams daily,Atazanavir 300 milligrams/Cobicistat 150 mg po daily. Antibiotics per ID, Dr. Roche: Vancomycin 09/19 #2 gentamicin 300 mg IV every 24 hours 09/18# 3 fluconazole 200 mg by mouth daily day #2 09/19 (for dysphagia with ?jaci esophagitis per Records at [facility], consider EGD when resp status stabilized), piperacillin/tazobactam 09/17 #4 Mupirocin twice a day for universal discoloration protocol [employer] From [facility]: Gram stain oral fluid: Few gram-negative bacilli, many white blood cells on final report. Right lung abscess deep culture with Pseudomonas sensitive to gentamicin and tobramycin. States sensitive to piperacillin/tazobactam... BUCK abscess fluid 64 ? defer to ID. AFB and fungal smear negative, culture pending. Microbiology: Blood cultures 2 - 09/17 - no growth Sputum - 09/18 - Pseudomonas pneumonia MDRO positive, MRSA Urine Legionella and pneumococcal antigen -09/18 Heme: Leukocytosis Normocytic anemia Monitor CBC. Follow trends Does not meet transfusion requirements at this time Endo: Hyperglycemia critical illness Bedside glucose every before meals/at bedtime with low-dose sliding scale as indicated DVT GI prophylaxis SCDs/ heparin 5000 subcutaneous every 8 hours -Famotidine for stress ulcer prophylaxis ACCESS: PIV Level II follow-up Jhonny Kim MD Sep 20, 2017 16:18
[2017-09-20] MEDS: CLOTRIMAZOLE 10 MG TROCHE BUCCAL SCH ×2 (18:00→21:49)
[2017-09-20] MEDS: GENTAMICIN INJ 300 MG in SODIUM CHLORIDE 0.9% INJ 100 ML IV SCH (18:34)
[2017-09-20] MEDS: FAMOTIDINE 20 MG TAB PO SCH (20:29)
[2017-09-20] MEDS: MUPIROCIN 2% OINT 1 APPLIC/GM SYR EACH NARE SCH (20:29)
[2017-09-20] MEDS ORDERED: LACTATED RINGER'S 1000 ML IV PRN (22:45)
[2017-09-20] MEDS ORDERED: POVIDONE IODINE 5% (ANTISEPSIS KIT) 4 APPLICATIONS EACH NARE PRN (22:45)
[2017-09-20] MEDS ORDERED: CHLORHEXIDINE GLUCONATE 2 % 1 PACK (2 CLOTHS) TOPICAL PRN (22:45)
[2017-09-20] MEDS ORDERED: SODIUM CHLORID 0.9% 500 ML IV PRN (22:45)
[2017-09-20] MEDS: LINEZOLID 600 MG PREMIX 300 ML IV SCH (23:13)
[2017-09-21] VITALS (12 sets, daily range): BP systolic 88–109; BP diastolic 57–78; PULSE 80–122; RESP 18–23; TEMP 97.9–98.9; O2SAT 87–100
[2017-09-21] MEDS: CHLORHEXIDINE GLUCONATE 2 % 1 PACK (2 CLOTHS) TOP SCH (04:00)
[2017-09-21] MEDS: PIPERACIL-TAZO 4.5 GM PREMIX 100 ML IV SCH ×3 (04:31→17:17)
[2017-09-21 04:43] LABS: BASOPHIL % 0.2 % (0.0-2.0); EOSINOPHIL % 0.2 % (0.0-4.0); HEMATOCRIT 34.6 % (39.0-51.0); HEMOGLOBIN 11.8 GM/DL (13.0-17.0); LYMPH % 9.2 % (9.0-44.0); LYMPHOCYTE # 1.1 TH/MM3 (1.0-4.8); MEAN CELL VOLUME 91.8 FL (80.0-100.0); MEAN CORPUSCULAR HEMOGLOBIN 31.4 PG (27.0-34.0); MEAN CORPUSCULAR HGB CONC 34.2 % (32.0-36.0); MEAN PLATELET VOLUME 6.2 FL (7.0-11.0); MONO % 8.4 % (0.0-8.0); PLATELET COUNT 364 TH/MM3 (150-450); RED BLOOD COUNT 3.76 MIL/MM3 (4.50-5.90); WHITE BLOOD COUNT 12.2 TH/MM3 (4.0-11.0)
[2017-09-21 05:05] LABS: INTERNATIONAL NORMALIZED RATIO 1.1 RATIO; PROTHROMBIN TIME - PATIENT 10.9 SEC (9.8-11.6)
[2017-09-21 05:06] LABS: ALBUMIN 1.7 GM/DL (3.4-5.0); ALT (GPT) 29 U/L (12-78); AST (GOT) 19 U/L (15-37); BICARBONATE 29.5 MEQ/L (21.0-32.0); BLOOD UREA NITROGEN 14 MG/DL (7-18); CALCIUM 8.5 MG/DL (8.5-10.1); CHLORIDE 98 MEQ/L (98-107); CREATININE 0.47 MG/DL (0.60-1.30); GLOMERULAR FILTRATION RATE 190 ML/MIN (>89); GLUCOSE,RANDOM 89 MG/DL (74-106); PHOSPHORUS 2.5 MG/DL (2.5-4.9); SODIUM (NA) 134 MEQ/L (136-145)
[2017-09-21 05:09] LABS: ALKALINE PHOSPHATASE 125 U/L (45-117); TOTAL BILIRUBIN ADULT 0.8 MG/DL (0.2-1.0); TOTAL PROTEIN 5.8 GM/DL (6.4-8.2)
[2017-09-21] MEDS: CLOTRIMAZOLE 10 MG TROCHE BUCCAL SCH ×5 (05:09→21:49)
[2017-09-21] MEDS: HEPARIN SODIUM - SQ 10,000 UNITS/ML VIAL SQ SCH ×2 (05:09→13:13)
[2017-09-21] MEDS ORDERED: BUPIVACAINE LIPOSO PF 1.3% INJ 20 ML, DEXAMETHASONE INJ 4 MG, MORPHINE INJ 8 MG in SODI... IRRIGATION ONE (07:30)
[2017-09-21] MEDS ORDERED: BUPIVACAINE LIPOSO PF 1.3% INJ 20 ML, DEXAMETHASONE INJ 4 MG, MORPHINE INJ 8 MG in SODI... P-ARTICULR SCH (08:00)
[2017-09-21] MEDS: INSULIN NovoLIN REGULAR SUPPLEMENTAL SCALE SQ SCH ×4 (08:00→21:00)
[2017-09-21] MEDS: RESP: ALBUTEROL 2.5 MG/IPRATROPIUM 0.5 MG NEB (SCH) INH (08:00)
[2017-09-21] MEDS ORDERED: HEPARIN SODIUM - SQ 10,000 UNITS/ML VIAL ONE (08:05)
[2017-09-21] MEDS ORDERED: ceFAZolin 2 GM PREMIX 50 ML ONE ×2 (08:05→09:03)
[2017-09-21] MEDS: MUPIROCIN 2% OINT 1 APPLIC/GM SYR EACH NARE SCH ×2 (09:00→21:00)
[2017-09-21] MEDS: DESCOVY PO SCH (09:00)
[2017-09-21] MEDS: FLUCONAZOLE 200 MG TAB PO SCH (09:00)
[2017-09-21] MEDS: FAMOTIDINE 20 MG TAB PO SCH ×2 (09:00→21:49)
[2017-09-21] MEDS: EVOTAZ PO SCH (09:00)
[2017-09-21] MEDS: SODIUM CHLORIDE 0.9% FLUSH 10 ML FLUSH IV FLUSH SCH ×2 (09:00→21:50)
[2017-09-21] MEDS: DOCUSATE SODIUM 50 MG/SENNA 8.6 MG TAB PO SCH (09:00)
[2017-09-21] MEDS: PRAVASTATIN SOD 40 MG TAB PO SCH (09:00)
[2017-09-21] MEDS: LINEZOLID 600 MG PREMIX 300 ML IV SCH (11:00)
[2017-09-21] MEDS ORDERED: SODIUM CHLORIDE 0.9% FLUSH 10 ML FLUSH IV FLUSH PRN (11:30)
[2017-09-21] MEDS ORDERED: RESP: ALBUTEROL 2.5 MG/3 ML NEB (PRN) NEB (11:30)
[2017-09-21] MEDS ORDERED: ONDANSETRON HCL 4 MG/2 ML VIAL IV PUSH PRN (11:30)
[2017-09-21] MEDS ORDERED: ACETAMINOPHEN/HYDROcodone 325 MG/5 MG TAB PO PRN (11:30)
[2017-09-21] MEDS ORDERED: MAGNESIUM HYDROXIDE SUSP 30 ML CUP PO PRN (11:30)
[2017-09-21] MEDS ORDERED: ACETAMINOPHEN 325 MG TAB PO PRN (11:30)
[2017-09-21] MEDS ORDERED: Post-op Orders (for Pharmacy) OTHER ONE (11:30)
[2017-09-21] MEDS ORDERED: NALOXONE HCL 0.4 MG/ML AMP IV PUSH PRN (11:30)
[2017-09-21] MEDS: ACETAMINOPHEN 1000 MG/100 ML 100 ML IV SCH ×2 (12:00→17:18)
[2017-09-21] MEDS ORDERED: VECURONIUM BROMIDE 20 MG VIAL IV ONE (12:00)
[2017-09-21] MEDS ORDERED: DEXAMETHASONE SOD PHOS 4 MG/ML VIAL IV ONE (12:00)
[2017-09-21] MEDS ORDERED: ESMOLOL HCL 100 MG/10 ML VIAL IV ONE (12:00)
[2017-09-21] MEDS ORDERED: PROPOFOL 200 MG/20 ML AMP IV ONE (12:00)
[2017-09-21] MEDS ORDERED: LIDOCAINE HCL 1% PF 5 ML SYRINGE OTHER ONE (12:00)
[2017-09-21] MEDS ORDERED: PHENYLEPHRINE HCL 10 MG/ML VIAL IV ONE (12:00)
[2017-09-21] MEDS ORDERED: GLYCOPYRROLATE 1 MG/5 ML SYRINGE IV PUSH ONE (12:00)
[2017-09-21] MEDS ORDERED: PHENYLEPH/NS 1000 MCG/10 ML SYR IV ONE (12:00)
[2017-09-21] MEDS ORDERED: ONDANSETRON HCL 4 MG/2 ML VIAL IV ONE (12:00)
[2017-09-21] MEDS ORDERED: KETOROLAC TROMETHAMINE 30 MG/ML (IVP) VIAL IV PUSH ONE (12:00)
[2017-09-21] MEDS ORDERED: NORMOSOL R INJ 1,000 ML IV ONE (12:00)
[2017-09-21] MEDS ORDERED: NEOSTIGMINE 5 MG/5 ML SYRINGE IV PUSH ONE (12:00)
[2017-09-21] MEDS ORDERED: DO NOT ADM ANY ANTICOAGULANT DRUGS PRN (12:09)
--- NOTE | 2017-09-21 12:21 | EKG ---
Date Performed: 09/20/2017 Time Performed: 20:27:48 PTAGE: 47 years EKG: Sinus rhythm BORDERLINE RIGHT AXIS DEVIATION BORDERLINE ECG NO PREVIOUS TRACING 09/20/20172026 DOCTOR: Kartik Burk Interpretating Date/Time 09/21/2017 12:20:33
[2017-09-21] MEDS ORDERED: MIDAZOLAM HCL 2 MG/2 ML VIAL ONE (12:25)
[2017-09-21] MEDS ORDERED: *morphine SULFATE 10 MG/ML PERIprocedure ONLY ONE (12:32)
--- NOTE | 2017-09-21 12:54 | RADRPT ---
EXAM DATE/TIME: 09/21/2017 12:15 [place] COMPARISON: CHEST SINGLE AP, September 19, 2017, 8:12. INDICATIONS : Evaluate for pneumothorax. MEDICAL HISTORY : None. SURGICAL HISTORY : None. ENCOUNTER: Initial ACUITY: 1 day PAIN SCORE: Non-responsive. LOCATION: Bilateral chest FINDINGS: Postsurgical changes are identified in the right hemithorax following thoracotomy. Large bore chest t ube is noted within the right pleural space. A small right apical pneumothorax is present. Subcutaneous emphysema is again noted throughout the up per chest wall. CONCLUSION: Small right apical pneumothorax status post right thoracotomy. Rolf Arnett MD on September 21, 2017 at 12:50 Board Certified Radiologist. This report was verified electronically.
[2017-09-21] MEDS ORDERED: TERBUTALINE INJ 1 MG/ML AMP SQ PRN (13:00)
[2017-09-21 13:27] LABS: HEMATOCRIT 37.9 % (39.0-51.0); HEMOGLOBIN 12.7 GM/DL (13.0-17.0)
[2017-09-21] MEDS ORDERED: PHENYLEPHRINE 40 MG in D5W 500 ML IV PRN (13:30)
[2017-09-21] MEDS: PCA - TOTAL MG MORPHINE DELIVERED PER SHIFT SCH ×2 (14:00→22:00)
[2017-09-21] MEDS: MORPHINE SULFATE 30 MG/30 ML PCA IV SCH ×2 (14:14→22:51)
--- NOTE | 2017-09-21 14:17 | PD.OP ---
cc: Jose Camacho MD Operative Report Date of Surgery: Sep 21, 2017 Preoperative Diagnosis: Postoperative Diagnosis: Procedure: 1. Right Posterolateral Muscle Sparing Thoracotomy 2. Right Upper Lobectomy 3. Lysis of Adhesions 4. Drainage of Abscess 5. Intercostal Nerve Block Surgeon: Jose Camacho Roadability Machine Operator(s): Gail Rojo Operation and Findings: PREOPERATIVE DIAGNOSIS 1. Right Upper Lobe Cavitary Lung Abscess 2. COPD 3. HIV 4. Pneumonia POSTOPERATIVE DIAGNOSIS same PROCEDURES 1. Right Posterolateral Muscle Sparing Thoracotomy 2. Right Upper Lobectomy 3. Lysis of Adhesions 4. Drainage of Abscess 5. Intercostal Nerve Block SURGEON Jose Camacho MD ENVIRONMENTAL PROGRAM MANAGER ARLENE Finley ANESTHESIA General double-lumen endotracheal. RUBBER COMPOUNDER SUPERVISOR STORM Ortiz MD DRAINS [address] COUNTS Needle, sponge, and instrument counts were correct. COMPLICATIONS None. INDICATION FOR PROCEDURE The patient is a 47 yo gentleman with HIV and larger right lung cavitary abscess presenting for surgical resection of above pathology. DESCRIPTION OF PROCEDURE The patient was brought to the operating suite and placed in supine position. Following satisfactory induction of general double-lumen endotracheal anesthesia , the patient was placed in the left lateral decubitus position. The previously placed chest tube was removed. The right chest and surrounding area was then prepped and draped in the usual sterile fashion. A standard muscle-sparing posterolateral thoracotomy was performed and the serratus anterior muscle spared. The pleural space was entered. Exploration of the chest revealed a dense right upper lobe that was densely adherent to the surrounding structures and full of pus. The upper lobe was carefully dissected free from the surrounding mediastinal and chest wall structures. In doing so, the abscess cavity was entered and approximately 500 mls of purulent fluid was encountered and drained. This was sent for cytological and microbiological analysis. In order to remove all the infected and necrotic tissue, it was determined to proceed with a formal right upper lobectomy. The pulmonary arterial supply to the upper lobe was identified, dissected free and divided as was the pulmonary venous supply. The bronchus was then dissected free, clamped and the remaining lung was insufflated without any difficulty. The fissures were completed with surgical staplers. Specimen was removed from the chest. The remaining lung was submerged under sterile water and inflated. No air leaks were identified. At this point the closure was undertaken. A 32-Latvian chest tube was placed. Intercostal nerve block was performed at the level of the incision and 3 rib spaces above and below using Exparel with Decadron solution. The pericostal space was approximated with interrupted #1 Vicryl sutures in a pericostal fashion. The serratus fascia and Latissimus dorsi were closed with running 0- Vicryl and the remaining wounds closed with 3-0, and 4-0 Monocryl. The patient tolerated the procedure well and postoperatively went to the PACU in stable condition. Jose Camacho MD Sep 21, 2017 14:17
--- NOTE | 2017-09-21 14:34 | HHI.CCPN ---
Subjective Remarks/Hospital Course 09/16: 47-year-old very pleasant gentleman with past medical history of HIV on HAART meds at home, compliant with medications and followed by Dr. Preston in [place] for almost 30 years ([phone]) presented to [facility] with complaints of cough, shortness of breath, and fatigue. He also had a mild fever and chills. The CT of the chest at [facility] revealed extensive large cavitary pneumonia, multiple blebs suggestive of likely COPD and bullous emphysema and secondary infected blebs. Initial sputum revealed presumptive Pseudomonas aeruginosa, resistant to Levaquin, sensitive to Zosyn. Patient underwent needle aspiration of one of the cavitary lesions. The procedure was complicated by development of pneumothorax and subcutaneous emphysema with continues air leak. For this the patient is transferred to [facility] for higher level of care and possible CT surgery consultation. 09/17: Remains on partial rebreather. Persistent large air leak noted from right sided chest tube. Complains of chest pain off and on. 09/18 Patient is on partial rebreather with sats 98-100%. Afebrile. 09/19. Complains of cough with sputum production and states he remains sitting upright because dyspneic when flat. On NC. Intermittent air leak persists with R sided chest tube. Some pain at chest tube site. States he was hallucinating after Restoril and never wants to take that again. Subjective 09/20: Requesting viscous lidocaine for scratchy throat. Plan for lobectomy tomorrow 09/21. Requesting general diet. Positive BM 3. Positive air leak right-sided chest tube. Chest x-ray ordered for a.m. 09/21. 09/21 Patient s/p Right Thoracotomy, RUL Lobectomy, Lysis of Adhesions and drainage of Abscess this morning he was extubated in PACU now on 3L. Afebrile. Objective Vital Signs Date Time Temp Pulse Resp B/P (MAP) Pulse Ox O2 Delivery O2 Flow Rate FiO2 09/21/17 14:14 20 09/21/17 13:45 97.6 118 98/62 (74) 100 Nasal Cannula 3 09/20/17 20:40 21 Intake and Output 09/21/17 09/21/17 09/22/17 08:00 16:00 00:00 Intake Total 480 ml 2800 ml Output Total 500 ml 950 ml Balance -20 ml 1850 ml Result Diagram: 09/21/17 1315 09/21/17 0315 Other Results Laboratory Tests Test 09/21/17 00:31 09/21/17 03:15 09/21/17 13:15 Prothrombin Time 10.9 SEC Prothromb Time International Ratio 1.1 RATIO Activated Partial Thromboplast Time 24.5 SEC Fibrinogen 353 mg/dL White Blood Count 12.2 TH/MM3 Red Blood Count 3.76 MIL/MM3 Hemoglobin 11.8 GM/DL 12.7 GM/DL Hematocrit 34.6 % 37.9 % Mean Corpuscular Volume 91.8 FL Mean Corpuscular Hemoglobin 31.4 PG Mean Corpuscular Hemoglobin Concent 34.2 % Red Cell Distribution Width 14.0 % Platelet Count 364 TH/MM3 Mean Platelet Volume 6.2 FL Neutrophils (%) (Auto) 82.0 % Lymphocytes (%) (Auto) 9.2 % Monocytes (%) (Auto) 8.4 % Eosinophils (%) (Auto) 0.2 % Basophils (%) (Auto) 0.2 % Neutrophils # (Auto) 10.0 TH/MM3 Lymphocytes # (Auto) 1.1 TH/MM3 Monocytes # (Auto) 1.0 TH/MM3 Eosinophils # (Auto) 0.0 TH/MM3 Basophils # (Auto) 0.0 TH/MM3 CBC Comment AUTO DIFF Differential Comment AUTO DIFF CONFIRMED Platelet Estimate NORMAL Platelet Morphology Comment NORMAL Blood Urea Nitrogen 14 MG/DL Creatinine 0.47 MG/DL Random Glucose 89 MG/DL Total Protein 5.8 GM/DL Albumin 1.7 GM/DL Calcium Level 8.5 MG/DL Phosphorus Level 2.5 MG/DL Magnesium Level 2.0 MG/DL Alkaline Phosphatase 125 U/L Aspartate Amino Transf (AST/SGOT) 19 U/L Alanine Aminotransferase (ALT/SGPT) 29 U/L Total Bilirubin 0.8 MG/DL Sodium Level 134 MEQ/L Potassium Level 4.1 MEQ/L Chloride Level 98 MEQ/L Carbon Dioxide Level 29.5 MEQ/L Anion Gap 7 MEQ/L Estimat Glomerular Filtration Rate 190 ML/MIN Imaging Last Impressions Chest X-Ray 09/19/17 0600 Signed Impressions: Service Date/Time: Tuesday, September 19, 2017 08:12 - CONCLUSION: 1. Large cavitary mass with associated soft tissue density occupying much of the right upper lung. This appears to cause some displacement of the trachea at the level of the thoracic inlet towards the left. 2. Right chest tube without a pneumothorax seen on this plain film examination. There continues to be extensive subcutaneous emphysema. 3. Mild right pleural effusion. Kosta Jones MD Chest CT 09/17/17 0000 Signed Impressions: Service Date/Time: August 21:03 - CONCLUSION: 1. Large cavitary mass measuring 10.3 x 12.9 cm in the right apex which appears parenchymal and is consistent with cavitary lung mass, abscess or secondarily infected. There are additional bilateral subcentimeter cavitary lung nodules. 2. Well-positioned apical right anterior chest tube with moderate residual right-sided inferior hydropneumothorax. Patient may benefit from second inferiorly placed chest tube. 3. Extensive subcutaneous emphysema and pneumomediastinum. Charli Linder MD Objective Remarks GENERAL: 47-year-old male resting in bed in no acute distress SKIN: Warm and dry, adequately perfused. HEAD: Normocephalic. EYES: No scleral icterus. No injection or drainage. NECK: Supple, trachea midline. No JVD or lymphadenopathy. CARDIOVASCULAR: RRR. S1, S2 no S4. Without murmurs clicks, rubs RESPIRATORY: Breath sounds more distant on right mid lung field with rhonchi RUL. No wheeze or rales. He needs emphysema present right anterior chest wall bilaterally. Right sided chest tube in place -20 cm suction with 2-3+ air leak with cough, minimal serosanguineous fluid in chamber. 7 cc past 24 hours GASTROINTESTINAL: Abdomen soft, non-tender, scaphoid, bowel sounds present. MUSCULOSKELETAL: No significant peripheral edema. NEURO EXAM: Awake alert oriented 3, cranial nerves II through XII grossly intact. Moves all extremities spontaneously without apparent focal deficit. A/P Assessment and Plan Neuro/Psych: Monitor neuro status Acetaminophen 650 mg by mouth every 6 hours when necessary fever/pain 1-2 Hydrocodone/acetaminophen 10/325 one tablet q4 hours prn pain 3-10. Hydromorphone 1 mg IV every 4 hours as needed for breakthrough pain Pulm: Hypoxia with respiratory insufficiency secondary to: Right upper lobe Cavitary lung mass Right hydro Pneumothorax following CT guided needle aspirate of RUL at outside facility 09/14/17. Per procedure note at outside hospital 6 mLs of thick aspirate was obtained and sent to lab for analysis. Chest tube placed OSH ( [facility]) for iatrogenic PTX 09/13 Subcutaneous emphysema Pseudomonas pneumonia MDRO and MRSA pneumonia COPD Ongoing tobaccoism s/p Right Thoracotomy, RUL Lobectomy, Lysis of Adhesions and drainage of Abscess today by Dr. Camacho Continue with oxygen keep sat >92% Albuterol/ipratropium aerosols every 8 hours with albuterol aerosols every 2 hours as needed Dyspnea Pulmonology (Dr. Gregg Minor) and CTS (Dr. Camacho) following. Monitor CT drainage 09/14 - Path report from [facility] states " right lung abscess fluid for cytologic exam with smear and cellblock: Abscess contents, negative for malignant cells" CV: Hyperlipidemia Monitor HR and BP keep MAP>65mmHg 2D echo 09/18/17 - ejection fraction 50-55%. Normal RV function. No vegetations. Home Pitavastatin 2 mg daily converted to pravastatin 40 mg by mouth daily. GI: Hypoalbuminemia NPO Famotidine for GI prophylaxis Docusate sodium/senna 1 tablet twice a day for bowel regimen FEN/RENAL/: Chronic severe protein energy malnutrition Hypoalbuminemia Mild hyponatremia Hypophosphatemia Monitor renal function, I/O's, electrolytes replacement per protocol ID: HIV Sepsis Cavitary lung mass/abscess Pseudomonas MDRO/MRSA pneumonia MRSA nasal swab positive ID has continued HAART regimen per Dr. Preston (patient's HIV/ID physician in [facility] Patient taking on meds Emtricitabine 200 grams/Tenofovir 25 grams daily,Atazanavir 300 milligrams/Cobicistat 150 mg po daily. Antibiotics per ID, Dr. Roche: Vancomycin, gentamicin, fluconazole (for dysphagia with ?jaci esophagitis per Records at [facility], consider EGD when resp status stabilized), piperacillin/tazobactam Mupirocin twice a day for universal discoloration protocol [employer] From [facility]: Gram stain oral fluid: Few gram-negative bacilli, many white blood cells on final report. Right lung abscess deep culture with Pseudomonas sensitive to gentamicin and tobramycin. States sensitive to piperacillin/tazobactam... BUCK abscess fluid 64 ? defer to ID. AFB and fungal smear negative, culture pending. Microbiology: Blood cultures 2 - 09/17 - no growth Sputum - 09/18 - Pseudomonas pneumonia MDRO positive, MRSA Urine Legionella and pneumococcal antigen -09/18 Heme: Leukocytosis Normocytic anemia Monitor CBC. Follow trends Endo: Hyperglycemia critical illness Bedside glucose every before meals/at bedtime with low-dose sliding scale as indicated DVT GI prophylaxis SCDs/ heparin 5000 subcutaneous every 8 hours -Famotidine for stress ulcer prophylaxis ACCESS: PIV Level 3 Alanna Gore MD Sep 21, 2017 14:34
[2017-09-21] MEDS: KETOROLAC TROMETHAMINE 30 MG/ML (IVP) VIAL IV PUSH SCH ×2 (15:20→21:48)
[2017-09-21] MEDS: RESP: ALBUTEROL 2.5 MG/3 ML NEB (SCH) NEB ×2 (15:38→19:56)
[2017-09-21] MEDS ORDERED: SODIUM CHLOR 0.9% 1000 ML INJ 1,000 ML IV ONE (16:00)
[2017-09-21] MEDS: DEXT 5%-NACL 0.9% 1000 ML INJ 1,000 ML IV SCH (17:08)
[2017-09-21] MEDS: DOCUSATE CALCIUM 240 MG CAP PO SCH (21:49)
[2017-09-21] MEDS: PANTOPRAZOLE SOD 40 MG DELAYED RELEASE TAB PO SCH (21:49)
[2017-09-22] VITALS (17 sets, daily range): BP systolic 93–121; BP diastolic 57–97; PULSE 90–107; RESP 16–32; TEMP 98.1–98.8; O2SAT 93–100
[2017-09-22] MEDS: PIPERACIL-TAZO 4.5 GM PREMIX 100 ML IV SCH ×5 (00:32→21:50)
[2017-09-22] MEDS: ACETAMINOPHEN 1000 MG/100 ML 100 ML IV SCH ×2 (00:33→05:10)
[2017-09-22] MEDS: LINEZOLID 600 MG PREMIX 300 ML IV SCH ×3 (00:33→21:50)
[2017-09-22] MEDS: ACETAMINOPHEN/HYDROcodone 325 MG/5 MG TAB PO PRN ×5 (01:55→21:48)
[2017-09-22] MEDS: KETOROLAC TROMETHAMINE 30 MG/ML (IVP) VIAL IV PUSH SCH ×2 (01:58→08:09)
[2017-09-22] MEDS: CHLORHEXIDINE GLUCONATE 2 % 1 PACK (2 CLOTHS) TOP SCH ×2 (04:00→21:54)
[2017-09-22] MEDS: RESP: ALBUTEROL 2.5 MG/3 ML NEB (SCH) NEB ×4 (04:08→21:25)
[2017-09-22 04:10] LABS: AUTOMATED NEUTROPHIL # 11.5 TH/MM3 (1.8-7.7); BASOPHIL # 0.1 TH/MM3 (0-0.2); BASOPHIL % 0.4 % (0.0-2.0); HEMATOCRIT 27.9 % (39.0-51.0); HEMOGLOBIN 9.6 GM/DL (13.0-17.0); LYMPH % 10.6 % (9.0-44.0); LYMPHOCYTE # 1.5 TH/MM3 (1.0-4.8); MEAN CELL VOLUME 91.7 FL (80.0-100.0); MEAN CORPUSCULAR HEMOGLOBIN 31.6 PG (27.0-34.0); MEAN CORPUSCULAR HGB CONC 34.4 % (32.0-36.0); MEAN PLATELET VOLUME 6.7 FL (7.0-11.0); MONO % 7.1 % (0.0-8.0); NEUT % 81.9 % (16.0-70.0); PLATELET COUNT 223 TH/MM3 (150-450); RED BLOOD COUNT 3.05 MIL/MM3 (4.50-5.90); RED CELL DISTRIBUTION WIDTH 14.7 % (11.6-17.2)
[2017-09-22 04:33] LABS: ALBUMIN 1.2 GM/DL (3.4-5.0); BICARBONATE 20.8 MEQ/L (21.0-32.0); CALCIUM 7.4 MG/DL (8.5-10.1); CREATININE 0.69 MG/DL (0.60-1.30); MAGNESIUM 1.7 MG/DL (1.5-2.5)
[2017-09-22 04:36] LABS: CALCIUM-PROTEIN CORRECTED 9.4 MG/DL (8.5-10.1); PHOSPHORUS 2.7 MG/DL (2.5-4.9); TOTAL BILIRUBIN ADULT 0.2 MG/DL (0.2-1.0); TOTAL PROTEIN 3.8 GM/DL (6.4-8.2)
[2017-09-22] MEDS: CLOTRIMAZOLE 10 MG TROCHE BUCCAL SCH ×5 (05:10→21:50)
[2017-09-22] MEDS: DEXT 5%-NACL 0.9% 1000 ML INJ 1,000 ML IV SCH (05:11)
--- NOTE | 2017-09-22 05:14 | RADRPT ---
EXAM DATE/TIME: 09/22/2017 03:36 [place] COMPARISON: CHEST SINGLE AP, September 21, 2017, 12:15. INDICATIONS : Short of breath. MEDICAL HISTORY : None. SURGICAL HISTORY : None. ENCOUNTER: Subsequent ACUITY: 4 - 6 days PAIN SCORE: 0/10 LOCATION: Bilateral chest FINDINGS: Stable right apical chest tube. No significant pneumothorax. Persistent subcutaneous emphysema. Cardi omediastinal contours are stable. Remainder of exam is unchanged. CONCLUSION: 1. Stable right apical chest tube without significant pneumothorax. Charli Linder MD on September 22, 2017 at 5:11 Board Certified Radiologist. This report was verified electronically.
--- NOTE | 2017-09-22 07:40 | HHI.CCPN ---
Subjective Remarks/Hospital Course 09/16: 47-year-old very pleasant gentleman with past medical history of HIV on HAART meds at home, compliant with medications and followed by Dr. Preston in [place] for almost 30 years ([phone]) presented to [facility] with complaints of cough, shortness of breath, and fatigue. He also had a mild fever and chills. The CT of the chest at [facility] revealed extensive large cavitary pneumonia, multiple blebs suggestive of likely COPD and bullous emphysema and secondary infected blebs. Initial sputum revealed presumptive Pseudomonas aeruginosa, resistant to Levaquin, sensitive to Zosyn. Patient underwent needle aspiration of one of the cavitary lesions. The procedure was complicated by development of pneumothorax and subcutaneous emphysema with continues air leak. For this the patient is transferred to [facility] for higher level of care and possible CT surgery consultation. 09/17: Remains on partial rebreather. Persistent large air leak noted from right sided chest tube. Complains of chest pain off and on. 09/18 Patient is on partial rebreather with sats 98-100%. Afebrile. 09/19. Complains of cough with sputum production and states he remains sitting upright because dyspneic when flat. On NC. Intermittent air leak persists with R sided chest tube. Some pain at chest tube site. States he was hallucinating after Restoril and never wants to take that again. Subjective 09/20: Requesting viscous lidocaine for scratchy throat. Plan for lobectomy tomorrow 09/21. Requesting general diet. Positive BM 3. Positive air leak right-sided chest tube. Chest x-ray ordered for a.m. 09/21. 09/21 Patient s/p Right Thoracotomy, RUL Lobectomy, Lysis of Adhesions and drainage of Abscess this morning he was extubated in PACU now on 3L. Afebrile. 09/22 No events overnight. On morphine [employer] for pain. Afebrile. Objective Vital Signs Date Time Temp Pulse Resp B/P (MAP) Pulse Ox O2 Delivery O2 Flow Rate FiO2 09/22/17 04:00 98.5 97 22 106/71 (83) 100 09/21/17 20:01 Nasal Cannula 2.00 09/20/17 20:40 21 Result Diagram: 09/22/17 0335 09/22/17 0335 Other Results Laboratory Tests Test 09/21/17 13:15 09/22/17 03:35 Hemoglobin 12.7 GM/DL 9.6 GM/DL Hematocrit 37.9 % 27.9 % White Blood Count 14.0 TH/MM3 Red Blood Count 3.05 MIL/MM3 Mean Corpuscular Volume 91.7 FL Mean Corpuscular Hemoglobin 31.6 PG Mean Corpuscular Hemoglobin Concent 34.4 % Red Cell Distribution Width 14.7 % Platelet Count 223 TH/MM3 Mean Platelet Volume 6.7 FL Neutrophils (%) (Auto) 81.9 % Lymphocytes (%) (Auto) 10.6 % Monocytes (%) (Auto) 7.1 % Eosinophils (%) (Auto) 0.0 % Basophils (%) (Auto) 0.4 % Neutrophils # (Auto) 11.5 TH/MM3 Lymphocytes # (Auto) 1.5 TH/MM3 Monocytes # (Auto) 1.0 TH/MM3 Eosinophils # (Auto) 0.0 TH/MM3 Basophils # (Auto) 0.1 TH/MM3 CBC Comment DIFF FINAL Differential Comment Blood Urea Nitrogen 24 MG/DL Creatinine 0.69 MG/DL Random Glucose 231 MG/DL Total Protein 3.8 GM/DL Albumin 1.2 GM/DL Calcium Level 7.4 MG/DL Phosphorus Level 2.7 MG/DL Magnesium Level 1.7 MG/DL Alkaline Phosphatase 77 U/L Aspartate Amino Transf (AST/SGOT) 69 U/L Alanine Aminotransferase (ALT/SGPT) 57 U/L Total Bilirubin 0.2 MG/DL Sodium Level 132 MEQ/L Potassium Level 3.7 MEQ/L Chloride Level 101 MEQ/L Carbon Dioxide Level 20.8 MEQ/L Anion Gap 10 MEQ/L Estimat Glomerular Filtration Rate 122 ML/MIN Protein Corrected Calcium 9.4 MG/DL Imaging Last Impressions Chest X-Ray 09/22/17 0500 Signed Impressions: Service Date/Time: Friday, September 22, 2017 03:36 - CONCLUSION: 1. Stable right apical chest tube without significant pneumothorax. Charli Linder MD Chest CT 09/17/17 0000 Signed Impressions: Service Date/Time: August 21:03 - CONCLUSION: 1. Large cavitary mass measuring 10.3 x 12.9 cm in the right apex which appears parenchymal and is consistent with cavitary lung mass, abscess or secondarily infected. There are additional bilateral subcentimeter cavitary lung nodules. 2. Well-positioned apical right anterior chest tube with moderate residual right-sided inferior hydropneumothorax. Patient may benefit from second inferiorly placed chest tube. 3. Extensive subcutaneous emphysema and pneumomediastinum. Charli Linder MD Objective Remarks GENERAL: 47-year-old male resting in bed in no acute distress SKIN: Warm and dry, adequately perfused. HEAD: Normocephalic. EYES: No scleral icterus. No injection or drainage. NECK: Supple, trachea midline. No JVD or lymphadenopathy. CARDIOVASCULAR: RRR. S1, S2 no S4. Without murmurs clicks, rubs RESPIRATORY: Breath sounds more distant on right mid lung field with rhonchi RUL. No wheeze or rales. He needs emphysema present right anterior chest wall bilaterally. Right sided chest tube in place -20 cm suction with 2-3+ air leak with cough, minimal serosanguineous fluid in chamber. 7 cc past 24 hours GASTROINTESTINAL: Abdomen soft, non-tender, scaphoid, bowel sounds present. MUSCULOSKELETAL: No significant peripheral edema. NEURO EXAM: Awake alert oriented 3, cranial nerves II through XII grossly intact. Moves all extremities spontaneously without apparent focal deficit. A/P Assessment and Plan Neuro/Psych: Monitor neuro status On Morphine [employer] for pain. Acetaminophen 650 mg by mouth every 6 hours when necessary fever/pain 1-2 Hydrocodone/acetaminophen 10/325 one tablet q4 hours prn pain 3-10. Hydromorphone 1 mg IV every 4 hours as needed for breakthrough pain Pulm: Hypoxia with respiratory insufficiency secondary to: Right upper lobe Cavitary lung mass Right hydro Pneumothorax following CT guided needle aspirate of RUL at outside facility 09/14/17. Per procedure note at outside hospital 6 mLs of thick aspirate was obtained and sent to lab for analysis. Chest tube placed OSH ( [facility]) for iatrogenic PTX 09/13 Subcutaneous emphysema Pseudomonas pneumonia MDRO and MRSA pneumonia COPD Ongoing tobaccoism s/p Right Thoracotomy, RUL Lobectomy, Lysis of Adhesions and drainage of Abscess today by Dr. Camacho Continue with oxygen keep sat >92% Albuterol/ipratropium aerosols every 8 hours with albuterol aerosols every 2 hours as needed Dyspnea Pulmonology (Dr. Gregg Minor) and CTS (Dr. Camacho) following. Monitor CT drainage 09/14 - Path report from [place] states " right lung abscess fluid for cytologic exam with smear and cellblock: Abscess contents, negative for malignant cells" CV: Hyperlipidemia Monitor HR and BP keep MAP>65mmHg 2D echo 09/18/17 - ejection fraction 50-55%. Normal RV function. No vegetations. Home Pitavastatin 2 mg daily converted to pravastatin 40 mg by mouth daily. GI: Hypoalbuminemia On PO diet Change IVF NS@75ml/hr Famotidine for GI prophylaxis Docusate sodium/senna 1 tablet twice a day for bowel regimen FEN/RENAL/: Chronic severe protein energy malnutrition Hypoalbuminemia Mild hyponatremia Hypophosphatemia Monitor renal function, I/O's, electrolytes replacement per protocol ID: HIV Sepsis Cavitary lung mass/abscess Pseudomonas MDRO/MRSA pneumonia MRSA nasal swab positive ID has continued HAART regimen per Dr. Preston (patient's HIV/ID physician in [facility]). Patient taking on meds Emtricitabine 200 grams/Tenofovir 25 grams daily,Atazanavir 300 milligrams/Cobicistat 150 mg po daily. Antibiotics per ID, Dr. Roche: Zyvox, Zosyn, fluconazole. Monitor for signs of infections ( Fever, WBC) Mupirocin twice a day for universal discoloration protocol [employer] From [place]: Gram stain oral fluid: Few gram-negative bacilli, many white blood cells on final report. Right lung abscess deep culture with Pseudomonas sensitive to gentamicin and tobramycin. States sensitive to piperacillin/tazobactam... BUCK abscess fluid 64 ? defer to ID. AFB and fungal smear negative, culture pending. Microbiology: Blood cultures 2 - 09/17 - no growth Sputum - 09/18 - Pseudomonas pneumonia MDRO positive, MRSA Urine Legionella and pneumococcal antigen -09/18 Heme: Leukocytosis Normocytic anemia Monitor CBC. Follow trends Endo: Hyperglycemia critical illness Bedside glucose every before meals/at bedtime with low-dose sliding scale as indicated DVT GI prophylaxis SCDs/ heparin 5000 subcutaneous every 8 hours -Famotidine for stress ulcer prophylaxis ACCESS: PIV Level 2 Alanna Gore MD Sep 22, 2017 07:40
[2017-09-22] MEDS: INSULIN NovoLIN REGULAR SUPPLEMENTAL SCALE SQ SCH ×4 (08:00→21:00)
[2017-09-22] MEDS: MUPIROCIN 2% OINT 1 APPLIC/GM SYR EACH NARE SCH ×2 (08:09→21:50)
[2017-09-22] MEDS: SODIUM CHLORIDE 0.9% FLUSH 10 ML FLUSH IV FLUSH SCH ×2 (08:10→21:00)
[2017-09-22] MEDS: EVOTAZ PO SCH (08:10)
[2017-09-22] MEDS: DESCOVY PO SCH (08:10)
[2017-09-22] MEDS: FLUCONAZOLE 200 MG TAB PO SCH (08:10)
[2017-09-22] MEDS: FAMOTIDINE 20 MG TAB PO SCH ×2 (08:10→21:52)
[2017-09-22] MEDS: PRAVASTATIN SOD 40 MG TAB PO SCH (08:11)
[2017-09-22] MEDS: SODIUM CHLOR 0.9% 1000 ML INJ 1,000 ML IV SCH ×2 (08:23→21:53)
[2017-09-22] MEDS ORDERED: PHARMACY ORDERED LAB ONE (11:45)
[2017-09-22] MEDS ORDERED: ACETAMINOPHEN 325 MG TAB PO PRN (12:00)
--- NOTE | 2017-09-22 12:05 | HHI.IDPN ---
Subjective Subjective Remarks is a 47 y/o CM with PMHx of HIV on HAART for past 30 years per in [place]. I could not reach him at number provided [phone] will attempt to call him when more info available from [facility]. Info from [place] reviewed, no culture micro data available. Reviewed hospitalist and ID notes and following information obtained so far. Patient is reportedly compliant with HIV meds with undetectable viral load and CD4 unknown. Patient reports to me that he was being treated with oral levaquin as outpatient for Pneumonia. Despite being treated for Pneumonia he had chest pain. When he presented to [place] with complaints of cough, shortness of breath, and fatigue. He also had a mild fever and chills. The CT of the chest at [place] revealed extensive large cavitary pneumonia, multiple blebs suggestive of likely COPD and bullous emphysema and secondary infected blebs. Patients PCP status is not known at present time and if this bleb is as a result of COPD or PCP related bullae. Initial sputum revealed presumptive Pseudomonas aeruginosa, resistant to Levaquin, sensitive to Zosyn. Patient underwent needle aspiration of one of the cavitary lesions. The procedure was complicated by development of pneumothorax and subcutaneous emphysema with continues air leak. Post procedure patient developed swelling around the neck and therefore it appears patient was transferred to [facility] for higher level of care and possible CT surgery consultation. ID is consulted for evaluation and Mment of Pseudomonas Pneumonia in a patient with preexisiting bleb. Overnight events reviewed. No fevers No rash doing better growing PSAE and MRSA from sputum clx Antibiotics zosyn zyvox Lines Line sites with no e.o infection Past Medical History reviewed Allergies: Coded Allergies: No Known Allergies (Unverified , 09/16/17) Objective . Vital Signs Date Time Temp Pulse Resp B/P (MAP) Pulse Ox O2 Delivery O2 Flow Rate FiO2 09/22/17 07:57 93 Nasal Cannula 2.00 09/22/17 06:00 105 09/22/17 04:00 98.5 97 22 106/71 (83) 100 09/22/17 04:00 97 09/22/17 02:00 90 09/22/17 01:57 18 09/22/17 00:00 98.8 105 16 93/57 (69) 99 09/22/17 00:00 105 09/21/17 22:51 25 09/21/17 22:48 22 09/21/17 22:00 110 09/21/17 22:00 24 09/21/17 20:01 95 Nasal Cannula 2.00 09/21/17 20:00 106 09/21/17 20:00 98.9 106 23 92/57 (69) 100 09/21/17 18:00 103 09/21/17 16:00 98.9 99 19 88/78 (81) 100 09/21/17 15:30 100 Nasal Cannula 3.00 09/21/17 14:58 19 09/21/17 14:14 20 09/21/17 14:00 122 09/21/17 14:00 19 09/21/17 13:45 97.6 118 20 98/62 (74) 100 Nasal Cannula 3 09/21/17 13:30 115 20 105/67 (80) 100 Nasal Cannula 3 09/21/17 13:15 133 20 100/66 (77) 100 Nasal Cannula 3 09/21/17 13:15 132 71/50 09/21/17 13:00 136 20 85/42 (56) 100 Nasal Cannula 3 09/21/17 12:45 136 20 108/61 (77) 100 Nasal Cannula 3 09/21/17 12:30 130 20 111/77 (88) 100 Nasal Cannula 3 09/21/17 12:15 132 20 113/58 (76) 95 Simple Mask 6 . Laboratory Tests Test 09/21/17 03:15 09/21/17 13:15 09/22/17 03:35 White Blood Count 12.2 TH/MM3 14.0 TH/MM3 Red Blood Count 3.76 MIL/MM3 3.05 MIL/MM3 Hemoglobin 11.8 GM/DL 12.7 GM/DL 9.6 GM/DL Hematocrit 34.6 % 37.9 % 27.9 % Mean Corpuscular Volume 91.8 FL 91.7 FL Mean Corpuscular Hemoglobin 31.4 PG 31.6 PG Mean Corpuscular Hemoglobin Concent 34.2 % 34.4 % Red Cell Distribution Width 14.0 % 14.7 % Platelet Count 364 TH/MM3 223 TH/MM3 Mean Platelet Volume 6.2 FL 6.7 FL Neutrophils (%) (Auto) 82.0 % 81.9 % Lymphocytes (%) (Auto) 9.2 % 10.6 % Monocytes (%) (Auto) 8.4 % 7.1 % Eosinophils (%) (Auto) 0.2 % 0.0 % Basophils (%) (Auto) 0.2 % 0.4 % Neutrophils # (Auto) 10.0 TH/MM3 11.5 TH/MM3 Lymphocytes # (Auto) 1.1 TH/MM3 1.5 TH/MM3 Monocytes # (Auto) 1.0 TH/MM3 1.0 TH/MM3 Eosinophils # (Auto) 0.0 TH/MM3 0.0 TH/MM3 Basophils # (Auto) 0.0 TH/MM3 0.1 TH/MM3 CBC Comment AUTO DIFF DIFF FINAL Differential Comment AUTO DIFF CONFIRMED Platelet Estimate NORMAL Platelet Morphology Comment NORMAL Laboratory Tests Test 09/21/17 03:15 09/22/17 03:35 Blood Urea Nitrogen 14 MG/DL 24 MG/DL Creatinine 0.47 MG/DL 0.69 MG/DL Random Glucose 89 MG/DL 231 MG/DL Total Protein 5.8 GM/DL 3.8 GM/DL Albumin 1.7 GM/DL 1.2 GM/DL Calcium Level 8.5 MG/DL 7.4 MG/DL Phosphorus Level 2.5 MG/DL 2.7 MG/DL Magnesium Level 2.0 MG/DL 1.7 MG/DL Alkaline Phosphatase 125 U/L 77 U/L Aspartate Amino Transf (AST/SGOT) 19 U/L 69 U/L Alanine Aminotransferase (ALT/SGPT) 29 U/L 57 U/L Total Bilirubin 0.8 MG/DL 0.2 MG/DL Sodium Level 134 MEQ/L 132 MEQ/L Potassium Level 4.1 MEQ/L 3.7 MEQ/L Chloride Level 98 MEQ/L 101 MEQ/L Carbon Dioxide Level 29.5 MEQ/L 20.8 MEQ/L Anion Gap 7 MEQ/L 10 MEQ/L Estimat Glomerular Filtration Rate 190 ML/MIN 122 ML/MIN Protein Corrected Calcium 9.4 MG/DL Microbiology Date/Time Source Procedure Growth Status 09/21/17 09:00 Abscess Lung Fungal Smear - Final NO FUNGAL ELEMENTS SEEN. Resulted 09/21/17 09:00 Abscess Lung Fungal Culture Pending Resulted 09/21/17 09:00 Abscess Lung Acid Fast Stain - Final NO ACID FAST BACILLI SEEN Resulted 09/21/17 09:00 Abscess Lung Mycobacterial Culture Pending Resulted 09/21/17 09:00 Abscess Lung Gram Stain - Final Resulted 09/21/17 09:00 Wound Culture - Preliminary Pseudomonas Aeruginosa Resulted Imaging Last Impressions Chest X-Ray 09/19/17 0600 Signed Impressions: Service Date/Time: Tuesday, September 19, 2017 08:12 - CONCLUSION: 1. Large cavitary mass with associated soft tissue density occupying much of the right upper lung. This appears to cause some displacement of the trachea at the level of the thoracic inlet towards the left. 2. Right chest tube without a pneumothorax seen on this plain film examination. There continues to be extensive subcutaneous emphysema. 3. Mild right pleural effusion. Kosta Jones MD Chest CT 09/17/17 0000 Signed Impressions: Service Date/Time: August 21:03 - CONCLUSION: 1. Large cavitary mass measuring 10.3 x 12.9 cm in the right apex which appears parenchymal and is consistent with cavitary lung mass, abscess or secondarily infected. There are additional bilateral subcentimeter cavitary lung nodules. 2. Well-positioned apical right anterior chest tube with moderate residual right-sided inferior hydropneumothorax. Patient may benefit from second inferiorly placed chest tube. 3. Extensive subcutaneous emphysema and pneumomediastinum. Charli Linder MD Physical Exam CONSTITUTIONAL/GENERAL: This a thin cachectic patient, in no apparent distress. TUBES/LINES/DRAINS: SKIN: No jaundice, rashes, or lesions. Skin temperature appropriate. Not diaphoretic. EYES: Pupils equal and round and reactive. Extraocular motions intact. No scleral icterus. No injection or drainage. Fundi not examined. ENT: Hearing grossly normal. Nose without bleeding or purulent drainage. Throat without visible erythema, exudates, masses, or lesions. No thrush NECK: Trachea midline. Supple, nontender. No palpable thyroid enlargement or nodularity. CARDIOVASCULAR: Regular rate and rhythm without murmurs, gallops, or rubs. No JVD. Peripheral pulses symmetric. RESPIRATORY/CHEST: Symmetric, unlabored respirations. Clear to auscultation. Breath sounds amphoric to R apex + RUL rhonchi. + increased egophonic (markedly ) R apex CT in place R chest with sanguinous drainage GASTROINTESTINAL: Abdomen soft, non-tender, nondistended. GENITOURINARY: Without palpable bladder distension. MUSCULOSKELETAL: Extremities without clubbing, cyanosis, or edema. No joint tenderness or effusion noted. No calf tenderness. No mottling or clubbing. LYMPHATICS: No palpable cervical or supraclavicular adenopathy. NEUROLOGICAL: Awake and alert. Motor and sensory grossly within normal limits. Follows commands. Clear speech . Moves all extremities. PSYCHIATRIC: Cooperative IV line sites with no e.o infection. Assessment & Plan Remarks MDR Pseudomonas Pneumonia. MRSA pneumonia. Lung abscesses s/p RUL lobectomy. CT in place. Unsure of the timing of the blebs (if these occurred years back as a result of COPD or PCP related Blebs) jl [facility]: he has no bx done there, but has thoracocenthesis with cytology and culture: I requested the report Acute resp failure Pneumothorax : ? post procedure vs spontaneous from bleb leak. HIV on HAART reportedly well controlled with undetectable viral load. High grade leucocytosis (sepsis, ? steroids) Recs: Continue Zosyn IV Continue Zyvox ok to change to oral. Follow intraop cultures. fu Blood cultures x 2 2D ECHO with no e.o vegetations/endocarditis. Continue HAART per (patient's HIV doctor in [place]) jl Micro requested susceptibilities on Zerbaxa IV, Avycaz IV and Vabomere if available. Anita Interiano MD Sep 22, 2017 12:05
[2017-09-22] MEDS: MORPHINE SULFATE 30 MG/30 ML PCA IV SCH ×2 (12:31→20:04)
[2017-09-22] MEDS ORDERED: LIDOCAINE VISCOUS 2% SOLN 15 ML UDC SWISH-SWAL PRN (12:45)
[2017-09-22] MEDS: PCA - TOTAL MG MORPHINE DELIVERED PER SHIFT SCH ×2 (14:00→22:00)
[2017-09-22] MEDS: HEPARIN SODIUM - SQ 10,000 UNITS/ML VIAL SQ SCH ×2 (14:00→19:50)
--- NOTE | 2017-09-22 16:45 | PD.CAR.PN ---
CVT Progress Note Subjective/Hospital Course: A 47-year-old male, history of HIV positive on heart medication HAART for the last 30 years with a doctor in [facility] who apparently is compliant with his medications with an undetectable viral load, CD-4 1200 He was treated recently with Levaquin for outpatient pneumonia. He presented to [facility] on the , found to have cavitary pneumonia and, because of his HIV, they had also found that his CT scan showed an extensive large cavitary pneumonia, multiple blebs suggested of likely COPD, bullous emphysema and secondary infected blebs. The patient underwent needle aspiration of one of the cavitary lesions and it was complicated by development of a large hemothorax and subcutaneous emphysema with continuous air leak. They transferred the patient to our facility for higher care and for cardiovascular surgery consultation. They consulted Infectious Disease for evaluation of Pseudomonas pneumonia in a patient with preexisting blebs. 09/18 pt still has intermittent air leak / now on 4 liter nasal cannula sitting up in bed, still scheduled for tentative surgery on Thursday 09/21 surgery: 1. Right Posterolateral Muscle Sparing Thoracotomy 2. Right Upper Lobectomy 3. Lysis of Adhesions 4. 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 , despite [employer] refusing to get OOB, wants more pain meds/ despite breakthrough meds pleural fluid + pseudomonas ID following will leave chest tube in , needs to be OOB to facilitate drainage Objective: GENERAL: A&O x 3 SKIN: Warm and dry. incision intact right posterior lateral chest wall HEAD: Normocephalic. EYES: No scleral icterus. No injection or drainage. NECK: Supple, trachea midline. No JVD or lymphadenopathy. CARDIOVASCULAR: Regular rate and rhythm without murmurs, gallops, or rubs. RESPIRATORY: Breath sounds equal bilaterally. No accessory muscle use. chest tube in place with bloody drainage , on water seal, no air leak GASTROINTESTINAL: Abdomen soft, non-tender, nondistended. MUSCULOSKELETAL: No cyanosis, or edema. BACK: Nontender without obvious deformity. No CVA tenderness. Vital Signs Date Time Temp Pulse Resp B/P (MAP) Pulse Ox O2 Delivery O2 Flow Rate FiO2 09/22/17 15:48 21 09/22/17 14:00 97 09/22/17 13:13 20 09/22/17 12:31 17 09/22/17 12:00 98.1 96 20 121/64 (83) 99 09/22/17 12:00 107 09/22/17 10:00 96 09/22/17 08:00 97 09/22/17 08:00 98.4 97 18 100/97 (98) 100 09/22/17 07:57 93 Nasal Cannula 2.00 09/22/17 06:00 105 09/22/17 04:00 98.5 97 22 106/71 (83) 100 09/22/17 04:00 97 09/22/17 02:00 90 09/22/17 01:57 18 09/22/17 00:00 98.8 105 16 93/57 (69) 99 09/22/17 00:00 105 09/21/17 22:51 25 09/21/17 22:48 22 09/21/17 22:00 110 09/21/17 22:00 24 09/21/17 20:01 95 Nasal Cannula 2.00 09/21/17 20:00 106 09/21/17 20:00 98.9 106 23 92/57 (69) 100 09/21/17 18:00 103 Result Diagram: 09/22/17 0335 09/22/17 0335 (1) COPD (chronic obstructive pulmonary disease) (2) Cavitary lesion of lung (3) HIV disease (4) Pneumothorax on right Plan: right thoracotomy right upper lobectomy on 09/21 leave chest tube in , pain controll pulm toileting Rosemary Vaughn Sep 22, 2017 16:45
[2017-09-22] MEDS: DOCUSATE CALCIUM 240 MG CAP PO SCH (19:47)
--- NOTE | 2017-09-22 19:55 | HHI.PR ---
Addendum to Inpatient Note Addendum Reason: Additional Documentation Additional Information Recd call from Lung path with evidence of CMV. She will perform GMS stain to r.o PCP. Pathology also consistent with severe pneumonia and lung abscess. dw : order CMV antigenemia. Anita Interiano MD Sep 22, 2017 19:55
[2017-09-22] MEDS: PANTOPRAZOLE SOD 40 MG DELAYED RELEASE TAB PO SCH (21:51)
[2017-09-23] VITALS (32 sets, daily range): BP systolic 111–143; BP diastolic 61–92; PULSE 90–112; RESP 15–30; TEMP 97.8–98.2; O2SAT 78–100
[2017-09-23] MEDS: ACETAMINOPHEN/HYDROcodone 325 MG/5 MG TAB PO PRN ×7 (01:07→23:31)
[2017-09-23] MEDS: RESP: ALBUTEROL 2.5 MG/3 ML NEB (SCH) NEB ×4 (03:27→20:02)
[2017-09-23] MEDS: PIPERACIL-TAZO 4.5 GM PREMIX 100 ML IV SCH ×4 (04:44→21:23)
[2017-09-23] MEDS: HEPARIN SODIUM - SQ 10,000 UNITS/ML VIAL SQ SCH ×3 (05:38→19:46)
[2017-09-23] MEDS: CLOTRIMAZOLE 10 MG TROCHE BUCCAL SCH ×5 (05:38→19:54)
[2017-09-23] MEDS: MORPHINE SULFATE 30 MG/30 ML PCA IV SCH ×3 (07:21→21:25)
[2017-09-23] MEDS: INSULIN NovoLIN REGULAR SUPPLEMENTAL SCALE SQ SCH ×4 (08:00→19:54)
[2017-09-23] MEDS ORDERED: fentaNYL CITRATE 250 MCG/5 ML AMP ONE (08:25)
[2017-09-23] MEDS: MUPIROCIN 2% OINT 1 APPLIC/GM SYR EACH NARE SCH ×2 (08:53→19:54)
[2017-09-23] MEDS: PRAVASTATIN SOD 40 MG TAB PO SCH (08:54)
[2017-09-23] MEDS: FLUCONAZOLE 200 MG TAB PO SCH (08:54)
[2017-09-23] MEDS: FAMOTIDINE 20 MG TAB PO SCH ×2 (08:54→19:54)
[2017-09-23] MEDS: EVOTAZ PO SCH (08:55)
[2017-09-23] MEDS: DESCOVY PO SCH (08:55)
[2017-09-23] MEDS ORDERED: GANCICLOVIR IV SCH (09:00)
[2017-09-23] MEDS ORDERED: SODIUM CHLORIDE 0.9% IV SCH (09:00)
[2017-09-23] MEDS: SODIUM CHLORIDE 0.9% FLUSH 10 ML FLUSH IV FLUSH SCH ×2 (09:14→19:54)
[2017-09-23] MEDS ORDERED: DIATRIZOATE MEGLUM/DIATRIZOATE SOD 9 ML CUP PO ONE (10:30)
--- NOTE | 2017-09-23 11:11 | HHI.IDPN ---
Subjective Subjective Remarks is a 47 y/o CM with PMHx of HIV on HAART for past 30 years per in [place]. I could not reach him at number provided [phone] will attempt to call him when more info available from [facility]. Info from [facility] reviewed, no culture micro data available. Reviewed hospitalist and ID notes and following information obtained so far. Patient is reportedly compliant with HIV meds with undetectable viral load and CD4 unknown. Patient reports to me that he was being treated with oral levaquin as outpatient for Pneumonia. Despite being treated for Pneumonia he had chest pain. When he presented to [facility] with complaints of cough, shortness of breath, and fatigue. He also had a mild fever and chills. The CT of the chest at [facility] revealed extensive large cavitary pneumonia, multiple blebs suggestive of likely COPD and bullous emphysema and secondary infected blebs. Patients PCP status is not known at present time and if this bleb is as a result of COPD or PCP related bullae. Initial sputum revealed presumptive Pseudomonas aeruginosa, resistant to Levaquin, sensitive to Zosyn. Patient underwent needle aspiration of one of the cavitary lesions. The procedure was complicated by development of pneumothorax and subcutaneous emphysema with continues air leak. Post procedure patient developed swelling around the neck and therefore it appears patient was transferred to [facility] for higher level of care and possible CT surgery consultation. ID is consulted for evaluation and Mment of Pseudomonas Pneumonia in a patient with preexisiting bleb. Overnight events reviewed. No fevers No rash doing better growing PSAE and MRSA from sputum clx CT in place with sanguinous discharge. Antibiotics zosyn zyvox Lines Line sites with no e.o infection Past Medical History reviewed Allergies: Coded Allergies: No Known Allergies (Unverified , 09/16/17) Objective . Vital Signs Date Time Temp Pulse Resp B/P (MAP) Pulse Ox O2 Delivery O2 Flow Rate FiO2 09/23/17 08:46 98 Nasal Cannula 2.00 09/23/17 06:00 93 09/23/17 04:00 97.9 102 15 122/65 (84) 94 09/23/17 04:00 102 09/23/17 02:00 93 09/23/17 00:00 97.9 99 20 116/65 (82) 97 09/23/17 00:00 99 09/22/17 22:00 103 09/22/17 22:00 27 09/22/17 22:00 27 09/22/17 21:25 97 21 09/22/17 20:04 20 09/22/17 20:00 98.4 101 27 117/66 (83) 98 09/22/17 20:00 101 09/22/17 19:00 105 09/22/17 18:00 93 09/22/17 18:00 21 09/22/17 17:00 100 32 96 09/22/17 17:00 100 09/22/17 16:01 100 09/22/17 16:01 100 23 111/59 (76) 96 09/22/17 16:00 98.6 102 27 96 09/22/17 16:00 102 09/22/17 15:48 21 09/22/17 14:00 97 09/22/17 14:00 20 09/22/17 13:13 20 09/22/17 12:31 17 09/22/17 12:00 98.1 96 20 121/64 (83) 99 09/22/17 12:00 107 . Laboratory Tests Test 09/21/17 13:15 09/22/17 03:35 Hemoglobin 12.7 GM/DL 9.6 GM/DL Hematocrit 37.9 % 27.9 % White Blood Count 14.0 TH/MM3 Red Blood Count 3.05 MIL/MM3 Mean Corpuscular Volume 91.7 FL Mean Corpuscular Hemoglobin 31.6 PG Mean Corpuscular Hemoglobin Concent 34.4 % Red Cell Distribution Width 14.7 % Platelet Count 223 TH/MM3 Mean Platelet Volume 6.7 FL Neutrophils (%) (Auto) 81.9 % Lymphocytes (%) (Auto) 10.6 % Monocytes (%) (Auto) 7.1 % Eosinophils (%) (Auto) 0.0 % Basophils (%) (Auto) 0.4 % Neutrophils # (Auto) 11.5 TH/MM3 Lymphocytes # (Auto) 1.5 TH/MM3 Monocytes # (Auto) 1.0 TH/MM3 Eosinophils # (Auto) 0.0 TH/MM3 Basophils # (Auto) 0.1 TH/MM3 CBC Comment DIFF FINAL Differential Comment Laboratory Tests Test 09/22/17 03:35 Blood Urea Nitrogen 24 MG/DL Creatinine 0.69 MG/DL Random Glucose 231 MG/DL Total Protein 3.8 GM/DL Albumin 1.2 GM/DL Calcium Level 7.4 MG/DL Phosphorus Level 2.7 MG/DL Magnesium Level 1.7 MG/DL Alkaline Phosphatase 77 U/L Aspartate Amino Transf (AST/SGOT) 69 U/L Alanine Aminotransferase (ALT/SGPT) 57 U/L Total Bilirubin 0.2 MG/DL Sodium Level 132 MEQ/L Potassium Level 3.7 MEQ/L Chloride Level 101 MEQ/L Carbon Dioxide Level 20.8 MEQ/L Anion Gap 10 MEQ/L Estimat Glomerular Filtration Rate 122 ML/MIN Protein Corrected Calcium 9.4 MG/DL Microbiology Date/Time Source Procedure Growth Status 09/21/17 09:00 Abscess Lung Fungal Smear - Final NO FUNGAL ELEMENTS SEEN. Resulted 09/21/17 09:00 Abscess Lung Fungal Culture Pending Resulted 09/21/17 09:00 Abscess Lung Acid Fast Stain - Final NO ACID FAST BACILLI SEEN Resulted 09/21/17 09:00 Abscess Lung Mycobacterial Culture Pending Resulted 09/21/17 09:00 Abscess Lung Gram Stain - Final Resulted 09/21/17 09:00 Wound Culture - Preliminary Pseudomonas Aeruginosa Resulted Imaging Last Impressions Chest X-Ray 09/19/17 0600 Signed Impressions: Service Date/Time: Tuesday, September 19, 2017 08:12 - CONCLUSION: 1. Large cavitary mass with associated soft tissue density occupying much of the right upper lung. This appears to cause some displacement of the trachea at the level of the thoracic inlet towards the left. 2. Right chest tube without a pneumothorax seen on this plain film examination. There continues to be extensive subcutaneous emphysema. 3. Mild right pleural effusion. Kosta Jones MD Chest CT 09/17/17 0000 Signed Impressions: Service Date/Time: August 21:03 - CONCLUSION: 1. Large cavitary mass measuring 10.3 x 12.9 cm in the right apex which appears parenchymal and is consistent with cavitary lung mass, abscess or secondarily infected. There are additional bilateral subcentimeter cavitary lung nodules. 2. Well-positioned apical right anterior chest tube with moderate residual right-sided inferior hydropneumothorax. Patient may benefit from second inferiorly placed chest tube. 3. Extensive subcutaneous emphysema and pneumomediastinum. Charli Linder MD Physical Exam CONSTITUTIONAL/GENERAL: This a thin cachectic patient, in no apparent distress. TUBES/LINES/DRAINS: SKIN: No jaundice, rashes, or lesions. Skin temperature appropriate. Not diaphoretic. EYES: Pupils equal and round and reactive. Extraocular motions intact. No scleral icterus. No injection or drainage. Fundi not examined. ENT: Hearing grossly normal. Nose without bleeding or purulent drainage. Throat without visible erythema, exudates, masses, or lesions. No thrush NECK: Trachea midline. Supple, nontender. No palpable thyroid enlargement or nodularity. CARDIOVASCULAR: Regular rate and rhythm without murmurs, gallops, or rubs. No JVD. Peripheral pulses symmetric. RESPIRATORY/CHEST: Symmetric, unlabored respirations. Clear to auscultation. Breath sounds amphoric to R apex + RUL rhonchi. + increased egophonic (markedly ) R apex CT in place R chest with sanguinous drainage GASTROINTESTINAL: Abdomen soft, non-tender, nondistended. GENITOURINARY: Without palpable bladder distension. MUSCULOSKELETAL: Extremities without clubbing, cyanosis, or edema. No joint tenderness or effusion noted. No calf tenderness. No mottling or clubbing. LYMPHATICS: No palpable cervical or supraclavicular adenopathy. NEUROLOGICAL: Awake and alert. Motor and sensory grossly within normal limits. Follows commands. Clear speech . Moves all extremities. PSYCHIATRIC: Cooperative IV line sites with no e.o infection. Assessment & Plan Remarks CMV pneumonitis. MDR Pseudomonas Pneumonia. MRSA pneumonia. Lung abscesses s/p RUL lobectomy. 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 No prior PCP. 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 CT in place. Acute resp failure Pneumothorax : ? post procedure vs spontaneous from bleb leak. HIV on HAART reportedly well controlled with undetectable viral load. High grade leucocytosis (sepsis, ? steroids) Recs: Continue Zosyn IV Continue Zyvox ok to change to oral if fluid overload issues. Start Gancyclovir IV renal dose adjusted. GI consult for EGD and Colonoscopy: CMV esophagitis. CT C/A/P with contrast after GI procedures. dw. RN not to give contrast till after EGD. Jl [facility] lung pathology cw CMV. PCP stain pending. Follow intraop cultures. fu Blood cultures x 2 2D ECHO with no e.o vegetations/endocarditis. Continue HAART per (patient's HIV doctor in [place]) jl Micro requested susceptibilities on Zerbaxa IV, Avycaz IV and Vabomere if available. jl [place]: need to monitor renal function closely. jl Clinical pharmacist: drug interaction with HAART treatment. dw patient in presence of RN and provided education on CMV and Gancyclovir. jl [place] cell:[phone]: discussed CD4 always above 500 per his review of records. Lipodystrophy probably chronic from prior HAART Critical thinking and decision making. Anita Interiano MD Sep 23, 2017 11:11
[2017-09-23] MEDS: LINEZOLID 600 MG PREMIX 300 ML IV SCH ×2 (11:19→21:23)
--- NOTE | 2017-09-23 12:16 | HHI.CCPN ---
Subjective Remarks/Hospital Course 09/16: 47-year-old very pleasant gentleman with past medical history of HIV on HAART meds at home, compliant with medications and followed by Dr. Preston in [place] for almost 30 years ([phone]) presented to [facility] with complaints of cough, shortness of breath, and fatigue. He also had a mild fever and chills. The CT of the chest at [facility] revealed extensive large cavitary pneumonia, multiple blebs suggestive of likely COPD and bullous emphysema and secondary infected blebs. Initial sputum revealed presumptive Pseudomonas aeruginosa, resistant to Levaquin, sensitive to Zosyn. Patient underwent needle aspiration of one of the cavitary lesions. The procedure was complicated by development of pneumothorax and subcutaneous emphysema with continues air leak. For this the patient is transferred to [facility] for higher level of care and possible CT surgery consultation. 09/17: Remains on partial rebreather. Persistent large air leak noted from right sided chest tube. Complains of chest pain off and on. 09/18 Patient is on partial rebreather with sats 98-100%. Afebrile. 09/19. Complains of cough with sputum production and states he remains sitting upright because dyspneic when flat. On NC. Intermittent air leak persists with R sided chest tube. Some pain at chest tube site. States he was hallucinating after Restoril and never wants to take that again. Subjective 09/20: Requesting viscous lidocaine for scratchy throat. Plan for lobectomy tomorrow 09/21. Requesting general diet. Positive BM 3. Positive air leak right-sided chest tube. Chest x-ray ordered for a.m. 09/21. 09/21 Patient s/p Right Thoracotomy, RUL Lobectomy, Lysis of Adhesions and drainage of Abscess this morning he was extubated in PACU now on 3L. Afebrile. 09/22 No events overnight. On morphine FOUNDATION ENGINEER for pain. Afebrile. 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 Further workup ordered by ID including endoscopy and CT chest abdomen pelvis and ophthalmology consult. C/O pain at chest tube site Objective Vital Signs Date Time Temp Pulse Resp B/P (MAP) Pulse Ox O2 Delivery O2 Flow Rate FiO2 09/23/17 08:46 98 Nasal Cannula 2.00 09/23/17 06:00 93 09/23/17 04:00 97.9 15 122/65 (84) 09/22/17 21:25 21 Intake and Output 09/23/17 09/23/17 09/24/17 08:00 16:00 00:00 Intake Total 1242 ml Output Total 1135 ml Balance 107 ml Result Diagram: 09/22/17 0335 09/22/17 0335 Imaging Last Impressions Chest X-Ray 09/22/17 0500 Signed Impressions: Service Date/Time: Friday, September 22, 2017 03:36 - CONCLUSION: 1. Stable right apical chest tube without significant pneumothorax. Charli Linder MD Chest CT 09/17/17 0000 Signed Impressions: Service Date/Time: August 21:03 - CONCLUSION: 1. Large cavitary mass measuring 10.3 x 12.9 cm in the right apex which appears parenchymal and is consistent with cavitary lung mass, abscess or secondarily infected. There are additional bilateral subcentimeter cavitary lung nodules. 2. Well-positioned apical right anterior chest tube with moderate residual right-sided inferior hydropneumothorax. Patient may benefit from second inferiorly placed chest tube. 3. Extensive subcutaneous emphysema and pneumomediastinum. Charli Linder MD Objective Remarks GENERAL: 47-year-old male resting in bed in no acute distress SKIN: Warm and dry, adequately perfused. HEAD: Normocephalic. EYES: No scleral icterus. No injection or drainage. NECK: Supple, trachea midline. No JVD or lymphadenopathy. CARDIOVASCULAR: RRR. S1, S2 no S4. Without murmurs clicks, rubs RESPIRATORY: Breath sounds more distant on right mid lung field with rhonchi RUL. No wheeze or rales. Subcutaneous emphysema present right anterior chest wall bilaterally. Right sided chest tube in place -20 cm suction minimal serosanguineous fluid in chamber. GASTROINTESTINAL: Abdomen soft, non-tender, scaphoid, bowel sounds present. MUSCULOSKELETAL: No significant peripheral edema. NEURO EXAM: Awake alert oriented 3, cranial nerves grossly intact. Moves all extremities spontaneously without apparent focal deficit. A/P Assessment and Plan Neuro/Psych: Monitor neuro status On Morphine FOUNDATION ENGINEER for pain. Acetaminophen 650 mg by mouth every 6 hours when necessary fever/pain 1-2 Hydrocodone/acetaminophen 10/325 one tablet q4 hours prn pain 3-10. Hydromorphone 1 mg IV every 4 hours as needed for breakthrough pain Pulm: Hypoxia with respiratory insufficiency secondary to: Right upper lobe Cavitary lung mass Right hydro Pneumothorax following CT guided needle aspirate of RUL at outside facility 09/14/17. Per procedure note at outside hospital 6 mLs of thick aspirate was obtained and sent to lab for analysis. Chest tube placed OSH ( [facility]) for iatrogenic PTX 09/13 Subcutaneous emphysema Pseudomonas pneumonia MDRO and MRSA pneumonia CMV pneumonitis COPD Ongoing tobaccoism s/p Right Thoracotomy, RUL Lobectomy, Lysis of Adhesions and drainage of Abscess by Dr. Camacho Pathology showing CMV pneumonitis, ganciclovir started by ID Continue with oxygen keep sat >92% Albuterol/ipratropium aerosols every 8 hours with albuterol aerosols every 2 hours as needed Dyspnea Pulmonology (Dr. Gregg Minor) and CTS (Dr. Camacho) following. Monitor CT drainage-CT surgery may remove chest tube today 09/14 - Path report from [facility] states " right lung abscess fluid for cytologic exam with smear and cellblock: Abscess contents, negative for malignant cells" CV: Hyperlipidemia Monitor HR and BP keep MAP>65mmHg 2D echo 09/18/17 - ejection fraction 50-55%. Normal RV function. No vegetations. Home Pitavastatin 2 mg daily converted to pravastatin 40 mg by mouth daily. GI: Hypoalbuminemia On PO diet Change IVF NS@75ml/hr Famotidine for GI prophylaxis Docusate sodium/senna 1 tablet twice a day for bowel regimen FEN/RENAL/: Chronic severe protein energy malnutrition Hypoalbuminemia Mild hyponatremia Hypophosphatemia Monitor renal function, I/O's, electrolytes replacement per protocol ID: HIV CMV pneumonitis Sepsis Cavitary lung mass/abscess Pseudomonas MDRO/MRSA pneumonia MRSA nasal swab positive ID has continued HAART regimen per Dr. Preston (patient's HIV/ID physician in [facility]). Patient taking on meds Emtricitabine 200 grams/Tenofovir 25 grams daily,Atazanavir 300 milligrams/Cobicistat 150 mg po daily. Antibiotics per ID, Dr. Interiano: Zyvox, Zosyn, fluconazole. Monitor for signs of infections ( Fever, WBC) Pathology showing CMV pneumonitis, ganciclovir started by ID 09/23/17 Mupirocin twice a day for universal discoloration protocol [facility] From [facility]: Gram stain oral fluid: Few gram-negative bacilli, many white blood cells on final report. Right lung abscess deep culture with Pseudomonas sensitive to gentamicin and tobramycin. States sensitive to piperacillin/tazobactam... BUCK abscess fluid 64 ? defer to ID. AFB and fungal smear negative, culture pending. Microbiology: Blood cultures - 09/17 - no growth Sputum - 09/18 - Pseudomonas pneumonia MDRO positive, MRSA Urine Legionella and pneumococcal antigen -09/18 Heme: Leukocytosis Normocytic anemia Monitor CBC. Follow trends Endo: Hyperglycemia critical illness Bedside glucose every before meals/at bedtime with low-dose sliding scale as indicated DVT GI prophylaxis SCDs/ heparin 5000 subcutaneous every 8 hours -Famotidine for stress ulcer prophylaxis ACCESS: PIV Level 2 Costa Brambila MD Sep 23, 2017 12:16
[2017-09-23] MEDS: SODIUM CHLOR 0.9% 1000 ML INJ 1,000 ML IV SCH (12:27)
[2017-09-23] MEDS: HYDROmorphone HCL PF 2 MG/ML VIAL IV PRN ×3 (12:51→21:23)
--- NOTE | 2017-09-23 13:06 | PD.CAR.PN ---
CVT Progress Note Subjective/Hospital Course: A 47-year-old male, history of HIV positive on heart medication HAART for the last 30 years with a doctor in [facility] who apparently is compliant with his medications with an undetectable viral load, CD-4 1200 He was treated recently with Levaquin for outpatient pneumonia. He presented to [facility] on the , found to have cavitary pneumonia and, because of his HIV, they had also found that his CT scan showed an extensive large cavitary pneumonia, multiple blebs suggested of likely COPD, bullous emphysema and secondary infected blebs. The patient underwent needle aspiration of one of the cavitary lesions and it was complicated by development of a large hemothorax and subcutaneous emphysema with continuous air leak. They transferred the patient to our facility for higher care and for cardiovascular surgery consultation. They consulted Infectious Disease for evaluation of Pseudomonas pneumonia in a patient with preexisting blebs. 09/18 pt still has intermittent air leak / now on 4 liter nasal cannula sitting up in bed, still scheduled for tentative surgery on Thursday 09/21 surgery: 1. Right Posterolateral Muscle Sparing Thoracotomy 2. Right Upper Lobectomy 3. Lysis of Adhesions 4. 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 , despite [employer] refusing to get OOB, wants more pain meds/ despite breakthrough meds pleural fluid + pseudomonas ID following will leave chest tube in , needs to be OOB to facilitate drainage 09/[address] and [address] chest today still has some old bloody drainage / will leave chest tube in today Pt needs to get OOB / orders written and discussed with nurse Objective: Vital Signs Date Time Temp Pulse Resp B/P (MAP) Pulse Ox O2 Delivery O2 Flow Rate FiO2 09/23/17 08:46 98 Nasal Cannula 2.00 09/23/17 06:00 93 09/23/17 04:00 97.9 102 15 122/65 (84) 94 09/23/17 04:00 102 09/23/17 02:00 93 09/23/17 00:00 97.9 99 20 116/65 (82) 97 09/23/17 00:00 99 09/22/17 22:00 103 09/22/17 22:00 27 09/22/17 22:00 27 09/22/17 21:25 97 21 2/27/18 20:04 20 09/22/17 20:00 98.4 101 27 117/66 (83) 98 09/22/17 20:00 101 09/22/17 19:00 105 09/22/17 18:00 93 09/22/17 18:00 21 09/22/17 17:00 100 32 96 09/22/17 17:00 100 09/22/17 16:01 100 09/22/17 16:01 100 23 111/59 (76) 96 09/22/17 16:00 98.6 102 27 96 09/22/17 16:00 102 09/22/17 15:48 21 09/22/17 14:00 97 09/22/17 14:00 20 09/22/17 13:13 20 Labs: Laboratory Tests Test 09/23/17 12:06 Result Diagram: 09/22/17 0335 09/22/17 0335 (1) COPD (chronic obstructive pulmonary disease) (2) Cavitary lesion of lung (3) HIV disease (4) Pneumothorax on right Plan: right thoracotomy right upper lobectomy on 09/21 leave chest tube in , pain control pulm toileting OOB . + CMV pneumonitis ID following Rosemary Montes Sep 23, 2017 13:06
[2017-09-23] MEDS: PCA - TOTAL MG MORPHINE DELIVERED PER SHIFT SCH ×2 (13:53→21:30)
[2017-09-23 14:05] LABS: HEPATITIS A AB IGM NEGATIVE (NEGATIVE); HEPATITIS B CORE AB IGM NEGATIVE (NEGATIVE); HEPATITIS B SURFACE ANTIGEN NEGATIVE (NEGATIVE); HEPATITIS C AB IgG NEGATIVE (NEGATIVE)
--- NOTE | 2017-09-23 16:22 | PD.CONS ---
HPI History of Present Illness This is a 47 year old male with HIV on HAART who was admitted to [facility] from [place] after being found to have large cavitary PNA with infected blebs s/p needle aspiration and developed PTX and SQ emphysema. He is s/p thoracotomy, RUL lobectomy, ALONZO, drainage abscess. Pathology CMV pneumonitis. GI has been consulted for dysphagia, CMV lung, ID requesting EGD and colonoscopy to assess extent of CMV. Pt has never had EGD or colonoscopy. he has no GI complaints other than that he is not terribly mobile and is concerned about doing bowel prep today in case he cannot make it to commode. (Itzel Bland) PFSH Past Medical History HIV CMV emphysema Past Surgical History back surgery neck surgery (Itzel Bland) Coded Allergies: No Known Allergies (Unverified , 09/16/17) Family History no family hx colon ca Social History 1/2ppd smoker denies etoh or illicit drug use (Itzel Bland) Review of Systems Constitutional: COMPLAINS OF: Fatigue, Weight loss Endocrine: DENIES: Polydipsia Eyes: DENIES: Blurred vision Ears, nose, mouth, throat: DENIES: Hearing loss Respiratory: COMPLAINS OF: Cough, Shortness of breath Cardiovascular: DENIES: Chest pain Gastrointestinal: DENIES: Abdominal pain, Black stools, Bloody stools, Nausea, Vomiting Genitourinary: DENIES: Urinary incontinence Musculoskeletal: DENIES: Joint pain Integumentary: DENIES: Abnormal pigmentation Hematologic/lymphatic: DENIES: Bruising Immunologic/allergic: DENIES: Eczema Neurologic: DENIES: Abnormal gait Psychiatric: DENIES: Confusion (Itzel Bland) GI Exam Vitals I&O Vital Signs Date Time Temp Pulse Resp B/P (MAP) Pulse Ox O2 Delivery O2 Flow Rate FiO2 09/23/17 15:30 99 30 131/82 (98) 09/23/17 15:00 105 27 127/73 (91) 88 09/23/17 14:30 100 26 111/76 (88) 99 09/23/17 14:00 98 20 120/85 (97) 79 09/23/17 13:53 24 09/23/17 13:53 24 09/23/17 13:30 98 21 116/68 (84) 09/23/17 13:00 98 26 120/72 (88) 86 09/23/17 12:30 92 23 124/81 (95) 95 09/23/17 12:00 97.9 96 20 114/61 (78) 09/23/17 11:30 93 20 122/75 (91) 09/23/17 11:00 98 24 124/80 (95) 91 09/23/17 10:30 96 22 128/81 (97) 09/23/17 10:00 103 22 129/75 (93) 09/23/17 09:30 103 25 120/70 (87) 09/23/17 09:00 112 26 126/89 (101) 100 09/23/17 08:46 98 Nasal Cannula 2.00 09/23/17 08:30 108 25 119/75 (90) 100 09/23/17 08:00 98.0 97 23 120/74 (89) 83 09/23/17 06:00 93 09/23/17 04:00 97.9 102 15 122/65 (84) 94 09/23/17 04:00 102 09/23/17 02:00 93 09/23/17 00:00 97.9 99 20 116/65 (82) 97 09/23/17 00:00 99 09/22/17 22:00 103 09/22/17 22:00 27 09/22/17 22:00 27 09/22/17 21:25 97 21 09/22/17 20:04 20 09/22/17 20:00 98.4 101 27 117/66 (83) 98 09/22/17 20:00 101 09/22/17 19:00 105 09/22/17 18:00 93 09/22/17 18:00 21 09/22/17 17:00 100 32 96 09/22/17 17:00 100 09/22/17 16:01 100 09/22/17 16:01 100 23 111/59 (76) 96 I/O 09/22/17 09/22/17 09/22/17 09/23/17 09/23/17 09/23/17 07:00 15:00 23:00 07:00 15:00 23:00 Intake Total 2300 ml 875 ml 3660 ml 1242 ml Output Total 935 ml 720 ml 1135 ml Balance 1365 ml 875 ml 2940 ml 107 ml Intake Oral 500 ml 2160 ml 300 ml IV Total 1800 ml 875 ml 1500 ml 942 ml Output Urine Total 875 ml 650 ml 1075 ml Chest Tube Drainage Total 60 ml 70 ml 60 ml # Voids 1 # Bowel Movements 1 1 Imaging Last Impressions Chest X-Ray 09/22/17 0500 Signed Impressions: Service Date/Time: Friday, September 22, 2017 03:36 - CONCLUSION: 1. Stable right apical chest tube without significant pneumothorax. Charli Linder MD Chest CT 09/17/17 0000 Signed Impressions: Service Date/Time: August 21:03 - CONCLUSION: 1. Large cavitary mass measuring 10.3 x 12.9 cm in the right apex which appears parenchymal and is consistent with cavitary lung mass, abscess or secondarily infected. There are additional bilateral subcentimeter cavitary lung nodules. 2. Well-positioned apical right anterior chest tube with moderate residual right-sided inferior hydropneumothorax. Patient may benefit from second inferiorly placed chest tube. 3. Extensive subcutaneous emphysema and pneumomediastinum. Charli Linder MD Laboratory Test 09/22/17 18:26 09/23/17 12:06 C-Reactive Protein 16.00 MG/DL Hepatitis A IgM Antibody NEGATIVE Hepatitis B Surface Antigen NEGATIVE Hepatitis B Core IgM Antibody NEGATIVE Hepatitis C Antibody NEGATIVE Date/Time Source Procedure Growth Status 09/23/17 12:06 Blood Peripheral Blood Fungal Culture Pending Received 09/23/17 12:06 Blood Peripheral Blood Fungal Culture Pending Received 09/18/17 11:45 Sputum Expectorated Sputum Gram Stain - Final Complete 09/18/17 11:45 Sputum Culture - Final Pseudomonas Aeruginosa Multi-Drug Resistant S. Aureus Mrsa Complete 09/18/17 11:56 Urine Catheterized Urine Legionella Antigen - Final PRESUMPTIVE NEGATIVE FOR LEGIONELLA P... Complete 09/18/17 11:56 Urine Catheterized Urine Streptococcus pneumoniae Antigen (M - Final PRESUMPTIVE NEGATIVE FOR STREPTOCOCCU... Complete 09/21/17 09:00 Abscess Lung Fungal Smear - Final NO FUNGAL ELEMENTS SEEN. Resulted 09/21/17 09:00 Abscess Lung Fungal Culture Pending Resulted Physical Examination GEN: thin HEENT: PERRL; normocephalic; atraumatic; no jaundice. CHEST: rhonchi CARDIAC: RRR ABDOMEN: Soft, nondistended, nontender; no hepatosplenomegaly; bowel sounds are present in all four quadrants. EXTREMITIES: No clubbing, cyanosis, or edema. SKIN: Normal; no rash; no jaundice. SIGNAL MAINTAINER: No focal deficits; alert and oriented times three. (Itzel Bland) Assessment and Plan Plan ASSESSMENT - 47 yo male with HIV on HAART found to have CMV in lung, GI consulted for EGD and colonoscopy to assess if CMV disseminated to other organs. did not offer any GI complaints during my eval but per EMR he is having some dysphagia and scratchy throat. never had EGD or colonoscopy. At this time he does not want to do bowel prep and colonoscopy, he is recently s/p thoracotomy and lobectomy. He is agreeable to EGD and colonoscopy in a few days. ID is following, ophthalmology consult pending. - anemia - normocytic anemia, likely multifactorial, r/t recent surgery - leukocytosis PLAN - EGD & colonoscopy, thursday tentatively - await CT abd and chest - monitor labs - continue protonix - antivirals per ID - supportive care - further recs to follow pt seen by myself and Dr Gale and this note on his behalf (Itzel Bland) Plan Examined, agree with above-noted, patient will need upper endoscopy and colonoscopy but he doesn't feel that he is able to do it now he wanted to wait for few days, I discussed the case with infectious disease data integrity consultant and she is aware (Bobby Gale MD) Itzel Bland Sep 23, 2017 16:22 Bobby Gale MD Sep 23, 2017 19:32
[2017-09-23] MEDS: GANCICLOVIR IV SCH (17:23)
[2017-09-23] MEDS: SODIUM CHLORIDE 0.9% IV SCH (17:23)
[2017-09-23] MEDS: DOCUSATE CALCIUM 240 MG CAP PO SCH (19:46)
[2017-09-23] MEDS: PANTOPRAZOLE SOD 40 MG DELAYED RELEASE TAB PO SCH (19:54)
[2017-09-23] MEDS ORDERED: IOHEXOL 350 MG/ML 10 ML VIAL (for RAD DIAG) IVCONTRAST ONE (20:43)
--- NOTE | 2017-09-23 22:48 | RADRPT ---
EXAM DATE/TIME: 09/23/2017 20:41 [facility] COMPARISON: CHEST SINGLE AP, September 22, 2017, 3:36. INDICATIONS : Patient complains of abdominal pain. IV CONTRAST: 75 cc Omnipaque 350 (iohexol) IV ORAL CONTRAST: Prescribed oral contrast ingested. RADIATION DOSE: 9.81 CTDIvol (mGy) MEDICAL HISTORY : HIV. Emphysema. SURGICAL HISTORY : Thoracotomy RUL ENCOUNTER: Initial ACUITY: 1 day PAIN SCALE: 6/10 LOCATION: Right upper quadrant TECHNIQUE: Volumetric scanning of the abdomen and pelvis was performed. Using automated exposure control and ad justment of the mA and/or kV according to patient size, radiation dose was kept as low as reasonably achievable to obtain optimal diagnostic quality images. DICOM format image data is available electro nically for review and comparison. FINDINGS: There is a small residual right-sided pneumothorax. Right chest tube is noted. Subcutaneous emphysema is noted along the right chest wall and extending inferiorly along the right abdominal wall. Tiny bi lateral pleural effusions are noted. Compressive atelectasis is noted within the left posterior lung base. Patchy infiltrate is noted within the lingula of the left upper lobe. The liver, spleen, pancreas, gallbladder, adrenal glands and kidneys are unremarkable. The abdominal aorta and inferior vena cava are unremarkable. Some ascites is noted within the abdomen and pelvis. N o bowel obstruction is noted. The prostate gland is normal size but contains central calcifications. Degenerative changes and scoliosis of the lumbar spine are noted. CONCLUSION: 1. Small residual right-sided pneumothorax. 2. Subcutaneous emphysema extending along the right chest wall and inferiorly along the right abdomin al wall. 3. Small bilateral pleural effusions. 4. Patchy infiltrate within the lingula of the left upper lobe raising the possibility of focal pneum onia. Clinical correlation is recommended. 5. Compressive atelectasis within the left posterior lung. 6. Some ascites within the abdomen and pelvis. 7. Degenerative changes and scoliosis of the lumbar spine. Claudio Abreu MD on September 23, 2017 at 22:41 Board Certified Radiologist. This report was verified electronically.
[2017-09-24] VITALS (22 sets, daily range): BP systolic 109–137; BP diastolic 64–87; PULSE 89–110; RESP 9–36; TEMP 97.1–99.9; O2SAT 80–100
[2017-09-24] MEDS: HYDROmorphone HCL PF 2 MG/ML VIAL IV PRN ×3 (01:19→13:50)
[2017-09-24] MEDS ORDERED: IOHEXOL 350 MG/ML 10 ML VIAL (for RAD DIAG) IVCONTRAST ONE (01:50)
--- NOTE | 2017-09-24 02:16 | RADRPT ---
EXAM DATE/TIME: 09/24/2017 01:36 [facility] COMPARISON: CT THORAX W & W/O CONTRAST, September 17, 2017, 21:03. CHEST SINGLE AP, September 22, 2017, 3:36. INDICATIONS : Shortness of breath. Evaluate residual disease and pneumonia. IV CONTRAST: 45 cc Omnipaque 350 (iohexol) IV RADIATION DOSE: 5.51 CTDIvol (mGy) MEDICAL HISTORY : Emphysema. HIV. SURGICAL HISTORY : Chest tube. Right thoracotomy. ENCOUNTER: Subsequent ACUITY: 1 week PAIN SCALE: 0/10 LOCATION: chest TECHNIQUE: Volumetric scanning of the chest was performed. Using automated exposure control and adjustment of t he mA and/or kV according to patient size, radiation dose was kept as low as reasonably achievable to obtain optimal diagnostic quality images. DICOM format image data is available electronically for review and comparison. Follow-up recommendations for detected pulmonary nodules are based at a minimum on nodule size and pa tient risk factors according to Fleischner Society Guidelines. FINDINGS: LUNGS: Interval right-sided thoracotomy with right upper lobectomy. Central airspace consolidation in the ri ght middle lobe. Previously demonstrated small cavitary lesions in the right lower lobe have signific antly improved and nearly resolved. There has been interval progression of interstitial or and ground glass opacities in the left upper lobe with enlargement of 2 small cavitary lung nodules anteriorly i n 10 mm in comparison to 4 mm on prior exam and 5 mm in comparison to 4 mm on prior exam. Redemonstra tion of left upper lobe centrilobular emphysema. There is a small ovoid 6 mm nodule in the superior s egment of the left lower lobe which appears new since prior exam. Minimal bibasilar airspace consolid ation, likely atelectasis. PLEURA: Small right hydropneumothorax with stable right apical chest tube in place. Trace left pleural effusi on. MEDIASTINUM: Significantly improved pneumomediastinum. Central pulmonary arteries are patent. Heart is grossly unr emarkable. No significant new adenopathy. AXILLAE: Stable extensive subcutaneous soft tissue emphysema. SKELETAL: No abnormal lytic or blastic bony lesions. MISCELLANEOUS: The visualized upper abdominal organs demonstrate no acute abnormality. CONCLUSION: 1. Interval right-sided thoracotomy with right upper lobectomy. 2. Nearly resolved small subcentimeter cavitary nodules in the right lower lobe but minimal progressi on of 2 small cavitary left upper lobe nodule and development of a single 6 mm solid nodule in the chun perior segment of the left lower lobe. 3. Mild interval progression of interstitial and groundglass opacities in the left upper lobe consist ent with infectious/inflammatory process. 4. Right apical chest tube in place with small right hydropneumothorax. Prominent but stable soft tis анна subcutaneous emphysema. 5. Trace left pleural effusion. Charli Linder MD on September 24, 2017 at 2:04 Board Certified Radiologist. This report was verified electronically.
[2017-09-24] MEDS: RESP: ALBUTEROL 2.5 MG/3 ML NEB (SCH) NEB ×4 (03:10→21:07)
[2017-09-24] MEDS: CHLORHEXIDINE GLUCONATE 2 % 1 PACK (2 CLOTHS) TOP SCH (03:44)
[2017-09-24] MEDS: ACETAMINOPHEN/HYDROcodone 325 MG/5 MG TAB PO PRN ×6 (03:47→23:21)
[2017-09-24] MEDS: HEPARIN SODIUM - SQ 10,000 UNITS/ML VIAL SQ SCH ×3 (05:08→22:43)
[2017-09-24] MEDS: PCA - TOTAL MG MORPHINE DELIVERED PER SHIFT SCH ×2 (05:08→12:40)
[2017-09-24] MEDS: SODIUM CHLORIDE 0.9% IV SCH ×2 (05:09→17:48)
[2017-09-24] MEDS: PIPERACIL-TAZO 4.5 GM PREMIX 100 ML IV SCH (05:09)
[2017-09-24] MEDS: CLOTRIMAZOLE 10 MG TROCHE BUCCAL SCH ×5 (05:09→22:43)
[2017-09-24] MEDS: GANCICLOVIR IV SCH ×2 (05:09→17:48)
[2017-09-24] MEDS: INSULIN NovoLIN REGULAR SUPPLEMENTAL SCALE SQ SCH ×2 (08:00→12:00)
[2017-09-24] MEDS: DESCOVY PO SCH (08:03)
[2017-09-24] MEDS: FAMOTIDINE 20 MG TAB PO SCH ×2 (08:03→20:10)
[2017-09-24] MEDS: PRAVASTATIN SOD 40 MG TAB PO SCH (08:03)
[2017-09-24] MEDS: FLUCONAZOLE 200 MG TAB PO SCH (08:03)
[2017-09-24] MEDS: EVOTAZ PO SCH (08:03)
[2017-09-24] MEDS: MUPIROCIN 2% OINT 1 APPLIC/GM SYR EACH NARE SCH ×2 (08:03→20:09)
[2017-09-24] MEDS: SODIUM CHLORIDE 0.9% FLUSH 10 ML FLUSH IV FLUSH SCH ×2 (08:04→20:10)
--- NOTE | 2017-09-24 09:45 | HHI.CCPN ---
Subjective Remarks/Hospital Course 09/16: 47-year-old very pleasant gentleman with past medical history of HIV on HAART meds at home, compliant with medications and followed by Dr. Preston in [place] for almost 30 years ([phone]) presented to [facility] with complaints of cough, shortness of breath, and fatigue. He also had a mild fever and chills. The CT of the chest at [facility] revealed extensive large cavitary pneumonia, multiple blebs suggestive of likely COPD and bullous emphysema and secondary infected blebs. Initial sputum revealed presumptive Pseudomonas aeruginosa, resistant to Levaquin, sensitive to Zosyn. Patient underwent needle aspiration of one of the cavitary lesions. The procedure was complicated by development of pneumothorax and subcutaneous emphysema with continues air leak. For this the patient is transferred to [facility] for higher level of care and possible CT surgery consultation. 09/17: Remains on partial rebreather. Persistent large air leak noted from right sided chest tube. Complains of chest pain off and on. 09/18 Patient is on partial rebreather with sats 98-100%. Afebrile. 09/19. Complains of cough with sputum production and states he remains sitting upright because dyspneic when flat. On NC. Intermittent air leak persists with R sided chest tube. Some pain at chest tube site. States he was hallucinating after Restoril and never wants to take that again. Subjective 09/20: Requesting viscous lidocaine for scratchy throat. Plan for lobectomy tomorrow 09/21. Requesting general diet. Positive BM 3. Positive air leak right-sided chest tube. Chest x-ray ordered for a.m. 09/21. 09/21 Patient s/p Right Thoracotomy, RUL Lobectomy, Lysis of Adhesions and drainage of Abscess this morning he was extubated in PACU now on 3L. Afebrile. 09/22 No events overnight. 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 Afebrile. 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 Further workup ordered by ID including endoscopy and CT chest abdomen pelvis and ophthalmology consult. C/O pain at chest tube site : On 4 L nasal cannula. Awaiting EGD and colonoscopy. Chest tube to be removed per my discussion with CT surgery [employer]. Patient refusing bowel prep today and wishes to defer colonoscopy till tomorrow. Objective Vital Signs Date Time Temp Pulse Resp B/P (MAP) Pulse Ox O2 Delivery O2 Flow Rate FiO2 09/24/17 08:00 97.1 103 26 113/69 (84) 09/24/17 07:33 95 Nasal Cannula 2.00 Intake and Output 09/24/17 09/24/17 09/25/17 08:00 16:00 00:00 Intake Total 555.4 ml Output Total 1185 ml Balance -629.6 ml Result Diagram: 09/22/17 0335 09/22/17 0335 Imaging Last Impressions Chest X-Ray 09/22/17 0500 Signed Impressions: Service Date/Time: Friday, September 22, 2017 03:36 - CONCLUSION: 1. Stable right apical chest tube without significant pneumothorax. Charli Linder MD Chest CT 09/17/17 0000 Signed Impressions: Service Date/Time: August 21:03 - CONCLUSION: 1. Large cavitary mass measuring 10.3 x 12.9 cm in the right apex which appears parenchymal and is consistent with cavitary lung mass, abscess or secondarily infected. There are additional bilateral subcentimeter cavitary lung nodules. 2. Well-positioned apical right anterior chest tube with moderate residual right-sided inferior hydropneumothorax. Patient may benefit from second inferiorly placed chest tube. 3. Extensive subcutaneous emphysema and pneumomediastinum. Charli Linder MD Objective Remarks GENERAL: 47-year-old male resting in bed in no acute distress SKIN: Warm and dry, adequately perfused. HEAD: Normocephalic. EYES: No scleral icterus. No injection or drainage. NECK: Supple, trachea midline. No JVD or lymphadenopathy. CARDIOVASCULAR: RRR. S1, S2 no S4. Without murmurs clicks, rubs RESPIRATORY: Breath sounds more distant on right mid lung field with rhonchi RUL. No wheeze or rales. Subcutaneous emphysema present right anterior chest wall bilaterally. Right sided chest tube in place -20 cm suction minimal serosanguineous fluid in chamber. GASTROINTESTINAL: Abdomen soft, non-tender, scaphoid, bowel sounds present. MUSCULOSKELETAL: No significant peripheral edema. NEURO EXAM: Awake alert oriented 3, cranial nerves grossly intact. Moves all extremities spontaneously without apparent focal deficit. A/P Assessment and Plan Neuro/Psych: Monitor neuro status On Morphine GLASS TECHNOLOGIST for pain. Acetaminophen 650 mg by mouth every 6 hours when necessary fever/pain 1-2 Hydrocodone/acetaminophen 10/325 one tablet q4 hours prn pain 3-10. Hydromorphone 1 mg IV every 4 hours as needed for breakthrough pain Pulm: Hypoxia with respiratory insufficiency secondary to: Right upper lobe Cavitary lung mass Right hydro Pneumothorax following CT guided needle aspirate of RUL at outside facility 09/14/17. Per procedure note at outside hospital 6 mLs of thick aspirate was obtained and sent to lab for analysis. Chest tube placed OSH ( [facility]) for iatrogenic PTX 09/13 Subcutaneous emphysema Pseudomonas pneumonia MDRO and MRSA pneumonia CMV pneumonitis COPD Ongoing tobaccoism s/p Right Thoracotomy, RUL Lobectomy, Lysis of Adhesions and drainage of Abscess by Dr. Camacho Pathology showing CMV pneumonitis, ganciclovir started by ID on 09/23 Continue with oxygen keep sat >92% Albuterol/ipratropium aerosols every 8 hours with albuterol aerosols every 2 hours as needed Dyspnea Pulmonology (Dr. Gregg Minor) and CTS (Dr. Camacho) following. Monitor CT drainage-CT surgery may remove chest tube today 09/14 - Path report from [facility] states " right lung abscess fluid for cytologic exam with smear and cellblock: Abscess contents, negative for malignant cells" CV: Hyperlipidemia Monitor HR and BP keep MAP>65mmHg 2D echo 09/18/17 - ejection fraction 50-55%. Normal RV function. No vegetations. Home Pitavastatin 2 mg daily converted to pravastatin 40 mg by mouth daily. GI: Hypoalbuminemia On PO diet Change IVF NS@75ml/hr Famotidine for GI prophylaxis Docusate sodium/senna 1 tablet twice a day for bowel regimen FEN/RENAL/: Chronic severe protein energy malnutrition Hypoalbuminemia Mild hyponatremia Hypophosphatemia Monitor renal function, I/O's, electrolytes replacement per protocol ID: HIV CMV pneumonitis Sepsis Cavitary lung mass/abscess Pseudomonas MDRO/MRSA pneumonia MRSA nasal swab positive ID has continued HAART regimen per Dr. Preston (patient's HIV/ID physician in [facility]). Patient taking on meds Emtricitabine 200 grams/Tenofovir 25 grams daily,Atazanavir 300 milligrams/Cobicistat 150 mg po daily. Antibiotics per ID, Dr. Interiano: Zyvox, Zosyn switched to zerbaxa 09/24, fluconazole. Pathology showing CMV pneumonitis, ganciclovir started by ID 09/23/17 Mupirocin twice a day for universal decolonization protocol [facility] From [facility]: Gram stain oral fluid: Few gram-negative bacilli, many white blood cells on final report. Right lung abscess deep culture with Pseudomonas sensitive to gentamicin and tobramycin. States sensitive to piperacillin/tazobactam... BUCK abscess fluid 64 ? defer to ID. AFB and fungal smear negative, culture pending. Microbiology: Blood cultures 2 - 09/17 - no growth Sputum - 09/18 - Pseudomonas pneumonia MDRO positive, MRSA Urine Legionella and pneumococcal antigen -09/18 Heme: Leukocytosis Normocytic anemia Monitor CBC. Follow trends Endo: Hyperglycemia critical illness Bedside glucose every before meals/at bedtime with low-dose sliding scale as indicated DVT GI prophylaxis SCDs/ heparin 5000 subcutaneous every 8 hours -Famotidine for stress ulcer prophylaxis ACCESS: PIV D/w CTS [employer], D/W ASSISTANT ELEMENTARY TEACHER, D/W patient at bedside. Level 3 Philip Interiano MD Sep 24, 2017 09:45
[2017-09-24] MEDS: CEFTOLOZANE-TAZOBACTAM INJ 1,500 MG in SODIUM CHLORIDE 0.9% INJ 100 ML IV SCH ×2 (09:59→16:35)
--- NOTE | 2017-09-24 10:36 | HHI.IDPN ---
Subjective Subjective Remarks is a 47 y/o CM with PMHx of HIV on HAART for past 30 years per in [place]. I could not reach him at number provided [phone] will attempt to call him when more info available from [facility]. Info from [facility] reviewed, no culture micro data available. Reviewed hospitalist and ID notes and following information obtained so far. Patient is reportedly compliant with HIV meds with undetectable viral load and CD4 unknown. Patient reports to me that he was being treated with oral levaquin as outpatient for Pneumonia. Despite being treated for Pneumonia he had chest pain. When he presented to [facility] with complaints of cough, shortness of breath, and fatigue. He also had a mild fever and chills. The CT of the chest at [facility] revealed extensive large cavitary pneumonia, multiple blebs suggestive of likely COPD and bullous emphysema and secondary infected blebs. Patients PCP status is not known at present time and if this bleb is as a result of COPD or PCP related bullae. Initial sputum revealed presumptive Pseudomonas aeruginosa, resistant to Levaquin, sensitive to Zosyn. Patient underwent needle aspiration of one of the cavitary lesions. The procedure was complicated by development of pneumothorax and subcutaneous emphysema with continues air leak. Post procedure patient developed swelling around the neck and therefore it appears patient was transferred to [facility] for higher level of care and possible CT surgery consultation. ID is consulted for evaluation and Mment of Pseudomonas Pneumonia in a patient with preexisiting bleb. Overnight events reviewed. No fevers No rash growing PSAE and MRSA from sputum clx. CT in place with sanguinous discharge. Antibiotics zerbaxa zyvox Gancyclovir Lines Line sites with no e.o infection Past Medical History reviewed Allergies: Coded Allergies: No Known Allergies (Unverified , 09/16/17) Objective . Vital Signs Date Time Temp Pulse Resp B/P (MAP) Pulse Ox O2 Delivery O2 Flow Rate FiO2 09/24/17 08:00 97.1 103 26 113/69 (84) 09/24/17 07:33 95 Nasal Cannula 2.00 09/24/17 07:30 96 24 122/80 (94) 84 09/24/17 07:00 89 9 135/73 (93) 95 09/24/17 06:20 13 09/24/17 06:00 101 09/24/17 05:08 26 09/24/17 04:00 108 09/24/17 04:00 97.7 108 17 122/76 (91) 99 09/24/17 02:00 106 09/24/17 00:00 97.5 98 18 109/64 (79) 94 09/24/17 00:00 98 09/23/17 22:19 22 09/23/17 22:00 100 09/23/17 21:30 22 09/23/17 21:30 22 09/23/17 21:25 22 09/23/17 20:04 98 Nasal Cannula 2.00 09/23/17 20:00 93 09/23/17 20:00 98.2 93 28 122/80 (94) 78 09/23/17 18:30 94 22 116/83 (94) 09/23/17 18:00 92 09/23/17 18:00 92 20 138/78 (98) 09/23/17 17:30 91 26 137/86 (103) 78 09/23/17 17:00 96 28 138/85 (102) 09/23/17 17:00 96 09/23/17 16:30 98 28 130/92 (105) 09/23/17 16:00 97.8 101 29 143/82 (102) 09/23/17 16:00 101 09/23/17 15:30 99 30 131/82 (98) 09/23/17 15:00 105 27 127/73 (91) 88 09/23/17 15:00 108 09/23/17 14:30 100 26 111/76 (88) 99 09/23/17 14:00 98 09/23/17 14:00 98 20 120/85 (97) 79 09/23/17 13:53 24 09/23/17 13:53 24 09/23/17 13:30 98 21 116/68 (84) 09/23/17 13:00 98 26 120/72 (88) 86 09/23/17 13:00 98 09/23/17 12:30 92 23 124/81 (95) 95 09/23/17 12:00 97.9 96 20 114/61 (78) 09/23/17 12:00 96 09/23/17 11:30 93 20 122/75 (91) 09/23/17 11:00 98 09/23/17 11:00 98 24 124/80 (95) 91 09/23/17 10:30 96 22 128/81 (97) . Laboratory Tests Test 09/23/17 12:06 C-Reactive Protein 16.00 MG/DL Microbiology Date/Time Source Procedure Growth Status 09/23/17 12:06 Blood Peripheral Blood Fungal Culture Pending Received 09/23/17 12:06 Blood Peripheral Blood Fungal Culture Pending Received 09/23/17 12:06 Blood Peripheral Mycobacterial Culture Pending Received Imaging Last Impressions Chest X-Ray 09/19/17 0600 Signed Impressions: Service Date/Time: Tuesday, September 19, 2017 08:12 - CONCLUSION: 1. Large cavitary mass with associated soft tissue density occupying much of the right upper lung. This appears to cause some displacement of the trachea at the level of the thoracic inlet towards the left. 2. Right chest tube without a pneumothorax seen on this plain film examination. There continues to be extensive subcutaneous emphysema. 3. Mild right pleural effusion. Kosta Jones MD Chest CT 09/17/17 0000 Signed Impressions: Service Date/Time: August 21:03 - CONCLUSION: 1. Large cavitary mass measuring 10.3 x 12.9 cm in the right apex which appears parenchymal and is consistent with cavitary lung mass, abscess or secondarily infected. There are additional bilateral subcentimeter cavitary lung nodules. 2. Well-positioned apical right anterior chest tube with moderate residual right-sided inferior hydropneumothorax. Patient may benefit from second inferiorly placed chest tube. 3. Extensive subcutaneous emphysema and pneumomediastinum. Charli Linder MD Physical Exam CONSTITUTIONAL/GENERAL: This a thin cachectic patient, in no apparent distress. TUBES/LINES/DRAINS: SKIN: No jaundice, rashes, or lesions. Skin temperature appropriate. Not diaphoretic. EYES: Pupils equal and round and reactive. Extraocular motions intact. No scleral icterus. No injection or drainage. Fundi not examined. ENT: Hearing grossly normal. Nose without bleeding or purulent drainage. Throat without visible erythema, exudates, masses, or lesions. No thrush NECK: Trachea midline. Supple, nontender. No palpable thyroid enlargement or nodularity. CARDIOVASCULAR: Regular rate and rhythm without murmurs, gallops, or rubs. No JVD. Peripheral pulses symmetric. RESPIRATORY/CHEST: Symmetric, unlabored respirations. Clear to auscultation. Breath sounds amphoric to R apex + RUL rhonchi. + increased egophonic (markedly ) R apex CT in place R chest with sanguinous drainage GASTROINTESTINAL: Abdomen soft, non-tender, nondistended. GENITOURINARY: Without palpable bladder distension. MUSCULOSKELETAL: Extremities without clubbing, cyanosis, or edema. No joint tenderness or effusion noted. No calf tenderness. No mottling or clubbing. LYMPHATICS: No palpable cervical or supraclavicular adenopathy. NEUROLOGICAL: Awake and alert. Motor and sensory grossly within normal limits. Follows commands. Clear speech . Moves all extremities. PSYCHIATRIC: Cooperative IV line sites with no e.o infection. Assessment & Plan Remarks CMV pneumonia. MDR Pseudomonas Pneumonia. MRSA pneumonia. Lung abscesses s/p RUL lobectomy. 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 No prior PCP. 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 CT in place. Acute resp failure Pneumothorax : ? post procedure vs spontaneous from bleb leak. HIV on HAART reportedly well controlled with undetectable viral load. High grade leucocytosis (sepsis, ? steroids) Recs: DC Zosyn IV Start Zerbaxa IV (ASP: Worsening pneumonia on Zosyn, MDR PSAE, cannot use Meropenem as resistant in some strains and seizure potential with Gancyclovir) Continue Zyvox change to oral. Continue Gancyclovir IV renal dose adjusted. Follow intraop cultures. Continue HAART per (patient's HIV doctor in [place]) jl Miller: patient defers the GI workup and will prefer to get it done at [facility]. dw patient in presence of RN and : he needs GI workup for CMV esophagitis and colitis. He and partner both dont want it at present time. Will get it done once all IV lines and nasal cannula etc out and he starts walking stronger. He deferred it till he gets back to [place]. jl Abalone Diver and CCM patient wishes to be transferred back to [facility] to complete workup and treatment. CM to provide me door to door salesperson preferrably ID at [place] who will assume care of the patient given his complicated regimen. Critical thinking and decision making. Anita Interiano MD Sep 24, 2017 10:36
--- NOTE | 2017-09-24 10:49 | PD.CONS ---
History of Present Illness Service Ophthalmology Consult Requested By Reason for Consult rule out CMV retinitis Primary Care Physician Unknown Diagnoses: History of Present Illness 47 y/o M with PMHx of HIV on HAART for past 30 years per in [place] CT of the chest at [facility] revealed extensive large cavitary pneumonia. CMV pneumonitis diagnosed s/p biopsy. Ophthalmology consulted to rule out CMV retinitis. Pt states he has no eye complaints. He just had a dilated exam 3 months ago which was normal. Past Family Social History Allergies: Coded Allergies: No Known Allergies (Unverified , 09/16/17) Physical Exam Vital Signs Vital Signs Date Time Temp Pulse Resp B/P (MAP) Pulse Ox O2 Delivery O2 Flow Rate FiO2 09/24/17 08:00 97.1 103 26 113/69 (84) 09/24/17 07:33 95 Nasal Cannula 2.00 09/24/17 07:30 96 24 122/80 (94) 84 09/24/17 07:00 89 9 135/73 (93) 95 09/24/17 06:20 13 09/24/17 06:00 101 09/24/17 05:08 26 09/24/17 04:00 108 09/24/17 04:00 97.7 108 17 122/76 (91) 99 09/24/17 02:00 106 09/24/17 00:00 97.5 98 18 109/64 (79) 94 09/24/17 00:00 98 09/23/17 22:19 22 09/23/17 22:00 100 09/23/17 21:30 22 09/23/17 21:30 22 09/23/17 21:25 22 09/23/17 20:04 98 Nasal Cannula 2.00 09/23/17 20:00 93 09/23/17 20:00 98.2 93 28 122/80 (94) 78 09/23/17 18:30 94 22 116/83 (94) 09/23/17 18:00 92 09/23/17 18:00 92 20 138/78 (98) 09/23/17 17:30 91 26 137/86 (103) 78 09/23/17 17:00 96 28 138/85 (102) 09/23/17 17:00 96 09/23/17 16:30 98 28 130/92 (105) 09/23/17 16:00 97.8 101 29 143/82 (102) 09/23/17 16:00 101 09/23/17 15:30 99 30 131/82 (98) 09/23/17 15:00 105 27 127/73 (91) 88 09/23/17 15:00 108 09/23/17 14:30 100 26 111/76 (88) 99 09/23/17 14:00 98 09/23/17 14:00 98 20 120/85 (97) 79 09/23/17 13:53 24 09/23/17 13:53 24 09/23/17 13:30 98 21 116/68 (84) 09/23/17 13:00 98 26 120/72 (88) 86 09/23/17 13:00 98 09/23/17 12:30 92 23 124/81 (95) 95 09/23/17 12:00 97.9 96 20 114/61 (78) 09/23/17 12:00 96 09/23/17 11:30 93 20 122/75 (91) 09/23/17 11:00 98 09/23/17 11:00 98 24 124/80 (95) 91 Physical Exam Va cc at near OD 20/30, OS 20/30 EOM full OU, no diplopia CVF full OU Pupils 2-1 no APD OU IOP normal to palpation OU Anterior exam OD - normal eyelid, C/S W&Q, K clear, AC deep, pupil round, lens clear OS - normal eyelid, C/S W&Q, K clear, AC deep, pupil round, lens clear Dilated exam OD - ON s/p/f, ves normal, vit clear, retina flat OS - ON s/p/f, ves normal, vit clear, retina flat Laboratory Laboratory Tests Test 09/23/17 12:06 C-Reactive Protein 16.00 Hepatitis A IgM Antibody NEGATIVE Hepatitis B Surface Antigen NEGATIVE Hepatitis B Core IgM Antibody NEGATIVE Hepatitis C Antibody NEGATIVE Date/Time Source Procedure Growth Status 09/23/17 12:06 Blood Peripheral Blood Fungal Culture Pending Received 09/23/17 12:06 Blood Peripheral Blood Fungal Culture Pending Received 09/18/17 11:45 Sputum Expectorated Sputum Gram Stain - Final Complete 09/18/17 11:45 Sputum Culture - Final Pseudomonas Aeruginosa Multi-Drug Resistant S. Aureus Mrsa Complete 09/18/17 11:56 Urine Catheterized Urine Legionella Antigen - Final PRESUMPTIVE NEGATIVE FOR LEGIONELLA P... Complete 09/18/17 11:56 Urine Catheterized Urine Streptococcus pneumoniae Antigen (M - Final PRESUMPTIVE NEGATIVE FOR STREPTOCOCCU... Complete 09/21/17 09:00 Abscess Lung Fungal Smear - Final NO FUNGAL ELEMENTS SEEN. Resulted 09/21/17 09:00 Abscess Lung Fungal Culture Pending Resulted Result Diagram: 09/22/17 0335 09/22/175 Assessment and Plan Problem List: (1) CMV pneumonia ICD Codes: B25.0 - Cytomegaloviral pneumonitis Plan: No CMV retinitis seen on dilated exam. Usually only present when CD4 is below 50. Mena Barnes MD Sep 24, 2017 10:49
[2017-09-24] MEDS: LINEZOLID 600 MG TAB PO SCH ×2 (11:43→20:10)
[2017-09-24] MEDS: SODIUM CHLOR 0.9% 1000 ML INJ 1,000 ML IV SCH (12:41)
--- NOTE | 2017-09-24 14:08 | HHI.GIFU ---
Subjective Remarks Pt resting in bed, partner at bedside. EAting some. wants to pursue endoscopic w/u at [place]. (Itzel Bland) Objective Vitals I&O Vital Signs Date Time Temp Pulse Resp B/P (MAP) Pulse Ox O2 Delivery O2 Flow Rate FiO2 09/24/17 12:40 24 09/24/17 08:00 97.1 103 26 113/69 (84) 09/24/17 07:33 95 Nasal Cannula 2.00 09/24/17 07:30 96 24 122/80 (94) 84 09/24/17 07:00 89 9 135/73 (93) 95 09/24/17 06:20 13 09/24/17 06:00 101 09/24/17 05:08 26 09/24/17 04:00 108 09/24/17 04:00 97.7 108 17 122/76 (91) 99 09/24/17 02:00 106 09/24/17 00:00 97.5 98 18 109/64 (79) 94 09/24/17 00:00 98 09/23/17 22:19 22 09/23/17 22:00 100 09/23/17 21:30 22 09/23/17 21:30 22 09/23/17 21:25 22 09/23/17 20:04 98 Nasal Cannula 2.00 09/23/17 20:00 93 09/23/17 20:00 98.2 93 28 122/80 (94) 78 09/23/17 18:30 94 22 116/83 (94) 09/23/17 18:00 92 09/23/17 18:00 92 20 138/78 (98) 09/23/17 17:30 91 26 137/86 (103) 78 09/23/17 17:00 96 28 138/85 (102) 09/23/17 17:00 96 09/23/17 16:30 98 28 130/92 (105) 09/23/17 16:00 97.8 101 29 143/82 (102) 09/23/17 16:00 101 09/23/17 15:30 99 30 131/82 (98) 09/23/17 15:00 105 27 127/73 (91) 88 09/23/17 15:00 108 09/23/17 14:30 100 26 111/76 (88) 99 I/O 09/23/17 09/23/17 09/23/17 09/24/17 09/24/17 09/24/17 07:00 15:00 23:00 07:00 15:00 23:00 Intake Total 1242 ml 958 ml 1450 ml 1160.8 ml Output Total 1135 ml 1770 ml 1185 ml Balance 107 ml 958 ml -320 ml -24.2 ml Intake Oral 300 ml 1450 ml 350 ml IV Total 942 ml 958 ml 810.8 ml Output Urine Total 1075 ml 1200 ml 1120 ml Chest Tube Drainage Total 60 ml 570 ml 65 ml # Bowel Movements 0 1 Laboratory Date/Time Source Procedure Growth Status 09/23/17 12:06 Blood Peripheral Blood Fungal Culture Pending Received 09/23/17 12:06 Blood Peripheral Blood Fungal Culture Pending Received 09/18/17 11:45 Sputum Expectorated Sputum Gram Stain - Final Complete 09/18/17 11:45 Sputum Culture - Final Pseudomonas Aeruginosa Multi-Drug Resistant S. Aureus Mrsa Complete 09/18/17 11:56 Urine Catheterized Urine Legionella Antigen - Final PRESUMPTIVE NEGATIVE FOR LEGIONELLA P... Complete 09/18/17 11:56 Urine Catheterized Urine Streptococcus pneumoniae Antigen (M - Final PRESUMPTIVE NEGATIVE FOR STREPTOCOCCU... Complete 09/21/17 09:00 Abscess Lung Fungal Smear - Final NO FUNGAL ELEMENTS SEEN. Resulted 09/21/17 09:00 Abscess Lung Fungal Culture Pending Resulted Imaging Last Impressions Chest CT 09/24/17 0000 Signed Impressions: Service Date/Time: September 01:36 - CONCLUSION: 1. Interval right-sided thoracotomy with right upper lobectomy. 2. Nearly resolved small subcentimeter cavitary nodules in the right lower lobe but minimal progression of 2 small cavitary left upper lobe nodule and development of a single 6 mm solid nodule in the superior segment of the left lower lobe. 3. Mild interval progression of interstitial and groundglass opacities in the left upper lobe consistent with infectious/inflammatory process. 4. Right apical chest tube in place with small right hydropneumothorax. Prominent but stable soft tissue subcutaneous emphysema. 5. Trace left pleural effusion. Charli Linder MD Abdomen/Pelvis CT 09/23/17 0000 Signed Impressions: Service Date/Time: Saturday, September 23, 2017 20:41 - CONCLUSION: 1. Small residual right-sided pneumothorax. 2. Subcutaneous emphysema extending along the right chest wall and inferiorly along the right abdominal wall. 3. Small bilateral pleural effusions. 4. Patchy infiltrate within the lingula of the left upper lobe raising the possibility of focal pneumonia. Clinical correlation is recommended. 5. Compressive atelectasis within the left posterior lung. 6. Some ascites within the abdomen and pelvis. 7. Degenerative changes and scoliosis of the lumbar spine. Claudio Abreu MD Chest X-Ray 09/22/17 0500 Signed Impressions: Service Date/Time: Friday, September 22, 2017 03:36 - CONCLUSION: 1. Stable right apical chest tube without significant pneumothorax. Charli Linder MD Physical Exam ill appearing HEENT: PERRL; normocephalic; atraumatic; no jaundice. CHEST: diminished CARDIAC: tachy ABDOMEN: Soft, nondistended, nontender; no hepatosplenomegaly; bowel sounds are present in all four quadrants. EXTREMITIES: No clubbing, cyanosis, or edema. SKIN: Normal; no rash; no jaundice. 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 (Itzel Bland [facility]) Assessment and Plan Plan ASSESSMENT - 47 yo male with HIV on HAART found to have CMV in lung, GI consulted for EGD and colonoscopy to assess if CMV disseminated to other organs. did not offer any GI complaints during my eval but per EMR he is having some dysphagia and scratchy throat. never had EGD or colonoscopy. At this time he does not want to do bowel prep and colonoscopy, he is recently s/p thoracotomy and lobectomy. He is agreeable to EGD and colonoscopy in a few days. ID is following, ophthalmology consult pending. - anemia - normocytic anemia, likely multifactorial, r/t recent surgery - leukocytosis 09/24/17 pt wants to pursue endoscopic w/u for CMV at [facility]/ that is where he lives. drop in HH. had chest tube removed. CT abd noted. PLAN - EGD & colonoscopy, time and location TBD - monitor labs - continue protonix - antivirals per ID - supportive care - further recs to follow pt seen by myself and Dr Gale and this note on his behalf (Itzel Bland) Plan Patient was seen and examined, agree with above-noted, patient want to hold off on upper endoscopy and colonoscopy until he goes back to [place], I had a discussion with Dr. rodrigue díaz from [place] and she is going to communicate with his doctors to arrange that with a local physician, patient will like to get rid of all his tubes according to him before even considering the procedure, will follow up as needed please call us back if there is a need (Bobby Gale MD) Itzel Bland Sep 24, 2017 14:08 Bobby Gale MD Sep 24, 2017 17:43
--- NOTE | 2017-09-24 15:23 | PD.CAR.PN ---
CVT Progress Note Subjective/Hospital Course: A 47-year-old male, history of HIV positive on heart medication HAART for the last 30 years with a doctor in [facility] who apparently is compliant with his medications with an undetectable viral load, CD-4 1200 He was treated recently with Levaquin for outpatient pneumonia. He presented to [facility] on the , found to have cavitary pneumonia and, because of his HIV, they had also found that his CT scan showed an extensive large cavitary pneumonia, multiple blebs suggested of likely COPD, bullous emphysema and secondary infected blebs. The patient underwent needle aspiration of one of the cavitary lesions and it was complicated by development of a large hemothorax and subcutaneous emphysema with continuous air leak. They transferred the patient to our facility for higher care and for cardiovascular surgery consultation. They consulted Infectious Disease for evaluation of Pseudomonas pneumonia in a patient with preexisting blebs. 09/18 pt still has intermittent air leak / now on 4 liter nasal cannula sitting up in bed, still scheduled for tentative surgery on Thursday 09/21 surgery: 1. Right Posterolateral Muscle Sparing Thoracotomy 2. Right Upper Lobectomy 3. Lysis of Adhesions 4. 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 incision intact right posterior lateral chest wall HEAD: Normocephalic. EYES: No scleral icterus. No injection or drainage. NECK: Supple, trachea midline. No JVD or lymphadenopathy. CARDIOVASCULAR: Regular rate and rhythm without murmurs, gallops, or rubs. RESPIRATORY: Breath sounds equal bilaterally. No accessory muscle use. few coarse breath sounds chest tube removed GASTROINTESTINAL: Abdomen soft, non-tender, nondistended. MUSCULOSKELETAL: No cyanosis, or edema. BACK: Nontender without obvious deformity. No CVA tenderness. Vital Signs Date Time Temp Pulse Resp B/P (MAP) Pulse Ox O2 Delivery O2 Flow Rate FiO2 09/24/17 12:40 24 09/24/17 08:00 97.1 103 26 113/69 (84) 09/24/17 07:33 95 Nasal Cannula 2.00 09/24/17 07:30 96 24 122/80 (94) 84 09/24/17 07:00 89 9 135/73 (93) 95 09/24/17 06:20 13 09/24/17 06:00 101 09/24/17 05:08 26 09/24/17 04:00 108 09/24/17 04:00 97.7 108 17 122/76 (91) 99 09/24/17 02:00 106 09/24/17 00:00 97.5 98 18 109/64 (79) 94 09/24/17 00:00 98 09/23/17 22:19 22 09/23/17 22:00 100 09/23/17 21:30 22 09/23/17 21:30 22 09/23/17 21:25 22 09/23/17 20:04 98 Nasal Cannula 2.00 09/23/17 20:00 93 09/23/17 20:00 98.2 93 28 122/80 (94) 78 09/23/17 18:30 94 22 116/83 (94) 09/23/17 18:00 92 09/23/17 18:00 92 20 138/78 (98) 09/23/17 17:30 91 26 137/86 (103) 78 09/23/17 17:00 96 28 138/85 (102) 09/23/17 17:00 96 09/23/17 16:30 98 28 130/92 (105) 09/23/17 16:00 97.8 101 29 143/82 (102) 09/23/17 16:00 101 09/23/17 15:30 99 30 131/82 (98) Result Diagram: 09/22/1733409/22/17334 (1) COPD (chronic obstructive pulmonary disease) (2) Cavitary lesion of lung (3) HIV disease (4) Pneumothorax on right Plan: right thoracotomy right upper lobectomy on 09/21 chest tube removed, 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 + CMV pneumonitis ID following Rosemary Montes Sep 24, 2017 15:23
[2017-09-24] MEDS ORDERED: oxyCODONE/ACETAMINOPHEN 5 MG/325 MG TAB PO PRN (15:30)
[2017-09-24] MEDS: oxyCODONE/ACETAMINOPHEN 5 MG/325 MG TAB PO PRN ×2 (17:48→21:28)
[2017-09-24] MEDS: PANTOPRAZOLE SOD 40 MG DELAYED RELEASE TAB PO SCH (20:10)
[2017-09-24] MEDS: DOCUSATE CALCIUM 240 MG CAP PO SCH ×2 (20:10→21:00)
[2017-09-25] VITALS (18 sets, daily range): BP systolic 105–150; BP diastolic 65–84; PULSE 79–111; RESP 24–55; TEMP 98.4–99.4; O2SAT 75–100
[2017-09-25] MEDS: CHLORHEXIDINE GLUCONATE 2 % 1 PACK (2 CLOTHS) TOP SCH (00:35)
[2017-09-25] MEDS: SODIUM CHLOR 0.9% 1000 ML INJ 1,000 ML IV SCH ×2 (00:35→13:37)
[2017-09-25] MEDS: CEFTOLOZANE-TAZOBACTAM INJ 1,500 MG in SODIUM CHLORIDE 0.9% INJ 100 ML IV SCH ×3 (01:38→17:49)
[2017-09-25] MEDS: oxyCODONE/ACETAMINOPHEN 5 MG/325 MG TAB PO PRN ×4 (01:38→17:48)
[2017-09-25] MEDS: RESP: ALBUTEROL 2.5 MG/3 ML NEB (SCH) NEB ×3 (03:13→14:35)
[2017-09-25] MEDS: ACETAMINOPHEN/HYDROcodone 325 MG/5 MG TAB PO PRN (03:19)
[2017-09-25] MEDS: HEPARIN SODIUM - SQ 10,000 UNITS/ML VIAL SQ SCH ×2 (05:36→13:35)
[2017-09-25] MEDS: GANCICLOVIR IV SCH ×2 (05:37→18:00)
[2017-09-25] MEDS: SODIUM CHLORIDE 0.9% IV SCH ×2 (05:37→18:00)
[2017-09-25] MEDS: CLOTRIMAZOLE 10 MG TROCHE BUCCAL SCH ×4 (05:37→17:49)
--- NOTE | 2017-09-25 06:56 | RADRPT ---
EXAM DATE/TIME: 09/25/2017 04:47 [place] COMPARISON: CHEST SINGLE AP, September 22, 2017, 3:36. INDICATIONS : Chest tube removal. Evaluate for pneumothorax. MEDICAL HISTORY : None. SURGICAL HISTORY : None. ENCOUNTER: Subsequent ACUITY: 1 week PAIN SCORE: Non-responsive. LOCATION: chest FINDINGS: Interval removal of right chest drainage tube. There is a small residual right apical pneumothorax m easuring 7 mm. Stable fullness in the right hilar region. The left lung is clear. The heart is nor mal in size. Decreasing subcutaneous emphysema about the left and right chest wall. CONCLUSION: 7 mm residual pneumothorax at the right apex status post chest tube removal. Colton Campo MD on September 25, 2017 at 6:54 Board Certified Radiologist. This report was verified electronically.
[2017-09-25] MEDS: PRAVASTATIN SOD 40 MG TAB PO SCH (09:00)
[2017-09-25] MEDS: MUPIROCIN 2% OINT 1 APPLIC/GM SYR EACH NARE SCH ×2 (09:00→19:59)
--- NOTE | 2017-09-25 11:14 | HHI.IDPN ---
Subjective Subjective Remarks is a 47 y/o CM with PMHx of HIV on HAART for past 30 years per in [place]. I could not reach him at number provided [phone] will attempt to call him when more info available from [facility]. Info from [facility] reviewed, no culture micro data available. Reviewed hospitalist and ID notes and following information obtained so far. Patient is reportedly compliant with HIV meds with undetectable viral load and CD4 unknown. Patient reports to me that he was being treated with oral levaquin as outpatient for Pneumonia. Despite being treated for Pneumonia he had chest pain. When he presented to [facility] with complaints of cough, shortness of breath, and fatigue. He also had a mild fever and chills. The CT of the chest at [facility] revealed extensive large cavitary pneumonia, multiple blebs suggestive of likely COPD and bullous emphysema and secondary infected blebs. Patients PCP status is not known at present time and if this bleb is as a result of COPD or PCP related bullae. Initial sputum revealed presumptive Pseudomonas aeruginosa, resistant to Levaquin, sensitive to Zosyn. Patient underwent needle aspiration of one of the cavitary lesions. The procedure was complicated by development of pneumothorax and subcutaneous emphysema with continues air leak. Post procedure patient developed swelling around the neck and therefore it appears patient was transferred to [facility] for higher level of care and possible CT surgery consultation. ID is consulted for evaluation and Mment of Pseudomonas Pneumonia in a patient with preexisiting bleb. Overnight events reviewed. No fevers No rash growing PSAE and MRSA from sputum clx. CMV on path. Antibiotics zerbaxa zyvox Gancyclovir Lines Line sites with no e.o infection Past Medical History reviewed Allergies: Coded Allergies: No Known Allergies (Unverified , 09/16/17) Objective . Vital Signs Date Time Temp Pulse Resp B/P (MAP) Pulse Ox O2 Delivery O2 Flow Rate FiO2 09/25/17 07:08 100 Nasal Cannula 6.00 09/25/17 06:00 97 09/25/17 04:00 108 09/25/17 04:00 99.4 108 55 105/71 (82) 100 09/25/17 02:00 79 09/25/17 00:00 89 09/25/17 00:00 99.1 89 36 112/68 (83) 100 09/24/17 22:00 103 09/24/17 21:07 97 Nasal Cannula 2.00 09/24/17 20:00 94 09/24/17 20:00 98.9 94 36 125/82 (96) 100 09/24/17 18:00 110 09/24/17 17:00 103 09/24/17 17:00 103 24 126/87 (100) 80 09/24/17 16:00 99.9 103 27 126/73 (90) 99 09/24/17 16:00 103 09/24/17 15:00 104 09/24/17 15:00 104 17 121/66 (84) 100 09/24/17 14:00 100 20 125/74 (91) 100 09/24/17 14:00 100 09/24/17 13:00 109 19 121/78 (92) 09/24/17 13:00 109 09/24/17 12:40 24 09/24/17 12:00 99 09/24/17 12:00 98.5 99 20 125/83 (97) . Laboratory Tests Test 09/23/17 12:06 C-Reactive Protein 16.00 MG/DL Microbiology Date/Time Source Procedure Growth Status 09/23/17 12:06 Blood Peripheral Blood Fungal Culture Pending Received 09/23/17 12:06 Blood Peripheral Blood Fungal Culture Pending Received 09/23/17 12:06 Blood Peripheral Mycobacterial Culture Pending Received Imaging Last Impressions Chest X-Ray 09/19/17 0600 Signed Impressions: Service Date/Time: Tuesday, September 19, 2017 08:12 - CONCLUSION: 1. Large cavitary mass with associated soft tissue density occupying much of the right upper lung. This appears to cause some displacement of the trachea at the level of the thoracic inlet towards the left. 2. Right chest tube without a pneumothorax seen on this plain film examination. There continues to be extensive subcutaneous emphysema. 3. Mild right pleural effusion. Kosta Jones MD Chest CT 09/17/17 0000 Signed Impressions: Service Date/Time: August 21:03 - CONCLUSION: 1. Large cavitary mass measuring 10.3 x 12.9 cm in the right apex which appears parenchymal and is consistent with cavitary lung mass, abscess or secondarily infected. There are additional bilateral subcentimeter cavitary lung nodules. 2. Well-positioned apical right anterior chest tube with moderate residual right-sided inferior hydropneumothorax. Patient may benefit from second inferiorly placed chest tube. 3. Extensive subcutaneous emphysema and pneumomediastinum. Charli Linder MD Physical Exam CONSTITUTIONAL/GENERAL: This a thin cachectic patient, in no apparent distress. TUBES/LINES/DRAINS: SKIN: No jaundice, rashes, or lesions. Skin temperature appropriate. Not diaphoretic. EYES: Pupils equal and round and reactive. Extraocular motions intact. No scleral icterus. No injection or drainage. Fundi not examined. ENT: Hearing grossly normal. Nose without bleeding or purulent drainage. Throat without visible erythema, exudates, masses, or lesions. No thrush NECK: Trachea midline. Supple, nontender. No palpable thyroid enlargement or nodularity. CARDIOVASCULAR: Regular rate and rhythm without murmurs, gallops, or rubs. No JVD. Peripheral pulses symmetric. RESPIRATORY/CHEST: Symmetric, unlabored respirations. Clear to auscultation. Breath sounds amphoric to R apex + RUL rhonchi. + increased egophonic (markedly ) R apex CT in place R chest with sanguinous drainage GASTROINTESTINAL: Abdomen soft, non-tender, nondistended. GENITOURINARY: Without palpable bladder distension. MUSCULOSKELETAL: Extremities without clubbing, cyanosis, or edema. No joint tenderness or effusion noted. No calf tenderness. No mottling or clubbing. LYMPHATICS: No palpable cervical or supraclavicular adenopathy. NEUROLOGICAL: Awake and alert. Motor and sensory grossly within normal limits. Follows commands. Clear speech . Moves all extremities. PSYCHIATRIC: Cooperative IV line sites with no e.o infection. Assessment & Plan Remarks CMV pneumonia(per verbal report : await final path and special staining ) MDR Pseudomonas Pneumonia. MRSA pneumonia. Lung abscesses s/p RUL lobectomy. 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 No prior PCP. 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 CT in place. Acute resp failure Pneumothorax : ? post procedure vs spontaneous from bleb leak. HIV on HAART reportedly well controlled with undetectable viral load. High grade leucocytosis (sepsis, ? steroids) Recs: Continue Zerbaxa IV (ASP: Worsening pneumonia on Zosyn, MDR PSAE, cannot use Meropenem as resistant in some strains and seizure potential with Gancyclovir) Continue Zyvox change to oral. Continue Gancyclovir IV renal dose adjusted. Follow intraop pathology and special stains. 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 Anita Interiano MD Sep 25, 2017 11:14
[2017-09-25 12:11] LABS: AUTOMATED NEUTROPHIL # 13.2 TH/MM3 (1.8-7.7); BASOPHIL % 0.1 % (0.0-2.0); HEMATOCRIT 24.9 % (39.0-51.0); HEMOGLOBIN 8.4 GM/DL (13.0-17.0); LYMPH % 5.3 % (9.0-44.0); LYMPHOCYTE # 0.8 TH/MM3 (1.0-4.8); MEAN CELL VOLUME 93.1 FL (80.0-100.0); MEAN CORPUSCULAR HEMOGLOBIN 31.4 PG (27.0-34.0); MEAN CORPUSCULAR HGB CONC 33.8 % (32.0-36.0); MEAN PLATELET VOLUME 6.1 FL (7.0-11.0); MONO % 4.2 % (0.0-8.0); MONOCYTE # 0.6 TH/MM3 (0-0.9); NEUT % 90.4 % (16.0-70.0); PLATELET COUNT 329 TH/MM3 (150-450); RED BLOOD COUNT 2.67 MIL/MM3 (4.50-5.90); RED CELL DISTRIBUTION WIDTH 15.3 % (11.6-17.2); WHITE BLOOD COUNT 14.6 TH/MM3 (4.0-11.0)
[2017-09-25 12:30] LABS: ALBUMIN 1.2 GM/DL (3.4-5.0); AST (GOT) 26 U/L (15-37); BICARBONATE 25.2 MEQ/L (21.0-32.0); BLOOD UREA NITROGEN 20 MG/DL (7-18); CALCIUM 7.6 MG/DL (8.5-10.1); CHLORIDE 99 MEQ/L (98-107); CREATININE 0.47 MG/DL (0.60-1.30); GLOMERULAR FILTRATION RATE 190 ML/MIN (>89); GLUCOSE,RANDOM 140 MG/DL (74-106); SODIUM (NA) 134 MEQ/L (136-145)
[2017-09-25 12:31] LABS: ALT (GPT) 34 U/L (12-78)
[2017-09-25 12:34] LABS: ALKALINE PHOSPHATASE 110 U/L (45-117); TOTAL BILIRUBIN ADULT 1.2 MG/DL (0.2-1.0); TOTAL PROTEIN 4.8 GM/DL (6.4-8.2)
[2017-09-25] MEDS: LINEZOLID 600 MG TAB PO SCH ×2 (13:35→19:59)
[2017-09-25] MEDS: FAMOTIDINE 20 MG TAB PO SCH ×2 (13:35→19:58)
[2017-09-25] MEDS: SODIUM CHLORIDE 0.9% FLUSH 10 ML FLUSH IV FLUSH SCH ×2 (13:35→19:59)
[2017-09-25] MEDS: FLUCONAZOLE 200 MG TAB PO SCH (13:35)
[2017-09-25] MEDS: DESCOVY PO SCH (13:36)
[2017-09-25] MEDS: EVOTAZ PO SCH (13:36)
--- NOTE | 2017-09-25 15:12 | PD.CAR.PN ---
CVT Progress Note Subjective/Hospital Course: A 47-year-old male, history of HIV positive on heart medication HAART for the last 30 years with a doctor in [facility] who apparently is compliant with his medications with an undetectable viral load, CD-4 1200 He was treated recently with Levaquin for outpatient pneumonia. He presented to [facility] on the , found to have cavitary pneumonia and, because of his HIV, they had also found that his CT scan showed an extensive large cavitary pneumonia, multiple blebs suggested of likely COPD, bullous emphysema and secondary infected blebs. The patient underwent needle aspiration of one of the cavitary lesions and it was complicated by development of a large hemothorax and subcutaneous emphysema with continuous air leak. They transferred the patient to our facility for higher care and for cardiovascular surgery consultation. They consulted Infectious Disease for evaluation of Pseudomonas pneumonia in a patient with preexisting blebs. 09/18 pt still has intermittent air leak / now on 4 liter nasal cannula sitting up in bed, still scheduled for tentative surgery on Thursday 09/21 surgery: 1. Right Posterolateral Muscle Sparing Thoracotomy 2. Right Upper Lobectomy 3. Lysis of Adhesions 4. 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, wants more pain meds/ despite breakthrough meds pleural fluid + pseudomonas ID following will leave chest tube in , needs to be OOB to facilitate drainage 09/23 pt for EGD and CT chest today still has some old bloody drainage / will leave chest tube in today Pt needs to get OOB / orders written and discussed with nurse 09/24 pt was up in chair yesterday and dumped out of chest tube 570cc only 65 last pm chest tube removed without difficulty leave current dressing in place x 48 hrs check cxr in am for follow up OOB /pt 09/25 remains on o2 CXR noted small 7mm right apical ptx, decreasing subq PTX ok to remove dressing in am and continue packing prior chest tube site will place nursing orders CCM following , ok to transfer back to [place] Objective: GENERAL: SKIN: Warm and dry.decreasing sub q emphysema HEAD: Normocephalic. EYES: No scleral icterus. No injection or drainage. NECK: Supple, trachea midline. No JVD or lymphadenopathy. CARDIOVASCULAR: Regular rate and rhythm without murmurs, gallops, or rubs. RESPIRATORY: Breath sounds equal bilaterally. No accessory muscle use. coarse bilateral breath sounds // dressing right chest tube site GASTROINTESTINAL: Abdomen soft, non-tender, nondistended. MUSCULOSKELETAL: No cyanosis, or edema. BACK: Nontender without obvious deformity. No CVA tenderness. Vital Signs Date Time Temp Pulse Resp B/P (MAP) Pulse Ox O2 Delivery O2 Flow Rate FiO2 09/25/17 07:08 100 Nasal Cannula 6.00 09/25/17 06:00 97 09/25/17 04:00 108 09/25/17 04:00 99.4 108 55 105/71 (82) 100 09/25/17 02:00 79 09/25/17 00:00 89 09/25/17 00:00 99.1 89 36 112/68 (83) 100 09/24/17 22:00 103 09/24/17 21:07 97 Nasal Cannula 2.00 09/24/17 20:00 94 09/24/17 20:00 98.9 94 36 125/82 (96) 100 09/24/17 18:00 110 09/24/17 17:00 103 09/24/17 17:00 103 24 126/87 (100) 80 09/24/17 16:00 99.9 103 27 126/73 (90) 99 09/24/17 16:00 103 Labs: Laboratory Tests Test 09/25/17 11:31 White Blood Count 14.6 TH/MM3 (4.0-11.0) Red Blood Count 2.67 MIL/MM3 (4.50-5.90) Hemoglobin 8.4 GM/DL (13.0-17.0) Hematocrit 24.9 % (39.0-51.0) Mean Corpuscular Volume 93.1 FL (80.0-100.0) Mean Corpuscular Hemoglobin 31.4 PG (27.0-34.0) Mean Corpuscular Hemoglobin Concent 33.8 % (32.0-36.0) Red Cell Distribution Width 15.3 % (11.6-17.2) Platelet Count 329 TH/MM3 (150-450) Mean Platelet Volume 6.1 FL (7.0-11.0) Neutrophils (%) (Auto) 90.4 % (16.0-70.0) Lymphocytes (%) (Auto) 5.3 % (9.0-44.0) Monocytes (%) (Auto) 4.2 % (0.0-8.0) Eosinophils (%) (Auto) 0.0 % (0.0-4.0) Basophils (%) (Auto) 0.1 % (0.0-2.0) Neutrophils # (Auto) 13.2 TH/MM3 (1.8-7.7) Lymphocytes # (Auto) 0.8 TH/MM3 (1.0-4.8) Monocytes # (Auto) 0.6 TH/MM3 (0-0.9) Eosinophils # (Auto) 0.0 TH/MM3 (0-0.4) Basophils # (Auto) 0.0 TH/MM3 (0-0.2) CBC Comment DIFF FINAL Differential Comment Blood Urea Nitrogen 20 MG/DL (7-18) Creatinine 0.47 MG/DL (0.60-1.30) Random Glucose 140 MG/DL (74-106) Total Protein 4.8 GM/DL (6.4-8.2) Albumin 1.2 GM/DL (3.4-5.0) Calcium Level 7.6 MG/DL (8.5-10.1) Alkaline Phosphatase 110 U/L (45-117) Aspartate Amino Transf (AST/SGOT) 26 U/L (15-37) Alanine Aminotransferase (ALT/SGPT) 34 U/L (12-78) Total Bilirubin 1.2 MG/DL (0.2-1.0) Sodium Level 134 MEQ/L (136-145) Potassium Level 3.5 MEQ/L (3.5-5.1) Chloride Level 99 MEQ/L (98-107) Carbon Dioxide Level 25.2 MEQ/L (21.0-32.0) Anion Gap 10 MEQ/L (5-15) Estimat Glomerular Filtration Rate 190 ML/MIN (>89) Result Diagram: 09/25/17 1131 09/25/17 1131 (1) COPD (chronic obstructive pulmonary disease) (2) Cavitary lesion of lung (3) HIV disease (4) Pneumothorax on right Plan: right thoracotomy right upper lobectomy on 09/21 f/u CXR in am pain control pulm toileting OOB . + CMV pneumonitis ID following ok to transfer back to [facility] Rosemary MontesP Sep 25, 2017 15:12
--- NOTE | 2017-09-25 17:10 | HHI.CCPN ---
Subjective Remarks/Hospital Course 09/16: 47-year-old very pleasant gentleman with past medical history of HIV on HAART meds at home, compliant with medications and followed by Dr. Preston in [place] for almost 30 years ([phone]) presented to [facility] with complaints of cough, shortness of breath, and fatigue. He also had a mild fever and chills. The CT of the chest at [facility] revealed extensive large cavitary pneumonia, multiple blebs suggestive of likely COPD and bullous emphysema and secondary infected blebs. Initial sputum revealed presumptive Pseudomonas aeruginosa, resistant to Levaquin, sensitive to Zosyn. Patient underwent needle aspiration of one of the cavitary lesions. The procedure was complicated by development of pneumothorax and subcutaneous emphysema with continues air leak. For this the patient is transferred to [facility] for higher level of care and possible CT surgery consultation. 09/17: Remains on partial rebreather. Persistent large air leak noted from right sided chest tube. Complains of chest pain off and on. 09/18 Patient is on partial rebreather with sats 98-100%. Afebrile. 09/19. Complains of cough with sputum production and states he remains sitting upright because dyspneic when flat. On NC. Intermittent air leak persists with R sided chest tube. Some pain at chest tube site. States he was hallucinating after Restoril and never wants to take that again. Subjective 09/20: Requesting viscous lidocaine for scratchy throat. Plan for lobectomy tomorrow 09/21. Requesting general diet. Positive BM 3. Positive air leak right-sided chest tube. Chest x-ray ordered for a.m. 09/21. 09/21 Patient s/p Right Thoracotomy, RUL Lobectomy, Lysis of Adhesions and drainage of Abscess this morning he was extubated in PACU now on 3L. Afebrile. 09/22 No events overnight. On morphine [employer]PATIENT [employer] for pain. Afebrile. 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 Further workup ordered by ID including endoscopy and CT chest abdomen pelvis and ophthalmology consult. C/O pain at chest tube site 09/24: On 4 L nasal cannula. Awaiting EGD and colonoscopy. 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 Patient refusing bowel prep today and wishes to defer colonoscopy till tomorrow. 09/25: On 2-6 L nasal cannula. Resting comfortably. Awaiting transfer back to [facility]. Wishes to have EGD and colonoscopy done there. Objective Vital Signs Date Time Temp Pulse Resp B/P (MAP) Pulse Ox O2 Delivery O2 Flow Rate FiO2 09/25/17 14:00 104 09/25/17 14:00 28 115/69 (84) 99 09/25/17 12:00 98.4 09/25/17 07:08 Nasal Cannula 6.00 09/24/17 07:33 Intake and Output 09/25/17 09/25/17 09/26/17 08:00 16:00 00:00 Intake Total 580 ml Output Total 500 ml Balance 80 ml Result Diagram: 09/25/17 1131 09/25/17 1131 Imaging Last Impressions Chest X-Ray 09/22/17 0500 Signed Impressions: Service Date/Time: Friday, September 22, 2017 03:36 - CONCLUSION: 1. Stable right apical chest tube without significant pneumothorax. Charli Linder MD Chest CT 09/17/17 0000 Signed Impressions: Service Date/Time: August 21:03 - CONCLUSION: 1. Large cavitary mass measuring 10.3 x 12.9 cm in the right apex which appears parenchymal and is consistent with cavitary lung mass, abscess or secondarily infected. There are additional bilateral subcentimeter cavitary lung nodules. 2. Well-positioned apical right anterior chest tube with moderate residual right-sided inferior hydropneumothorax. Patient may benefit from second inferiorly placed chest tube. 3. Extensive subcutaneous emphysema and pneumomediastinum. Charli Linder MD Objective Remarks GENERAL: 47-year-old male resting in bed in no acute distress SKIN: Warm and dry, adequately perfused. HEAD: Normocephalic. EYES: No scleral icterus. No injection or drainage. NECK: Supple, trachea midline. No JVD or lymphadenopathy. CARDIOVASCULAR: RRR. S1, S2 no S4. Without murmurs clicks, rubs RESPIRATORY: Breath sounds more distant on right mid lung field with rhonchi RUL. No wheeze or rales. Dressing over thoracotomy site in place. GASTROINTESTINAL: Abdomen soft, non-tender, scaphoid, bowel sounds present. MUSCULOSKELETAL: No significant peripheral edema. NEURO EXAM: Awake alert oriented 3, cranial nerves grossly intact. Moves all extremities spontaneously without apparent focal deficit. A/P Assessment and Plan Neuro/Psych: Monitor neuro status Acetaminophen 650 mg by mouth every 6 hours when necessary fever/pain 1-2 Hydrocodone/acetaminophen 10/325 one tablet q4 hours prn pain 3-10. Hydromorphone 1 mg IV every 4 hours as needed for breakthrough pain Pulm: Hypoxia with respiratory insufficiency secondary to: Right upper lobe Cavitary lung mass Right hydro Pneumothorax following CT guided needle aspirate of RUL at outside facility 09/14/17. Per procedure note at outside hospital 6 mLs of thick aspirate was obtained and sent to lab for analysis. Chest tube placed OSH ( [facility]) for iatrogenic PTX 09/13 Subcutaneous emphysema Pseudomonas pneumonia MDRO and MRSA pneumonia CMV pneumonitis COPD Ongoing tobaccoism s/p Right Thoracotomy, RUL Lobectomy, Lysis of Adhesions and drainage of Abscess by Dr. Camacho Pathology showing CMV pneumonitis, ganciclovir started by ID on 09/23 Continue with oxygen keep sat >92% Albuterol/ipratropium aerosols every 8 hours with albuterol aerosols every 2 hours as needed Dyspnea Pulmonology (Dr. Gregg Minor) and CTS (Dr. Camacho) following. Monitor CT drainage-CT surgery may remove chest tube today 09/14 - Path report from [facility] states " right lung abscess fluid for cytologic exam with smear and cellblock: Abscess contents, negative for malignant cells" CV: Hyperlipidemia Monitor HR and BP keep MAP>65mmHg 2D echo 09/18/17 - ejection fraction 50-55%. Normal RV function. No vegetations. Home Pitavastatin 2 mg daily converted to pravastatin 40 mg by mouth daily. GI: Hypoalbuminemia On PO diet Stop the IV fluids Famotidine for GI prophylaxis Docusate sodium/senna 1 tablet twice a day for bowel regimen FEN/RENAL/: Chronic severe protein energy malnutrition Hypoalbuminemia Mild hyponatremia Hypophosphatemia Monitor renal function, I/O's, electrolytes replacement per protocol ID: HIV CMV pneumonitis Sepsis Cavitary lung mass/abscess Pseudomonas MDRO/MRSA pneumonia MRSA nasal swab positive ID has continued HAART regimen per Dr. Preston (patient's HIV/ID physician in [facility]). Patient taking on meds Emtricitabine 200 grams/Tenofovir 25 grams daily,Atazanavir 300 milligrams/Cobicistat 150 mg po daily. Antibiotics per ID, Dr. Interiano: Zyvox, Zosyn switched to zerbaxa 09/24, fluconazole. Pathology showing CMV pneumonitis, ganciclovir started by ID 09/23/17 Mupirocin twice a day for universal decolonization protocol [employer] From [facility]: Gram stain oral fluid: Few gram-negative bacilli, many white blood cells on final report. Right lung abscess deep culture with Pseudomonas sensitive to gentamicin and tobramycin. States sensitive to piperacillin/tazobactam... BUCK abscess fluid 64 ? defer to ID. AFB and fungal smear negative, culture pending. Microbiology: Blood cultures 2 - 09/17 - no growth Sputum - 09/18 - Pseudomonas pneumonia MDRO positive, MRSA Urine Legionella and pneumococcal antigen -09/18 Heme: Leukocytosis Normocytic anemia Monitor CBC. Follow trends Endo: Hyperglycemia critical illness Bedside glucose every before meals/at bedtime with low-dose sliding scale as indicated DVT GI prophylaxis SCDs/ heparin 5000 subcutaneous every 8 hours -Famotidine for stress ulcer prophylaxis ACCESS: PIV Transferred to hospitalist service for further medical management for a.m. and transfer to floor if patient unable to be transferred to [facility] tonight. D/w CTS, D/W [employer], D/W patient at bedside. CT surgery okay with transferring patient back to [facility]. I spoke with the hospitalist from [facility] Dr. Barnes who will be accepting patient for transfer back to [facility]. Case management coordinating patient transfer. Level 2 Philip Interiano MD Sep 25, 2017 17:10
[2017-09-25] MEDS: PANTOPRAZOLE SOD 40 MG DELAYED RELEASE TAB PO SCH (19:58)
[2017-09-25] MEDS: DOCUSATE CALCIUM 240 MG CAP PO SCH (19:59)
[2017-09-25 23:54] LABS: CD3-/CD16+CD56+ PERCENT 4 % (4-25); CD3-CD16+CD56+ (ABSOLUTE) 53 (70-760); LYMPHOCYTES, ABSOLUTE 1230 (850-3900)
--- NOTE | 2017-09-28 12:46 | HHI.PR ---
Addendum to Inpatient Note Addendum Reason: Additional Documentation Additional Information I tried to reach out to SENTHIL SMART at [place]. I received a call from Dr.Simon Palma at [phone]. I informed him of IHC staining confirming CMV in lung pathology tissue. Also discussed cultures PSAE very MDR and MRSA. Patient has been switched over to Meropenem and Zyvox has been continued. Gancyclovir has also been ordered unsure if patient receiving it. I recommended patient receive a 2 week course of following followed by CT Chest. 1. Zerbaxa IV for 2 weeks 2. Zyvox oral for 2 weeks 3. gancyclovir IV for [address] chest after 2 weeks of this regimen to decide next step for treatment. I encouraged him to keep in touch with his PCP. I informed him that if I was informed of any positive results that I would call him. Anita Interiano MD Sep 28, 2017 12:46
== END 2017-09-25 20:15 | disposition short-term general hospital (02) | DRG 163 ==
LOC: HIMW 19:56 → UNDODISIN 09-22 11:10
PROVIDERS: ADMIT Internal Medicine Critical Care Medicine; ATTEND Internal Medicine Critical Care Medicine
PROC: 0B9 Respiratory System, Drainage (ICD-10-PCS; 2017-09-21)
PROC: 0W9900Z Drainage of Right Pleural Cavity with Drainage Device, Open Approach (ICD-10-PCS; 2017-09-21)
PROC: 3E0T3BZ Introduction of Anesthetic Agent into Peripheral Nerves and Plexi, Percutaneous Approach (ICD-10-PCS; 2017-09-21)
PROC: 30233N1 Transfusion of Nonautologous Red Blood Cells into Peripheral Vein, Percutaneous Approach (ICD-10-PCS; 2017-09-21)
PROC: 0BTC0ZZ Resection of Right Upper Lung Lobe, Open Approach (ICD-10-PCS; principal; 2017-09-21 07:42)
DX: J95.811 Postprocedural pneumothorax (principal); J15.1 Pneumonia due to Pseudomonas; J96.01 Acute respiratory failure with hypoxia; E43 Unspecified severe protein-calorie malnutrition; A41.9 Sepsis, unspecified organism; J15.212 Pneumonia due to Methicillin resistant Staphylococcus aureus; B25.0 Cytomegaloviral pneumonitis; J44.0 Chronic obstructive pulmonary disease with (acute) lower respiratory infection; R13.10 Dysphagia, unspecified; J85.1 Abscess of lung with pneumonia; B20 Human immunodeficiency virus [HIV] disease; J94.8 Other specified pleural conditions; E87.1 Hypo-osmolality and hyponatremia; T81.82XA Emphysema (subcutaneous) resulting from a procedure, initial encounter; Z16.24 Resistance to multiple antibiotics; F17.210 Nicotine dependence, cigarettes, uncomplicated; D64.9 Anemia, unspecified; E78.5 Hyperlipidemia, unspecified; E83.39 Other disorders of phosphorus metabolism; E87.6 Hypokalemia; E88.09 Other disorders of plasma-protein metabolism, not elsewhere classified; Z68.20 Body mass index [BMI] 20.0-20.9, adult; R73.9 Hyperglycemia, unspecified; E88.1 Lipodystrophy, not elsewhere classified
CPT/HCPCS: 36430; 71045; 71260; 71270; 74177; 80048; 80053; 80074; 80170; 80202; 82948; 83605; 83735; 84100; 85007; 85014; 85018; 85025; 85027; 85384; 85610; 85730; 86140; 86355; 86357; 86359; 86360; 86850; 86900; 86901; 86920; 87015; 87040; 87070; 87077; 87102; 87103; 87116; 87186; 87205; 87206; 87449; 87497; 87535; 87641; 88112; 88173; 88305; 88309; 88312; 88342; 93005; 93306; 94150; 94640; 94664; C9290; J0131; J0456; J0690; J0692; J0695; J1100; J1170; J1570; J1580; J1644; J1885; J2020; J2250; J2270; J2370; J2405; J2543; J2710; J3010; J3370; J7030; J7042; J7050; J7060; J7613; P9016; Q9963; Q9967